=== PATIENT | female | born 1985 | race American Indian/Alaskan Native ===

== ENCOUNTER 2017-10-13 11:04 | Emergency (ER) | payer BC, OTHER ==
[2017-10-13] MEDS ORDERED: DUONEB *Not for PRN Use IH ONE ×2 (11:18→11:19)
[2017-10-13] MEDS ORDERED: XOPENEX IH ONE (11:36)
--- NOTE | 2017-10-13 11:40 | Emergency Department Report ---
ED Asthma HPI - General Chief Complaint: Adult Asthma Stated Complaint: MEGHAN/ASTHMA Time Seen by Provider: 10/13/17 11:24 Source: patient Mode of arrival: Ambulatory Limitations: No Limitations - History of Present Illness Initial Comments: Patient is a 32 years old female with history of asthma, presented to the ER with 3 weeks history of cough, shortness of breath and wheezing. Patient stated her symptoms better and for the last 2 days to get worse again. Productive cough with greenish sputum. Patient denied any fever, nausea or vomiting. No chest pain. Patient is a status post 1 month ago. MD Complaint: "asthma attack", shortness of breath, wheezing -: days(s), week(s) Asthma History: childhood onset Severity: moderate Context: recent URI Associated Symptoms: productive cough Treatments Prior to Arrival: inhaled bronchodilator, inhaled steroid - Related Data Current Asthma Therapy: inhaled bronchodilator, inhaled steroid Previous Rx's Medication Instructions Recorded Last Taken Type HYDROcodone/APAP 5-325 [[place] 1 each PO Q6HR PRN #12 tablet 12/26/15 Unknown Rx 5/325] Cyclobenzaprine [Flexeril] 10 mg PO TID PRN #15 tablet 06/16/16 Unknown Rx Ibuprofen [Motrin] 800 mg PO Q8HR PRN #15 tablet 06/16/16 Unknown Rx Allergies Allergy/AdvReac Type Severity Reaction Status Date / Time No Known Allergies Allergy Verified 12/26/15 00:24 ED Review of Systems ROS: Stated complaint: MEGHAN/ASTHMA Other details as noted in HPI Comment: All other systems reviewed and negative Respiratory: cough, shortness of breath, SOB with exertion, SOB at rest, wheezing Cardiovascular: denies: chest pain, palpitations Gastrointestinal: denies: abdominal pain, nausea, vomiting, diarrhea, hematochezia Neurological: denies: headache, weakness, numbness ED Past Medical Hx - Past Medical History Previous Medical History?: Yes Hx Asthma: Yes Additional medical history: Chronic TMJ - Surgical History Past Surgical History?: Yes Additional Surgical History: Left TMJ surgery - Social History Smoking Status: Current Every Day Smoker Substance Use Type: None - Medications Home Medications: Home Medications Medication Instructions Recorded Confirmed Last Taken Type HYDROcodone/APAP 5-325 [[place] 1 each PO Q6HR PRN #12 tablet 12/26/15 Unknown Rx 5/325] Cyclobenzaprine [Flexeril] 10 mg PO TID PRN #15 tablet 06/16/16 Unknown Rx Ibuprofen [Motrin] 800 mg PO Q8HR PRN #15 tablet 06/16/16 Unknown Rx ED Physical Exam - General Limitations: No Limitations General appearance: alert, in distress (moderate respiratory distress) - Head Head exam: Present: atraumatic, normocephalic, normal inspection - Eye Eye exam: Present: normal appearance, PERRL - ENT ENT exam: Present: normal exam, normal orophraynx, mucous membranes moist - Neck Neck exam: Present: normal inspection, full ROM. Absent: tenderness, meningismus - Respiratory Respiratory exam: Present: respiratory distress, wheezes, rhonchi, decreased breath sounds, prolonged expiratory. Absent: rales, stridor, chest wall tenderness, accessory muscle use - Cardiovascular Cardiovascular Exam: Present: regular rate, normal rhythm, normal heart sounds - GI/Abdominal GI/Abdominal exam: Present: soft, normal bowel sounds. Absent: distended, tenderness, guarding, rebound, rigid, organomegaly, mass, bruit, pulsatile mass , hernia - Extremities Exam Extremities exam: Present: normal inspection, full ROM, normal capillary refill. Absent: tenderness, pedal edema, joint swelling, calf tenderness - Back Exam Back exam: Present: normal inspection, full ROM. Absent: CVA tenderness (R), CVA tenderness (L) - Neurological Exam Neurological exam: Present: alert, oriented X3, CN II-XII intact, normal gait, reflexes normal. Absent: abnormal gait, motor sensory deficit - Skin Skin exam: Present: warm, intact, normal color ED Course Vital Signs 10/13/17 10/13/17 10/13/17 11:10 11:18 11:20 Temperature 98.7 F Pulse Rate 95 H Pulse Rate [ 83 Posterior Bilateral Throughout] Respiratory 16 Rate Respiratory 22 Rate [Posterior Bilateral Throughout] Blood Pressure 159/102 O2 Sat by Pulse 95 96 Oximetry 10/13/17 10/13/17 10/13/17 11:28 11:30 12:00 Temperature Pulse Rate 91 H Pulse Rate [ Posterior Bilateral Throughout] Respiratory 11 L 13 Rate Respiratory Rate [Posterior Bilateral Throughout] Blood Pressure 141/89 127/56 O2 Sat by Pulse 98 100 100 Oximetry 10/13/17 10/13/17 10/13/17 12:02 12:03 12:30 Temperature Pulse Rate Pulse Rate [ 85 79 Posterior Bilateral Throughout] Respiratory Rate Respiratory 22 22 Rate [Posterior Bilateral Throughout] Blood Pressure 141/89 O2 Sat by Pulse 83 L Oximetry 10/13/17 12:43 Temperature Pulse Rate Pulse Rate [ 103 H Posterior Bilateral Throughout] Respiratory Rate Respiratory 20 Rate [Posterior Bilateral Throughout] Blood Pressure O2 Sat by Pulse Oximetry - Reevaluation(s) Reevaluation #1: 10/13/17 13:07 Patient stated that she is feeling better but she still tight. I order 1 g of magnesium sulfate. ED Medical Decision Making - Lab Data Result diagrams: 10/13/17 11:45 10/13/17 11:45 Critical care attestation.: If time is entered above; I have spent that time in minutes in the direct care of this critically ill patient, excluding procedure time. ED Disposition Clinical Impression: Asthma exacerbation attacks Disposition: DC-01 TO HOME OR SELFCARE Is pt being admited?: No Condition: Stable Instructions: Asthma (ED) Referrals: PRIMARY CARE, [Primary Care Provider] - 3-5 Days
[2017-10-13] MEDS ORDERED: ZOFRAN IV ONE (11:46)
[2017-10-13] MEDS ORDERED: MORPHINE IV ONE (11:46)
[2017-10-13] MEDS ORDERED: MORPHINE ONE (11:47)
[2017-10-13] MEDS ORDERED: ZOFRAN ONE (11:47)
[2017-10-13 12:02] LABS: Basophils % (Auto) 0.6 % (0.0-1.8); Eosinophils # (Auto) 0.9 K/mm3 (0.0-0.4); Eosinophils % (Auto) 11.6 % (0.0-4.3); Hematocrit 37.3 % (30.3-42.9); Hemoglobin 12.1 gm/dl (10.1-14.3); Lymphocytes # (Auto) 3.2 K/mm3 (1.2-5.4); Lymphocytes % (Auto) 39.4 % (13.4-35.0); Mean Corpuscular HGB Conc 33 % (30-34); Mean Corpuscular Hemoglobin 30 pg (28-32); Mean Corpuscular Volume 93 fl (79-97); Monocytes # (Auto) 0.4 K/mm3 (0.0-0.8); Monocytes % (Auto) 5.4 % (0.0-7.3); Platelet Count 380 K/mm3 (140-440); Red Blood Count 4.02 M/mm3 (3.65-5.03); Red Cell Distribution Width 15.4 % (13.2-15.2)
--- NOTE | 2017-10-13 12:13 | XRay Report ---
AP CHEST: HISTORY: Short of breath, cough AP view of the chest demonstrates a normal mediastinal and cardiac contour with clear lungs and normal bony and soft tissue structures. IMPRESSION: Unremarkable AP chest.
[2017-10-13 12:21] LABS: Alanine Aminotransferase 22 units/L (7-56); Albumin 4.4 g/dL (3.9-5); BUN/Creatinine Ratio 14; Blood Urea Nitrogen 10 mg/dL (7-17); Calcium 9.6 mg/dL (8.4-10.2); Hemolysis Index 14
[2017-10-13] MEDS ORDERED: MAGNESIUM SULFATE IV ONE (13:05)
[2017-10-13] MEDS ORDERED: TORADOL IV ONE (13:52)
[2017-10-13] MEDS ORDERED: MAGNESIUM SULFATE 1 GM in NACL 0.9% 50 ML IV ONE (14:30)
[2017-10-13 15:28] VITALS: BP 143/96
== END 2017-10-13 15:28 | disposition home or self-care (01) ==
LOC: ED 11:04
DX: J45.901 Unspecified asthma with (acute) exacerbation (principal); F17.200 Nicotine dependence, unspecified, uncomplicated
CPT/HCPCS: 36415; 71045; 80053; 83880; 85025; 94640; 96365; 96375; 99284; J1885; J2270; J2405; J2930; J3475

== ENCOUNTER 2018-02-08 22:02 | Emergency (ER) | payer OTHER ==
[2018-02-08 22:08] VITALS: BP 154/97
[2018-02-08] MEDS ORDERED: DECADRON ONE (22:14)
[2018-02-08] MEDS ORDERED: DUONEB *Not for PRN Use IH ONE ×2 (22:15→22:16)
[2018-02-08] MEDS ORDERED: DECADRON IM ONE (22:16)
--- NOTE | 2018-02-08 22:19 | Emergency Department Report ---
ED Asthma HPI - General Chief Complaint: Adult Asthma Stated Complaint: ASTHMA Time Seen by Provider: 02/08/18 22:15 Source: patient Mode of arrival: Ambulatory Limitations: No Limitations - History of Present Illness Initial Comments: 33-year-old known asthmatic comes in reporting that she's been having a shortness of breathing and asthma symptoms for the last 4 days. Patient reports that she's been using her inhaler but not able to control her asthma. Patient denies any fever or chills or nausea no vomiting. She does complain of pleuritic chest pain with taking deep breaths. She also reports that she has thick yellowish mucus when she coughs. -: days(s) (4) Severity: moderate Context: none known Associated Symptoms: productive cough. denies: fever Treatments Prior to Arrival: inhaled bronchodilator - Related Data Current Asthma Therapy: inhaled bronchodilator Previous Rx's Medication Instructions Recorded Last Taken Type ALBUTEROL NEB's [Proventil 0.083% 2.5 mg IH TID PRN #30 nebu 10/13/17 Unknown Rx NEBS] ALBUTEROL Inhaler [ProAir HFA 2 puff IH QID PRN #1 inhalation 02/09/18 Unknown Rx Inhaler] Fluticasone/Salmeterol [Advair 1 each IH BID #1 blst.w.dev 02/09/18 Unknown Rx 100-50 Diskus] Prednisone [predniSONE 10 mg 10 mg PO .TAPER #1 tab.ds.pk 02/09/18 Unknown Rx (6-Day Pack, 21 Tabs)] Allergies Allergy/AdvReac Type Severity Reaction Status Date / Time No Known Allergies Allergy Verified 12/26/15 00:24 ED Review of Systems ROS: Stated complaint: ASTHMA Other details as noted in HPI Constitutional: denies: chills, fever Eyes: denies: eye pain, eye discharge, vision change ENT: denies: ear pain, throat pain Respiratory: cough, shortness of breath, wheezing Cardiovascular: chest pain, dyspnea on exertion Endocrine: no symptoms reported Gastrointestinal: denies: abdominal pain, nausea, diarrhea Genitourinary: denies: urgency, dysuria, discharge Musculoskeletal: denies: back pain, joint swelling, arthralgia Skin: denies: rash, lesions Neurological: denies: headache, weakness, paresthesias Psychiatric: denies: anxiety, depression Hematological/Lymphatic: denies: easy bleeding, easy bruising ED Past Medical Hx - Past Medical History Hx Asthma: Yes Additional medical history: Chronic TMJ - Surgical History Additional Surgical History: Left TMJ surgery - Social History Smoking Status: Former Smoker Substance Use Type: Alcohol - Medications Home Medications: Home Medications Medication Instructions Recorded Confirmed Last Taken Type ALBUTEROL NEB's [Proventil 0.083% 2.5 mg IH TID PRN #30 nebu 10/13/17 Unknown Rx NEBS] ALBUTEROL Inhaler [ProAir HFA 2 puff IH QID PRN #1 inhalation 02/09/18 Unknown Rx Inhaler] Fluticasone/Salmeterol [Advair 1 each IH BID #1 blst.w.dev 02/09/18 Unknown Rx 100-50 Diskus] Prednisone [predniSONE 10 mg 10 mg PO .TAPER #1 tab.ds.pk 02/09/18 Unknown Rx (6-Day Pack, 21 Tabs)] ED Physical Exam - General Limitations: No Limitations General appearance: alert, in no apparent distress - Head Head exam: Present: atraumatic, normocephalic - Eye Eye exam: Present: PERRL, EOMI - ENT ENT exam: Present: mucous membranes moist - Neck Neck exam: Present: full ROM. Absent: lymphadenopathy - Respiratory Respiratory exam: Present: wheezes, rhonchi, chest wall tenderness - Cardiovascular Cardiovascular Exam: Present: regular rate, normal rhythm. Absent: systolic murmur, diastolic murmur, rubs, gallop - GI/Abdominal GI/Abdominal exam: Present: soft, normal bowel sounds - Extremities Exam Extremities exam: Present: normal inspection - Back Exam Back exam: Present: normal inspection - Neurological Exam Neurological exam: Present: alert, oriented X3 - Psychiatric Psychiatric exam: Present: normal affect, normal mood - Skin Skin exam: Present: warm, dry, intact, normal color. Absent: rash ED Course Vital Signs 02/08/18 22:04 Temperature 98.7 F Pulse Rate 93 H Respiratory 22 Rate Blood Pressure 154/97 O2 Sat by Pulse 95 Oximetry - Reevaluation(s) Reevaluation #1: 02/08/18 23:50 Patient has had 1 treatment of DuoNeb. Patient is still very rhonchus and wheezing still reports pain with deep breath Reevaluation #2: 02/09/18 00:59 Patient reports that she feels a little bit better since haven't the second dose of the bronchodilator. Patient is requesting a refill on her Advair which is 100/50. ED Medical Decision Making - Radiology Data Radiology results: report reviewed, image reviewed FINAL REPORT PROCEDURE: Chest. TECHNIQUE: PA and lateral views. HISTORY: asthma attack with shortness of breathing. Pain COMPARISON: No prior studies are available for comparison. FINDINGS: The heart and mediastinum appear normal. The lungs are clear and well expanded. There are no pleural effusions. The soft tissues and regional skeleton are unremarkable. IMPRESSION: Normal study. Transcribed By: [facility] Dictated By: PA CHAUDHARY MD Electronically Authenticated By: PA CHAUDHARY MD Signed Date/Time: 02/08/182309 DD/ 09 TD/TT: 02/08/182309 - Medical Decision Making Patient has been evaluated by this provider fast track. Chest x-ray ordered DuoNeb in dexamethasone 8 mg IM ordered We'll reevaluate patient when she is completed her nebulizer treatment and and this had her steroids a chest x-ray. Discussed the patient and her chest x-ray was within normal limits. D-dimer is normal Breathing has improved since having the second round of a bronchodilator and steriod. Discussed the patient will discharge her home on steroid taper bronchodilator and Advair 100/50. Patient verbalizes understanding Critical care attestation.: If time is entered above; I have spent that time in minutes in the direct care of this critically ill patient, excluding procedure time. ED Disposition Clinical Impression: Asthma exacerbation attacks Qualifiers: Asthma severity: unspecified severity Asthma persistence: unspecified Qualified Code(s): J45.901 - Unspecified asthma with (acute) exacerbation Disposition: DC-01 TO HOME OR SELFCARE Is pt being admited?: No Does the pt Need Aspirin: No Condition: Stable Additional Instructions: Please use asthma medication as prescribed. If symptoms persist or gets worse please follow up with her primary care provider or the emergency room. Prescriptions: ALBUTEROL Inhaler [ProAir HFA Inhaler] 2 puff IH QID PRN #1 inhalation PRN Reason: Shortness Of Breath Fluticasone/Salmeterol [Advair 100-50 Diskus] 1 each IH BID #1 blst.w.dev Prednisone [predniSONE 10 mg (6-Day Pack, 21 Tabs)] 10 mg PO .TAPER #1 tab.ds.pk Forms: Work/School Release Form(ED)
--- NOTE | 2018-02-08 23:15 | XRay Report ---
FINAL REPORT PROCEDURE: Chest. TECHNIQUE: PA and lateral views. HISTORY: asthma attack with shortness of breathing. Pain COMPARISON: No prior studies are available for comparison. FINDINGS: The heart and mediastinum appear normal. The lungs are clear and well expanded. There are no pleural effusions. The soft tissues and regional skeleton are unremarkable. IMPRESSION: Normal study.
[2018-02-08] MEDS ORDERED: XOPENEX IH ONE (23:49)
[2018-02-09 00:19] LABS: Basophils % (Auto) 0.4 % (0.0-1.8); Eosinophils # (Auto) 0.7 K/mm3 (0.0-0.4); Eosinophils % (Auto) 6.1 % (0.0-4.3); Hematocrit 38.8 % (30.3-42.9); Hemoglobin 13.3 gm/dl (10.1-14.3); Lymphocytes # (Auto) 2.2 K/mm3 (1.2-5.4); Lymphocytes % (Auto) 20.3 % (13.4-35.0); Mean Corpuscular HGB Conc 34 % (30-34); Mean Corpuscular Hemoglobin 32 pg (28-32); Mean Corpuscular Volume 95 fl (79-97); Monocytes # (Auto) 0.3 K/mm3 (0.0-0.8); Monocytes % (Auto) 2.8 % (0.0-7.3); Platelet Count 371 K/mm3 (140-440); Red Cell Distribution Width 13.8 % (13.2-15.2)
[2018-02-09 00:33] LABS: BUN/Creatinine Ratio 20; Blood Urea Nitrogen 12 mg/dL (7-17); Calcium 9.1 mg/dL (8.4-10.2); Hemolysis Index 10
== END 2018-02-09 01:05 | disposition home or self-care (01) ==
LOC: ED 22:02
DX: J45.901 Unspecified asthma with (acute) exacerbation (principal); Z87.891 Personal history of nicotine dependence
CPT/HCPCS: 36415; 71046; 80048; 85025; 85379; 96372; 99284; J1100

== ENCOUNTER 2018-03-04 23:22 | Emergency (ER) | payer OTHER ==
[~2018-03-04 23:22] MED LIST: DUONEB *Not for PRN Use IH ONE; PROVENTIL IH ONE
[2018-03-04] MEDS ORDERED: DUONEB *Not for PRN Use IH ONE (23:24)
[2018-03-04] MEDS ORDERED: PROVENTIL IH ONE (23:24)
[2018-03-04 23:38] VITALS: BP 116/77
[2018-03-05] MEDS ORDERED: DELTASONE PO ONE (00:05)
[2018-03-05] MEDS ORDERED: DELTASONE ONE (00:18)
[2018-03-05] MEDS ORDERED: PROVENTIL IH ONE ×3 (01:19→04:00)
[2018-03-05] MEDS ORDERED: BENADRYL ONE (03:51)
[2018-03-05] MEDS ORDERED: TORADOL ONE (03:51)
[2018-03-05] MEDS ORDERED: REGLAN ONE (03:51)
[2018-03-05] MEDS ORDERED: TORADOL IV ONE (03:52)
[2018-03-05] MEDS ORDERED: REGLAN IV ONE (03:52)
[2018-03-05] MEDS ORDERED: BENADRYL IV ONE (03:52)
--- NOTE | 2018-03-05 04:17 | Emergency Department Report ---
ED Asthma HPI - General Chief Complaint: Adult Asthma Stated Complaint: SOB Time Seen by Provider: 03/05/18 04:12 Source: patient Mode of arrival: Ambulatory Limitations: No Limitations - History of Present Illness Initial Comments: 33-year-old female comes in complaining of shortness of breath reporting it's my asthma, whenever my sinuses drain I start coughing and a traditional asthma. Patient reports that she can't get her inhalants for Friday and that's why she's come in. Patient denies any fever or chills no nausea no vomiting chest wheezing and shortness of breath. Patient currently has no known drug allergies patient reports that she takes Advair and Combivent which she reports works the best. She has been using the nebulizer treatments but feels they are not adequate. Patient also complains of a headache that has just started while in fast track. She reports that the headache is bilateral temples achy and sharp. -: days(s) (2) Context: recent URI, ran out of meds Associated Symptoms: productive cough - Related Data Current Asthma Therapy: inhaled bronchodilator, inhaled steroid Previous Rx's Medication Instructions Recorded Last Taken Type ALBUTEROL Inhaler [ProAir HFA 2 puff IH QID PRN #1 inhalation 02/09/18 Unknown Rx Inhaler] Fluticasone/Salmeterol [Advair 1 each IH BID #1 blst.w.dev 02/09/18 Unknown Rx 100-50 Diskus] ALBUTEROL NEB's [Proventil 0.083% 2.5 mg IH TID PRN #30 nebu 03/05/18 Unknown Rx NEBS] Ipratropium/Albuter (Nf) 2 puff IH QID #1 inha 03/05/18 Unknown Rx [Combivent (Nf)] Prednisone [predniSONE 10 mg 10 mg PO .TAPER #1 tab.ds.pk 03/05/18 Unknown Rx (6-Day Pack, 21 Tabs)] Allergies Allergy/AdvReac Type Severity Reaction Status Date / Time No Known Allergies Allergy Verified 12/26/15 00:24 ED Review of Systems ROS: Stated complaint: SOB Other details as noted in HPI ENT: other (postnasal drip) Respiratory: cough, shortness of breath, wheezing Cardiovascular: denies: chest pain Endocrine: no symptoms reported Gastrointestinal: denies: abdominal pain, nausea, diarrhea ED Past Medical Hx - Past Medical History Previous Medical History?: Yes Hx Asthma: Yes Additional medical history: Chronic TMJ - Surgical History Past Surgical History?: Yes Additional Surgical History: Left TMJ surgery - Social History Smoking Status: Former Smoker Substance Use Type: Alcohol - Medications Home Medications: Home Medications Medication Instructions Recorded Confirmed Last Taken Type ALBUTEROL Inhaler [ProAir HFA 2 puff IH QID PRN #1 inhalation 02/09/18 Unknown Rx Inhaler] Fluticasone/Salmeterol [Advair 1 each IH BID #1 blst.w.dev 02/09/18 Unknown Rx 100-50 Diskus] ALBUTEROL NEB's [Proventil 0.083% 2.5 mg IH TID PRN #30 nebu 03/05/18 Unknown Rx NEBS] Ipratropium/Albuter (Nf) 2 puff IH QID #1 inha 03/05/18 Unknown Rx [Combivent (Nf)] Prednisone [predniSONE 10 mg 10 mg PO .TAPER #1 tab.ds.pk 03/05/18 Unknown Rx (6-Day Pack, 21 Tabs)] ED Physical Exam - General Limitations: No Limitations General appearance: alert, in no apparent distress - Head Head exam: Present: atraumatic, normocephalic - ENT ENT exam: Present: mucous membranes moist - Neck Neck exam: Present: normal inspection - Respiratory Respiratory exam: Present: wheezes, prolonged expiratory - Cardiovascular Cardiovascular Exam: Present: regular rate, normal rhythm. Absent: systolic murmur, diastolic murmur, rubs, gallop - GI/Abdominal GI/Abdominal exam: Present: soft, normal bowel sounds ED Course Vital Signs 03/04/18 23:30 Temperature 98.1 F Pulse Rate 84 Respiratory 22 Rate Blood Pressure 116/77 O2 Sat by Pulse 97 Oximetry ED Medical Decision Making - Medical Decision Making Patient has been evaluated by this provider in fast track. Patient has been given duo nebs 2 and albuterol nebs 2 as well as IV Toradol and Reglan and Benadryl for headache. Patient reports that that has helped tremendously. Discussed the patient to increase her fluid intake use her inhalers as prescribed and follow up with her primary care provider if symptoms persist or gets worse. Critical care attestation.: If time is entered above; I have spent that time in minutes in the direct care of this critically ill patient, excluding procedure time. ED Disposition Clinical Impression: Asthma attack Qualifiers: Asthma severity: unspecified severity Asthma persistence: unspecified Qualified Code(s): J45.901 - Unspecified asthma with (acute) exacerbation Migraine Qualifiers: Migraine type: unspecified Status migrainosus presence: without status migrainosus Intractability: intractable Qualified Code(s): G43.919 - Migraine, unspecified, intractable, without status migrainosus Disposition: TO HOME OR SELFCARE Is pt being admited?: No Does the pt Need Aspirin: No Condition: Stable Instructions: Migraine Headache (ED) Additional Instructions: Please use inhalers as prescribed. Please follow up with her primary care provider if symptoms persist or gets worse. Prescriptions: ALBUTEROL NEB's [Proventil 0.083% NEBS] 2.5 mg IH TID PRN #30 nebu PRN Reason: Wheezing Ipratropium/Albuter (Nf) [Combivent (Nf)] 2 puff IH QID #1 inha Prednisone [predniSONE 10 mg (6-Day Pack, 21 Tabs)] 10 mg PO .TAPER #1 tab.ds.pk Referrals: PRIMARY CARE, [Primary Care Provider] - 3-5 Days Forms: Work/School Release Form(ED)
== END 2018-03-05 04:43 | disposition home or self-care (01) ==
LOC: ED 23:22
DX: J45.901 Unspecified asthma with (acute) exacerbation (principal); G43.919 Migraine, unspecified, intractable, without status migrainosus; Z87.891 Personal history of nicotine dependence
CPT/HCPCS: 93005; 93010; 94640; 96374; 96375; 99283; J1200; J1885; J2765; J7512

== ENCOUNTER 2018-04-09 15:30 | Inpatient (IN) | payer OTHER ==
[2018-04-09] MEDS ORDERED: DUONEB *Not for PRN Use IH ONE ×3 (15:47→19:41)
[2018-04-09 15:57] LABS: Basophils # (Auto) 0.1 K/mm3 (0.0-0.1); Basophils % (Auto) 0.7 % (0.0-1.8); Eosinophils % (Auto) 7.5 % (0.0-4.3); Hematocrit 38.1 % (30.3-42.9); Hemoglobin 13.4 gm/dl (10.1-14.3); Lymphocytes % (Auto) 22.4 % (13.4-35.0); Mean Corpuscular HGB Conc 35 % (30-34); Mean Corpuscular Hemoglobin 34 pg (28-32); Mean Corpuscular Volume 97 fl (79-97); Monocytes # (Auto) 0.8 K/mm3 (0.0-0.8); Monocytes % (Auto) 5.7 % (0.0-7.3); Platelet Count 366 K/mm3 (140-440); Red Blood Count 3.93 M/mm3 (3.65-5.03); Red Cell Distribution Width 13.4 % (13.2-15.2)
[2018-04-09 16:43] LABS: BUN/Creatinine Ratio 20; Blood Urea Nitrogen 14 mg/dL (7-17); Calcium 9.3 mg/dL (8.4-10.2); Hemolysis Index 9
--- NOTE | 2018-04-09 19:02 | XRay Report ---
FINAL REPORT EXAM: XR CHEST ROUTINE 2V HISTORY: Shortness of breath TECHNIQUE: PA and lateral views of the chest PRIORS: CXR 02/08/2018 FINDINGS: Lines, tubes, and devices: N/A Lungs and pleura: Trachea is normal in position. Lungs are clear of infiltrate, pleural effusion, vascular congestion, or pneumothorax. No change. Cardiomediastinal silhouette: Cardiac and mediastinal silhouettes are unremarkable. Other: Bony structures are intact. IMPRESSION: No acute cardiopulmonary process seen. No change.
--- NOTE | 2018-04-09 19:17 | Emergency Department Report ---
ED Shortness of Breath HPI - General Chief Complaint: Dyspnea/Respdistress Stated Complaint: CHEST PAIN/ASTHMA Time Seen by Provider: 04/09/18 19:17 Source: patient Mode of arrival: Ambulatory Limitations: No Limitations - History of Present Illness MD Complaint: shortness of breath, cough, "asthma attack" -: Sudden Severity: severe Pain Scale: 8 Consistency: constant Improves With: oxygen, bronchodilators Worsens With: nothing Known History Of: asthma Associated Symptoms: cough Treatments Prior to Arrival: oxygen, bronchodilator - Related Data Home Oxygen Therapy: No Previous Rx's Medication Instructions Recorded Last Taken Type ALBUTEROL Inhaler [ProAir HFA 2 puff IH QID PRN #1 inhalation 02/09/18 Unknown Rx Inhaler] Fluticasone/Salmeterol [Advair 1 each IH BID #1 blst.w.dev 02/09/18 Unknown Rx 100-50 Diskus] ALBUTEROL NEB's [Proventil 0.083% 2.5 mg IH TID PRN #30 nebu 03/05/18 Unknown Rx NEBS] Ipratropium/Albuter (Nf) 2 puff IH QID #1 inha 03/05/18 Unknown Rx [Combivent (Nf)] Prednisone [predniSONE 10 mg 10 mg PO .TAPER #1 tab.ds.pk 03/05/18 Unknown Rx (6-Day Pack, 21 Tabs)] Allergies Allergy/AdvReac Type Severity Reaction Status Date / Time No Known Allergies Allergy Verified 12/26/15 00:24 ED Review of Systems ROS: Stated complaint: CHEST PAIN/ASTHMA Other details as noted in HPI Comment: All other systems reviewed and negative Constitutional: denies: chills, fever Eyes: denies: eye pain, eye discharge ENT: denies: ear pain Respiratory: cough, shortness of breath, SOB at rest Cardiovascular: dyspnea on exertion. denies: chest pain, palpitations Endocrine: no symptoms reported Gastrointestinal: denies: abdominal pain, nausea, vomiting, diarrhea Genitourinary: denies: urgency, dysuria, frequency Musculoskeletal: denies: back pain, joint swelling Skin: denies: rash, lesions Neurological: denies: headache, weakness, numbness Psychiatric: anxiety. denies: depression Hematological/Lymphatic: denies: easy bleeding, easy bruising ED Past Medical Hx - Past Medical History Previous Medical History?: Yes Hx Asthma: Yes Additional medical history: Chronic TMJ, pneumonia - Surgical History Past Surgical History?: Yes Additional Surgical History: Left TMJ surgery - Social History Smoking Status: Former Smoker Substance Use Type: None - Medications Home Medications: Home Medications Medication Instructions Recorded Confirmed Last Taken Type ALBUTEROL Inhaler [ProAir HFA 2 puff IH QID PRN #1 inhalation 02/09/18 Unknown Rx Inhaler] Fluticasone/Salmeterol [Advair 1 each IH BID #1 blst.w.dev 02/09/18 Unknown Rx 100-50 Diskus] ALBUTEROL NEB's [Proventil 0.083% 2.5 mg IH TID PRN #30 nebu 03/05/18 Unknown Rx NEBS] Ipratropium/Albuter (Nf) 2 puff IH QID #1 inha 03/05/18 Unknown Rx [Combivent (Nf)] Prednisone [predniSONE 10 mg 10 mg PO .TAPER #1 tab.ds.pk 03/05/18 Unknown Rx (6-Day Pack, 21 Tabs)] ED Physical Exam - General Limitations: No Limitations General appearance: alert, in no apparent distress - Head Head exam: Present: atraumatic, normocephalic, normal inspection - Eye Eye exam: Present: normal appearance, PERRL, EOMI Pupils: Present: normal accommodation - ENT ENT exam: Present: normal exam, normal orophraynx, mucous membranes moist - Neck Neck exam: Present: normal inspection, full ROM. Absent: tenderness - Respiratory Respiratory exam: Present: respiratory distress, wheezes, rales, rhonchi - Cardiovascular Cardiovascular Exam: Present: normal rhythm, tachycardia, normal heart sounds - GI/Abdominal GI/Abdominal exam: Present: soft, normal bowel sounds. Absent: distended, tenderness, guarding, rebound, rigid - Extremities Exam Extremities exam: Present: normal inspection, full ROM, normal capillary refill. Absent: tenderness - Back Exam Back exam: Present: normal inspection, full ROM. Absent: tenderness, CVA tenderness (R), CVA tenderness (L) - Neurological Exam Neurological exam: Present: alert, oriented X3, CN II-XII intact - Psychiatric Psychiatric exam: Present: normal affect, normal mood, anxious - Skin Skin exam: Present: warm, dry, intact, normal color. Absent: rash ED Course Vital Signs 04/09/18 04/09/18 04/09/18 15:39 15:56 15:58 Temperature 98.0 F Pulse Rate 97 H Pulse Rate [ Anterior Bilateral Throughout] Pulse Rate [ 94 H Bilateral] Respiratory 28 H Rate Respiratory Rate [Anterior Bilateral Throughout] Respiratory 16 Rate [Bilateral ] Blood Pressure 129/85 Blood Pressure [Right] O2 Sat by Pulse 95 95 Oximetry 04/09/18 04/09/18 04/09/18 16:13 16:48 18:09 Temperature Pulse Rate 119 H Pulse Rate [ Anterior Bilateral Throughout] Pulse Rate [ 96 H Bilateral] Respiratory 28 H Rate Respiratory Rate [Anterior Bilateral Throughout] Respiratory 16 Rate [Bilateral ] Blood Pressure Blood Pressure [Right] O2 Sat by Pulse 95 97 Oximetry 04/09/18 04/09/18 04/09/18 18:15 18:30 18:45 Temperature Pulse Rate Pulse Rate [ Anterior Bilateral Throughout] Pulse Rate [ Bilateral] Respiratory Rate Respiratory Rate [Anterior Bilateral Throughout] Respiratory Rate [Bilateral ] Blood Pressure 132/86 137/90 137/90 Blood Pressure [Right] O2 Sat by Pulse 95 97 98 Oximetry 04/09/18 04/09/18 04/09/18 19:00 19:11 19:15 Temperature Pulse Rate Pulse Rate [ Anterior Bilateral Throughout] Pulse Rate [ Bilateral] Respiratory Rate Respiratory Rate [Anterior Bilateral Throughout] Respiratory Rate [Bilateral ] Blood Pressure 129/85 129/85 Blood Pressure [Right] O2 Sat by Pulse 91 98 100 Oximetry 04/09/18 04/09/18 04/09/18 19:31 19:45 20:00 Temperature Pulse Rate Pulse Rate [ Anterior Bilateral Throughout] Pulse Rate [ Bilateral] Respiratory Rate Respiratory Rate [Anterior Bilateral Throughout] Respiratory Rate [Bilateral ] Blood Pressure 144/80 144/80 152/90 Blood Pressure [Right] O2 Sat by Pulse 100 100 95 Oximetry 04/09/18 04/09/18 04/09/18 20:15 20:31 20:45 Temperature Pulse Rate Pulse Rate [ Anterior Bilateral Throughout] Pulse Rate [ Bilateral] Respiratory Rate Respiratory Rate [Anterior Bilateral Throughout] Respiratory Rate [Bilateral ] Blood Pressure 152/90 144/80 144/80 Blood Pressure [Right] O2 Sat by Pulse 96 95 96 Oximetry 04/09/18 04/09/18 04/09/18 21:01 21:15 21:30 Temperature Pulse Rate Pulse Rate [ Anterior Bilateral Throughout] Pulse Rate [ 107 H Bilateral] Respiratory Rate Respiratory Rate [Anterior Bilateral Throughout] Respiratory 20 Rate [Bilateral ] Blood Pressure 133/97 133/97 Blood Pressure [Right] O2 Sat by Pulse 96 97 Oximetry 04/09/18 04/09/18 04/09/18 21:31 21:40 21:45 Temperature Pulse Rate Pulse Rate [ Anterior Bilateral Throughout] Pulse Rate [ 111 H Bilateral] Respiratory Rate Respiratory Rate [Anterior Bilateral Throughout] Respiratory 22 Rate [Bilateral ] Blood Pressure 92/72 92/72 Blood Pressure [Right] O2 Sat by Pulse 99 98 Oximetry 04/09/18 04/09/18 04/09/18 22:00 22:15 22:17 Temperature Pulse Rate Pulse Rate [ Anterior Bilateral Throughout] Pulse Rate [ Bilateral] Respiratory Rate Respiratory Rate [Anterior Bilateral Throughout] Respiratory Rate [Bilateral ] Blood Pressure 136/99 136/99 136/99 Blood Pressure [Right] O2 Sat by Pulse 99 100 98 Oximetry 04/10/18 04/10/18 04/10/18 00:00 00:16 00:30 Temperature Pulse Rate Pulse Rate [ Anterior Bilateral Throughout] Pulse Rate [ Bilateral] Respiratory Rate Respiratory Rate [Anterior Bilateral Throughout] Respiratory Rate [Bilateral ] Blood Pressure 136/99 136/99 125/77 Blood Pressure [Right] O2 Sat by Pulse 98 98 98 Oximetry 04/10/18 04/10/18 04/10/18 00:58 01:00 01:16 Temperature Pulse Rate Pulse Rate [ Anterior Bilateral Throughout] Pulse Rate [ Bilateral] Respiratory Rate Respiratory Rate [Anterior Bilateral Throughout] Respiratory Rate [Bilateral ] Blood Pressure 125/77 125/87 125/87 Blood Pressure [Right] O2 Sat by Pulse 94 98 96 Oximetry 04/10/18 04/10/18 04/10/18 01:19 01:30 01:46 Temperature Pulse Rate Pulse Rate [ Anterior Bilateral Throughout] Pulse Rate [ 105 H Bilateral] Respiratory Rate Respiratory Rate [Anterior Bilateral Throughout] Respiratory 18 Rate [Bilateral ] Blood Pressure 135/79 135/79 Blood Pressure [Right] O2 Sat by Pulse 99 99 Oximetry 04/10/18 04/10/18 04/10/18 02:00 02:16 02:30 Temperature Pulse Rate Pulse Rate [ Anterior Bilateral Throughout] Pulse Rate [ Bilateral] Respiratory Rate Respiratory Rate [Anterior Bilateral Throughout] Respiratory Rate [Bilateral ] Blood Pressure 132/71 132/71 139/69 Blood Pressure [Right] O2 Sat by Pulse 100 96 93 Oximetry 04/10/18 04/10/18 04/10/18 02:46 03:00 03:16 Temperature Pulse Rate Pulse Rate [ Anterior Bilateral Throughout] Pulse Rate [ Bilateral] Respiratory Rate Respiratory Rate [Anterior Bilateral Throughout] Respiratory Rate [Bilateral ] Blood Pressure 139/69 139/69 137/72 Blood Pressure [Right] O2 Sat by Pulse 97 95 96 Oximetry 04/10/18 04/10/18 04/10/18 03:30 04:30 04:41 Temperature 97.8 F Pulse Rate 111 H Pulse Rate [ Anterior Bilateral Throughout] Pulse Rate [ Bilateral] Respiratory 24 24 Rate Respiratory Rate [Anterior Bilateral Throughout] Respiratory Rate [Bilateral ] Blood Pressure 131/75 120/71 Blood Pressure 120/71 [Right] O2 Sat by Pulse 95 93 Oximetry 04/10/18 04/10/18 04/10/18 04:42 05:05 05:15 Temperature Pulse Rate Pulse Rate [ 120 H Anterior Bilateral Throughout] Pulse Rate [ 118 H Bilateral] Respiratory 24 Rate Respiratory 20 Rate [Anterior Bilateral Throughout] Respiratory 24 Rate [Bilateral ] Blood Pressure Blood Pressure [Right] O2 Sat by Pulse 94 Oximetry - Reevaluation(s) Reevaluation #1: 04/10/18 01:07 Patient ambulated in the ED I was severely short of breath. She says she does not feel like she can go home and she would like to stay in the hospital to get better. She was working very hard to breathe after ambulating in the ED. I consulted the hospitalist textile conservator Dr Galdamez. He will admit patient to the hospital for further evaluation and management. 04/10/18 22:36 ED Medical Decision Making - Lab Data Result diagrams: 04/09/18 15:47 04/09/18 15:47 - Radiology Data Radiology results: report reviewed, image reviewed - Medical Decision Making Acute asthma exacerbation. Bronchitis. Critical care attestation.: If time is entered above; I have spent that time in minutes in the direct care of this critically ill patient, excluding procedure time. ED Disposition Clinical Impression: Bronchitis Asthma exacerbation Qualifiers: Asthma severity: severe Asthma persistence: unspecified Qualified Code(s): J45.901 - Unspecified asthma with (acute) exacerbation Disposition: 09 OP ADMIT IP TO THIS HOSP Is pt being admited?: Yes Does the pt Need Aspirin: No Condition: Stable Time of Disposition: 01:07
[2018-04-09] MEDS ORDERED: LEVAQUIN 750MG/150ML 750 MG/150 ML BAG IV ONE (19:40)
[2018-04-09] MEDS ORDERED: SOLU-Medrol IV ONE (19:40)
[2018-04-09] MEDS ORDERED: TESSALON PERLES PO ONE (20:54)
[2018-04-10] MEDS ORDERED: PROVENTIL IH ONE (00:32)
[2018-04-10] MEDS ORDERED: ATROVENT IH ONE (00:32)
[2018-04-10] MEDS ORDERED: TYLENOL PO PRN (02:08)
[2018-04-10] MEDS ORDERED: ZOFRAN IV PRN (02:09)
[2018-04-10] MEDS ORDERED: NON-FORMULARY (Prednisone [Prednisone 10 Mg (6-Day Pack, 21 Tabs)] 10 MG) PO SCH (02:45)
[2018-04-10] MEDS: SOLU-Medrol IV SCH ×3 (03:40→21:58)
--- NOTE | 2018-04-10 03:40 | History and Physical Report ---
CHIEF COMPLAINT: Shortness of breath. HISTORY OF PRESENT ILLNESS: The patient is a 33-year-old female with known history of asthma, presenting with shortness of breath and wheezing. There is also a history of associated pleuritic chest pain. There is no history of fever. No history of chills, but there is also history of cough. There is no history of nausea or vomiting. The patient presented to the Emergency Room where she received breathing treatment in addition to steroid treatment, but continued to have difficulty in breathing with wheezing and unable to ambulate without getting short of breath and the patient was presented for admission. PAST MEDICAL HISTORY: Pertinent for asthma, pneumonia and temporomandibular joint disease. PAST SURGICAL HISTORY: Pertinent for left temporomandibular joint surgery. FAMILY HISTORY: Noncontributory. SOCIAL HISTORY: The patient is a former smoker, but does not smoke currently. The patient does not drink alcohol and does not use illicit drugs. MEDICATIONS: The patient is on ProAir 2 puffs inhalation q.i.d., Advair Diskus 100/50 one puff by inhalation twice daily. Also, the patient is on albuterol nebulizer 3 times daily 2.5 mg by inhalation as needed for shortness of breath and on prednisone Dosepak for 21 tablets. The patient is also on ipratropium/albuterol metered dose inhaler 2 puffs q.i.d. ALLERGIES: There are no known drug allergies. REVIEW OF SYSTEMS: CONSTITUTIONAL: There is no fever, no chills, no diaphoresis. HEENT: There is no headache or sore throat. CARDIOVASCULAR: There is pleuritic chest pain with no orthopnea. RESPIRATORY: Shortness of breath is present. Cough present. GASTROINTESTINAL: There is no nausea, no vomiting, no abdominal pain, diarrhea or constipation. NEUROLOGICAL: There is no numbness, no dizziness, no altered mental status. MUSCULOSKELETAL: There is no joint pain or swelling. DERMATOLOGICAL: There is no skin rash or itching. GENITOURINARY: There is no dysuria, hematuria or flank pain. Rest of the system review is normal. PHYSICAL EXAMINATION: GENERAL: At the time of exam, the patient was found to be alert, oriented x 3 and in mild to moderate distress due to shortness of breath. VITAL SIGNS: At the initial time of presentation shows temperature of 98 degrees Fahrenheit, pulse of 97, respirations 28, blood pressure 129/85, O2 sat of 95% on oxygen. HEENT: Shows pupils to be equal, round, reactive to light and accommodating. Extraocular muscles are intact. NECK: Supple with no JVD or carotid bruit. CARDIOVASCULAR SYSTEM: Show first and second heart sounds with no gallops or murmur. RESPIRATORY: Reduced air entry to both lungs with bilateral crackles and expiratory wheezing. GASTROINTESTINAL SYSTEM: Show abdomen to be full, soft, nontender with no organomegaly or rigidity. NEUROLOGIC: No focal deficit. MUSCULOSKELETAL: Show no joint swelling or tenderness. DERMATOLOGICAL SYSTEM: Show no skin rash. GENITOURINARY: Showing no costovertebral angle tenderness. PERTINENT LABORATORY DATA AND IMAGING STUDIES: The patient had chest x-ray done that shows no acute cardiopulmonary lesion. The patient's CBC shows elevated white count of 13,300 with normal hemoglobin, normal hematocrit with CBC differential showing elevated eosinophil count of 7.5% and elevated segmented neutrophils. The patient's ABG showed normal pH, normal pCO2 with low pO2 of 77 and O2 sat of 96% on room air. The patient's chemistry was unremarkable. DIAGNOSES: 1. Asthma exacerbation. 2. Hypoxia. PLAN: 1. The patient will be admitted to medical floor. 2. The patient will be on oxygen by nasal cannula at 2 liter per minute. 3. The patient will be on albuterol nebulizer 2.5 mg every 4 hours. 4. The patient will be on IV Solu-Medrol 60 mg every 6 hours. 5. The patient will be on IV Levaquin 750 mg daily. 6. The patient will be on Tylenol 650 mg by mouth every 4 hours for fever, headache and IV Zofran 4 mg every 8 hours for nausea and vomiting. 7. The patient will be on Robitussin 200 mg by mouth every 4 hours as needed for cough. 8. The patient's diet will be regular diet. JOB# [id number] OCN/NTS
[2018-04-10] MEDS: PROVENTIL IH SCH ×3 (05:02→12:05)
[2018-04-10] MEDS: LEVAQUIN 750MG/150ML 750 MG/150 ML BAG IV SCH (13:02)
[2018-04-10] MEDS: HEPARIN SUB-Q SCH ×2 (13:02→21:59)
[2018-04-10] MEDS ORDERED: MOTRIN PO PRN (13:33)
[2018-04-10] MEDS: DUONEB *Not for PRN Use IH SCH ×2 (15:40→20:56)
[2018-04-10] MEDS ORDERED: ULTRAM PO ONE (21:45)
--- NOTE | 2018-04-10 21:58 | Event Note ---
Date: 04/10/18 Patient was admitted this morning with worsening shortness of breath, acute exacerbation of bronchial asthma, on nebulizers, IV steroids, supportive care Patient seen and examined, medical records reviewed, agree with the current management Possible discharge in 1-2 days if stable
[2018-04-11] MEDS ORDERED: RESTORIL PO ONE (01:15)
[2018-04-11] MEDS: ROBITUSSIN PO PRN ×5 (01:24→23:28)
[2018-04-11] MEDS: DUONEB *Not for PRN Use IH SCH ×5 (02:00→20:16)
[2018-04-11] MEDS: SOLU-Medrol IV SCH ×3 (06:42→21:21)
[2018-04-11 06:55] LABS: Hemoglobin 12.5 gm/dl (10.1-14.3); Mean Corpuscular HGB Conc 33 % (30-34); Mean Corpuscular Hemoglobin 32 pg (28-32); Mean Corpuscular Volume 98 fl (79-97); Platelet Count 380 K/mm3 (140-440); Red Blood Count 3.87 M/mm3 (3.65-5.03); Red Cell Distribution Width 13.5 % (13.2-15.2)
[2018-04-11] MEDS: PROVENTIL IH PRN (07:00)
[2018-04-11 07:12] LABS: BUN/Creatinine Ratio 21; Blood Urea Nitrogen 17 mg/dL (7-17); Calcium 9.9 mg/dL (8.4-10.2); Hemolysis Index 15
[2018-04-11] MEDS: HEPARIN SUB-Q SCH ×2 (09:58→21:22)
[2018-04-11] MEDS: LEVAQUIN 750MG/150ML 750 MG/150 ML BAG IV SCH (09:58)
[2018-04-11 10:11] LABS: Band Neutrophils # (Manual) 0.3 K/mm3; Basophils % (Manual) 0 % (0.0-1.8); Eosinophils % (Manual) 0 % (0.0-4.3); Total Cells Counted 100
[2018-04-11 10:50] LABS: Platelet Estimate Consistent w Auto; RBC Morphology Normal
--- NOTE | 2018-04-11 11:19 | Progress Note ---
Assessment and Plan Acute asthma exacerbation Acute hypoxic respiratory failure, due to asthma exacerbation SIRS likely due to acute asthma exacerbation Leukocytosis, likely due to SIRS and steroids Obesity, likely due to excess calorie DVT prophylaxis - Will provide scheduled nebulizer breathing treatment and as needed - Place on empiric steroid and antibiotic - chest x-ray was unremarkable - Provide supplemental oxygen to keep oxygen saturation above 92% - Consider to consult pulmonary if no improvement in next 24 hours - We'll place on sliding scale of insulin as patient will be on empiric steroid - We will resume home medications, monitor BP - Provide DVT prophylaxis with Lovenox. - Dietary recommendation and counseling Brief History: 32-year-old female with no history of asthma presented with shortness of breath and wheezing Radiological data: Chest x-ray: No acute infiltrates Hospitalist Physical exam: GENERAL: well-developed and obese AAF lying on bed appeared to be in no discomfort. HEENT: Normocephalic. Atraumatic. No conjunctival congestion or icterus. Patient has moist mucous membranes. NECK: Supple. Trachea midline. CHEST/LUNGS:b/l wheezes auscultated bilaterally, breathing nonlabored. No crackles or rhonchi. HEART/CARDIOVASCULAR: Regular in rate and rhythm. S1 and S2 positive. ABDOMEN: Abdomen is soft, nontender. Patient has normal bowel sounds. SKIN: There is no rash. Warm and dry. NEURO: No focal motor deficit. Follows command. MUSCULOSKELETAL: No joint effusion or tenderness. EXTRIMITY: No edema, no cyanosis or clubbing. PSYCH: Cooperative. Subjective Date of service: 04/11/18 Interval history: Patient seen and examined. Medical records and medication list reviewed. No acute event overnight noted by the RN. Patient denies any chest pain but has difficulty breathing with exertion. Patient is tolerating diet. Discussed plan of care at bedside with patient. Objective - Constitutional Vitals: Vital Signs - 12hr 04/11/18 04/11/18 04/11/18 02:04 02:28 05:43 Temperature 98.5 F Pulse Rate 84 Pulse Rate [ 96 H 98 H Posterior Bilateral Throughout] Respiratory 18 Rate Respiratory 22 18 Rate [Posterior Bilateral Throughout] Blood Pressure 98/56 O2 Sat by Pulse 91 Oximetry 04/11/18 04/11/18 04/11/18 07:01 10:39 10:55 Temperature Pulse Rate Pulse Rate [ 102 H 104 H Posterior Bilateral Throughout] Respiratory Rate Respiratory 18 22 Rate [Posterior Bilateral Throughout] Blood Pressure O2 Sat by Pulse 97 Oximetry - Labs CBC & Chem 7: 04/11/18 06:18 18 06:18 Labs: Abnormal lab results 04/11/18 04/11/18 Range/Units 06:18 06:18 WBC 26.5 H (4.5-11.0) K/mm3 MCV 98 H (79-97) fl Seg Neuts % (Manual) 85.0 H (40.0-70.0) % Lymphocytes % (Manual) 6.0 L (13.4-35.0) % Monocytes % (Manual) 8.0 H (0.0-7.3) % Seg Neutrophils # Man 22.5 H (1.8-7.7) K/mm3 Monocytes # (Manual) 2.1 H (0.0-0.8) K/mm3 Carbon Dioxide 21 L (22-30) mmol/L Glucose 146 H (65-100) mg/dL
[2018-04-11] MEDS: ULTRAM PO PRN ×2 (12:57→21:21)
[2018-04-12] MEDS: PROVENTIL IH PRN (00:30)
[2018-04-12] MEDS: SOLU-Medrol IV SCH ×2 (06:23→13:52)
[2018-04-12] MEDS: ULTRAM PO PRN (06:24)
[2018-04-12] MEDS: ROBITUSSIN PO PRN ×2 (06:24→13:52)
[2018-04-12] MEDS: DUONEB *Not for PRN Use IH SCH ×3 (08:24→15:33)
[2018-04-12] MEDS: HEPARIN SUB-Q SCH (09:51)
[2018-04-12] MEDS: LEVAQUIN 750MG/150ML 750 MG/150 ML BAG IV SCH (09:51)
[2018-04-12 12:42] VITALS: BP 87/50
[2018-04-12 13:16] LABS: Hematocrit 41.3 % (30.3-42.9); Hemoglobin 13.3 gm/dl (10.1-14.3); Mean Corpuscular HGB Conc 32 % (30-34); Mean Corpuscular Hemoglobin 32 pg (28-32); Mean Corpuscular Volume 99 fl (79-97); Platelet Count 394 K/mm3 (140-440); Red Blood Count 4.18 M/mm3 (3.65-5.03); Red Cell Distribution Width 13.7 % (13.2-15.2)
--- NOTE | 2018-04-12 15:30 | Discharge Summary ---
Providers - Providers Date of Admission: 04/10/18 02:50 Date of discharge: 04/12/18 Attending physician: NINA JAIN Primary care physician: MEDIA PRODUCTION MANAGER Hospitalization Condition: Stable Hospital course: Discharge diagnosis: Acute asthma exacerbation Acute hypoxic respiratory failure, due to asthma exacerbation SIRS likely due to acute asthma exacerbation Leukocytosis, likely due to SIRS and steroids Obesity, likely due to excess calorie DVT prophylaxis - Will provide scheduled nebulizer breathing treatment and as needed - Place on empiric steroid and antibiotic - chest x-ray was unremarkable - Provide supplemental oxygen to keep oxygen saturation above 92% - Consider to consult pulmonary if no improvement in next 24 hours - We'll place on sliding scale of insulin as patient will be on empiric steroid - We will resume home medications, monitor BP - Provide DVT prophylaxis with Lovenox. - Dietary recommendation and counseling Brief History: 32-year-old female with no history of asthma presented with shortness of breath and wheezing Radiological data: Chest x-ray: No acute infiltrates Hospitalist Physical exam: GENERAL: well-developed and obese AAF lying on bed appeared to be in no discomfort. HEENT: Normocephalic. Atraumatic. No conjunctival congestion or icterus. Patient has moist mucous membranes. NECK: Supple. Trachea midline. CHEST/LUNGS:b/l wheezes auscultated bilaterally, breathing nonlabored. No crackles or rhonchi. HEART/CARDIOVASCULAR: Regular in rate and rhythm. S1 and S2 positive. ABDOMEN: Abdomen is soft, nontender. Patient has normal bowel sounds. SKIN: There is no rash. Warm and dry. NEURO: No focal motor deficit. Follows command. MUSCULOSKELETAL: No joint effusion or tenderness. EXTRIMITY: No edema, no cyanosis or clubbing. PSYCH: Cooperative. 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 Follow up with: PRIMARY CARE, [Primary Care Provider] - 3-5 Days Prescriptions: ALBUTEROL Inhaler [ProAir HFA Inhaler] 2 puff IH QID PRN #1 inhalation PRN Reason: Shortness Of Breath predniSONE [Deltasone] 50 mg PO QDAY #5 tab
== END 2018-04-12 16:30 | disposition home or self-care (01) | DRG 189 ==
LOC: ED 15:30 → 3A 04-10 02:50
PROVIDERS: ADMIT Internal Medicine; ATTEND Internal Medicine
PROC: 4A033R1 Measurement of Arterial Saturation, Peripheral, Percutaneous Approach (ICD-10-PCS; principal; 2018-04-09)
DX: J96.01 Acute respiratory failure with hypoxia (principal); J45.901 Unspecified asthma with (acute) exacerbation; Z87.891 Personal history of nicotine dependence; R65.10 Systemic inflammatory response syndrome (SIRS) of non-infectious origin without acute organ dysfunction; Z68.36 Body mass index [BMI] 36.0-36.9, adult; Z71.3 Dietary counseling and surveillance; E66.09 Other obesity due to excess calories
CPT/HCPCS: 36415; 71046; 80048; 82803; 85007; 85025; 85027; 87040; 93005; 93010; 94640; 94760; 99406; J1644; J1956; J2930

== ENCOUNTER 2018-09-26 17:10 | Emergency (ER) | payer OTHER ==
[2018-09-26] MEDS ORDERED: DELTASONE PO ONE (18:01)
[2018-09-26] MEDS ORDERED: TORADOL IM ONE (18:01)
[2018-09-26] MEDS ORDERED: TESSALON PERLES PO ONE (18:01)
[2018-09-26] MEDS ORDERED: PROVENTIL IH ONE (18:02)
[2018-09-26] MEDS ORDERED: PEPCID PO ONE (18:02)
[2018-09-26] MEDS ORDERED: ATROVENT IH ONE (18:02)
[2018-09-26] MEDS ORDERED: ZITHROMAX PO ONE (18:03)
--- NOTE | 2018-09-26 18:47 | Emergency Department Report ---
Addendum entered and electronically signed by YI ROSSI PA 10/24/18 06:54: signed Original Note: <SHABNAM DONALDSON - Last Filed: 09/26/18 18:42> - General Chief Complaint: Upper Respiratory Infection Stated Complaint: ASTHMA/EAR INFECTION Time Seen by Provider: 09/26/18 17:34 Source: patient Mode of arrival: Ambulatory Limitations: No Limitations - History of Present Illness Initial Comments: 33-year-old female with a past medical history of asthma without previous intubations presents to the hospital complaining of cough and cold symptoms with wheezing 2 days. Home nebulized treatments are not helping with symptoms. She pays of a cough that is productive but unable to cough up sputum. She complains of chest soreness and bilateral ear pressure rated 8/10 in intensity. Positive nasal congestion noted. Patient denies fever. - Related Data Previous Rx's Medication Instructions Recorded Last Taken Type Fluticasone/Salmeterol [Advair 1 each IH BID #1 blst.w.dev 02/09/18 04/08/18 10:00 Rx 100-50 Diskus] predniSONE [Deltasone] 50 mg PO QDAY #5 tab 04/12/18 Unknown Rx ALBUTEROL Inhaler (OR & NICU) 2 puff IH Q4HR PRN #1 inhalation 09/26/18 Unknown Rx [ProAir HFA Inhaler] ALBUTEROL NEB's [Proventil 0.083% 2.5 mg IH TID PRN #30 nebu 09/26/18 Unknown Rx NEBS] Azithromycin [Zithromax TAB] 250 mg PO QDAY #4 tablet 09/26/18 Unknown Rx Benzonatate [Tessalon Perles] 100 mg PO Q8HR PRN #20 capsule 09/26/18 Unknown Rx Guaifenesin/Pseudoephedrne HCl 1 tab PO BID PRN #20 tab 09/26/18 Unknown Rx [Mucinex D ER 1,200-120 mg Tab] predniSONE [Deltasone] 40 mg PO QDAY 5 Days 09/26/18 Unknown Rx Allergies Allergy/AdvReac Type Severity Reaction Status Date / Time No Known Allergies Allergy Verified 09/26/18 17:17 ED Review of Systems Comment: All other systems reviewed and negative ED Past Medical Hx - Past Medical History Hx Asthma: Yes Additional medical history: Chronic TMJ - Surgical History Additional Surgical History: Left TMJ surgery - Social History Smoking Status: Never Smoker Substance Use Type: None - Medications Home Medications: Home Medications Medication Instructions Recorded Confirmed Last Taken Type Fluticasone/Salmeterol [Advair 1 each IH BID #1 blst.w.dev 02/09/18 04/11/18 04/08/18 10:00 Rx 100-50 Diskus] predniSONE [Deltasone] 50 mg PO QDAY #5 tab 04/12/18 Unknown Rx ALBUTEROL Inhaler (OR & NICU) 2 puff IH Q4HR PRN #1 inhalation 09/26/18 Unknown Rx [ProAir HFA Inhaler] ALBUTEROL NEB's [Proventil 0.083% 2.5 mg IH TID PRN #30 nebu 09/26/18 Unknown Rx NEBS] Azithromycin [Zithromax TAB] 250 mg PO QDAY #4 tablet 09/26/18 Unknown Rx Benzonatate [Tessalon Perles] 100 mg PO Q8HR PRN #20 capsule 09/26/18 Unknown Rx Guaifenesin/Pseudoephedrne HCl 1 tab PO BID PRN #20 tab 09/26/18 Unknown Rx [Mucinex D ER 1,200-120 mg Tab] predniSONE [Deltasone] 40 mg PO QDAY 5 Days 09/26/18 Unknown Rx ED Physical Exam - General Limitations: No Limitations - Other Other exam information: General: No limitations, patient is alert in no acute distress Head exam: Atraumatic, normocephalic Eyes exam: Normal appearance ENT: Moist mucous membrane, normal oropharynx, good light reflex bilateral TMs without erythema. Positive nasal congestion Neck exam: Normal inspection, full range of motion, no meningismus nontender Respiratory exam: Frequent cough, bilateral expiratory wheezing without tachypnea or accessory muscle use Cardiovascular: Normal rate and rhythm Abdomen: Soft, nondistended, and nontender, with normal bowel sounds, no rebound, or guarding Extremity: Full range of motion normal inspection no deformity, no calf tenderness or edema Back: Normal Inspection, full range of motion, no tenderness Neurologic: Alert, oriented x3, cranial nerves intact, no motor or sensory deficit Psychiatric: normal affect, normal mood Skin: Warm, dry, intact ED Medical Decision Making - Medical Decision Making In the ED patient treated with prednisone, nebulize treatment, Toradol, Pepcid, and Tessalon Perles X-ray and reassessment planning at disposition. [facility] Yi davis. Patient prepped for discharge for bronchitis/atypical pneumonia diagnosis - Differential Diagnosis bronchitis, pneumonia, otitis, sinusitis Critical Care Time: No ED Disposition Clinical Impression: URI with cough and congestion Acute bronchitis Qualifiers: Bronchitis organism: unspecified organism Qualified Code(s): J20.9 - Acute bronchitis, unspecified Disposition: TO HOME OR SELFCARE Is pt being admited?: No Does the pt Need Aspirin: No Condition: Stable Instructions: Acute Bronchitis (ED) Additional Instructions: Take the medication as prescribed. Follow up with your doctor or the doctor/clinic provided. Return if symptoms worsen as indicated by your discharge instructions Prescriptions: ALBUTEROL Inhaler (OR & NICU) [ProAir HFA Inhaler] 2 puff IH Q4HR PRN #1 inhalation PRN Reason: Shortness Of Breath ALBUTEROL NEB's [Proventil 0.083% NEBS] 2.5 mg IH TID PRN #30 nebu PRN Reason: Wheezing Azithromycin [Zithromax TAB] 250 mg PO QDAY #4 tablet Benzonatate [Tessalon Perles] 100 mg PO Q8HR PRN #20 capsule PRN Reason: Cough Guaifenesin/Pseudoephedrne HCl [Mucinex D ER 1,200-120 mg Tab] 1 tab PO BID PRN #20 tab PRN Reason: Congestion predniSONE [Deltasone] 40 mg PO QDAY 5 Days Referrals: [facility] [Provider Group] - 3-5 Days RADHA GERONIMO MD [Primary Care Provider] - 3-5 Days Forms: Work/School Release Form(ED) Time of Disposition: 18:50 <YI ROSSI - Last Filed: 09/26/18 20:13> ED Review of Systems ROS: Stated complaint: ASTHMA/EAR INFECTION Other details as noted in HPI ED Course Vital Signs 09/26/18 09/26/18 09/26/18 17:17 18:15 18:42 Temperature 98.7 F Pulse Rate 82 Pulse Rate [ 60 62 Posterior Bilateral Throughout] Respiratory 18 Rate Respiratory 18 18 Rate [Posterior Bilateral Throughout] Blood Pressure 128/80 O2 Sat by Pulse 97 Oximetry ED Medical Decision Making - Radiology Data Radiology results: report reviewed X-ray chest 2 views dictated by radiologist and report reviewed by myself. Please see details below Findings [facility] [address] [place] [address] XRay Report Signed Patient: HUONG KRAFT MR#: [id number] : 1985 Acct:[id number] Age/Sex: 33 / F ADM Date: 09/26/18 Loc: ED Attending Dr: Ordering Physician: SHABNAM DONALDSON MD Date of Service: 09/26/18 Procedure(s): XR chest routine 2V Accession Number(s): [id number] cc: SHABNAM DONALDSON MD Fluoro Time In Minutes: FINAL REPORT EXAM: XR CHEST ROUTINE 2V HISTORY: wheeze, cough COMPARISON: March 2018. FINDINGS:: Frontal and lateral views of the chest obtained. Cardiac silhouette is within normal limits. No focal consolidation or effusion. No pneumothorax. Visualized bony thorax is grossly intact. IMPRESSION:: No acute findings. Transcribed By: LMA Dictated By: STEVE POEPLES MD Electronically Authenticated By: STEVE PEOPLES MD Signed Date/Time: 09/26/182002 DD/ 01 TD/TT: 09/26/182001 - Medical Decision Making Patient x-ray 2 views chest dictated by radiologist report reviewed by myself and no acute findings noted. Patient lungs are clear present. She says she is feeling much better after prednisone, nebulizer treatment, Toradol, Pepcid and Tessalon Perles. Discharge home in stable condition with prescription for albuterol nebs, albuterol inhaler, prednisone, Mucinex the ER, Tessalon Perle and Z-Davey. I discussed the page Saldivar diagnosis, treatment plan and need to follow-up with her primary care physician in 2-3 days and she agreed. Vital signs are stable she is afebrile. Discharged from ED Critical care attestation.: If time is entered above; I have spent that time in minutes in the direct care of this critically ill patient, excluding procedure time.
--- NOTE | 2018-09-26 20:03 | XRay Report ---
FINAL REPORT EXAM: XR CHEST ROUTINE 2V HISTORY: wheeze, cough COMPARISON: March 2018. FINDINGS:: Frontal and lateral views of the chest obtained. Cardiac silhouette is within normal limi ts. No focal consolidation or effusion. No pneumothorax. Visualized bony thorax is grossly intact. IMPRESSION:: No acute findings.
[2018-09-27 14:25] VITALS: BP 138/76
== END 2018-09-26 20:27 | disposition home or self-care (01) ==
LOC: ED 17:10
DX: J06.9 Acute upper respiratory infection, unspecified (principal); J20.9 Acute bronchitis, unspecified; J45.909 Unspecified asthma, uncomplicated
CPT/HCPCS: 71046; 94640; 96372; 99283; J1885; J7512

== ENCOUNTER 2019-03-12 19:09 | Emergency (ER) | payer SELFPAY ==
[2019-03-12 20:16] LABS: Basophils # (Auto) 0.2 K/mm3 (0.0-0.1); Basophils % (Auto) 1.2 % (0.0-1.8); Eosinophils # (Auto) 0.9 K/mm3 (0.0-0.4); Eosinophils % (Auto) 7.4 % (0.0-4.3); Hematocrit 40.4 % (30.3-42.9); Hemoglobin 13.6 gm/dl (10.1-14.3); Lymphocytes # (Auto) 3.3 K/mm3 (1.2-5.4); Mean Corpuscular HGB Conc 34 % (30-34); Mean Corpuscular Volume 99 fl (79-97); Monocytes # (Auto) 0.6 K/mm3 (0.0-0.8); Monocytes % (Auto) 5.1 % (0.0-7.3); Platelet Count 402 K/mm3 (140-440); Red Blood Count 4.07 M/mm3 (3.65-5.03)
[2019-03-12 20:28] LABS: BUN/Creatinine Ratio 9; Blood Urea Nitrogen 8 mg/dL (7-17); Calcium 9.6 mg/dL (8.4-10.2); Hemolysis Index 11
[2019-03-12] MEDS ORDERED: ATROVENT IH ONE (20:37)
[2019-03-12] MEDS: PROVENTIL IH ONE ×2 (20:55→22:43)
[2019-03-12] MEDS ORDERED: PROVENTIL IH ONE (22:39)
[2019-03-12] MEDS ORDERED: DELTASONE PO STA (23:01)
[2019-03-12] MEDS ORDERED: BENADRYL PO STA (23:01)
[2019-03-12] MEDS ORDERED: TYLENOL/CODEINE PO STA (23:03)
--- NOTE | 2019-03-12 23:06 | Emergency Department Report ---
ED Asthma HPI - General Chief Complaint: Adult Asthma Stated Complaint: MEGHAN/ASTHMA Time Seen by Provider: 03/12/19 22:58 Source: patient Mode of arrival: Ambulatory Limitations: No Limitations - History of Present Illness MD Complaint: "asthma attack", shortness of breath, wheezing -: Gradual Severity: mild Context: recent URI Associated Symptoms: productive cough Treatments Prior to Arrival: inhaled bronchodilator - Related Data Previous Rx's Medication Instructions Recorded Last Taken Type Fluticasone/Salmeterol [Advair 1 each IH BID #1 blst.w.dev 02/09/18 04/08/18 10:00 Rx 100-50 Diskus] predniSONE [Deltasone] 50 mg PO QDAY #5 tab 04/12/18 Unknown Rx ALBUTEROL Inhaler (OR & NICU) 2 puff IH Q4HR PRN #1 inhalation 09/26/18 Unknown Rx [ProAir HFA Inhaler] ALBUTEROL NEB's [Proventil 0.083% 2.5 mg IH TID PRN #30 nebu 09/26/18 Unknown Rx NEBS] Azithromycin [Zithromax TAB] 250 mg PO QDAY #4 tablet 09/26/18 Unknown Rx Benzonatate [Tessalon Perles] 100 mg PO Q8HR PRN #20 capsule 09/26/18 Unknown Rx Guaifenesin/Pseudoephedrne HCl 1 tab PO BID PRN #20 tab 09/26/18 Unknown Rx [Mucinex D ER 1,200-120 mg Tab] predniSONE [Deltasone] 40 mg PO QDAY 5 Days 09/26/18 Unknown Rx ALBUTEROL Inhaler (OR & NICU) 2 puff IH QID PRN #1 inhalation 03/12/19 Unknown Rx [ProAir HFA Inhaler] Azithromycin [Zithromax] 500 mg PO QDAY #5 tablet 03/12/19 Unknown Rx Montelukast [Singulair] 10 mg PO QPM #14 tablet 03/12/19 Unknown Rx guaiFENesin/CODEINE [Robitussin AC] 5 ml PO Q6H PRN #120 ml 03/12/19 Unknown Rx predniSONE [Deltasone] 50 mg PO QDAY #5 tab 03/12/19 Unknown Rx Allergies Allergy/AdvReac Type Severity Reaction Status Date / Time No Known Allergies Allergy Verified 09/26/18 17:17 ED Review of Systems ROS: Stated complaint: MEGHAN/ASTHMA Other details as noted in HPI Comment: All other systems reviewed and negative ED Past Medical Hx - Past Medical History Hx Asthma: Yes Additional medical history: Chronic TMJ, pneumonia - Surgical History Past Surgical History?: Yes Additional Surgical History: Left TMJ surgery - Social History Smoking Status: Former Smoker Substance Use Type: None - Medications Home Medications: Home Medications Medication Instructions Recorded Confirmed Last Taken Type Fluticasone/Salmeterol [Advair 1 each IH BID #1 blst.w.dev 02/09/18 04/11/18 04/08/18 10:00 Rx 100-50 Diskus] predniSONE [Deltasone] 50 mg PO QDAY #5 tab 04/12/18 Unknown Rx ALBUTEROL Inhaler (OR & NICU) 2 puff IH Q4HR PRN #1 inhalation 09/26/18 Unknown Rx [ProAir HFA Inhaler] ALBUTEROL NEB's [Proventil 0.083% 2.5 mg IH TID PRN #30 nebu 09/26/18 Unknown Rx NEBS] Azithromycin [Zithromax TAB] 250 mg PO QDAY #4 tablet 09/26/18 Unknown Rx Benzonatate [Tessalon Perles] 100 mg PO Q8HR PRN #20 capsule 09/26/18 Unknown Rx Guaifenesin/Pseudoephedrne HCl 1 tab PO BID PRN #20 tab 09/26/18 Unknown Rx [Mucinex D ER 1,200-120 mg Tab] predniSONE [Deltasone] 40 mg PO QDAY 5 Days 09/26/18 Unknown Rx ALBUTEROL Inhaler (OR & NICU) 2 puff IH QID PRN #1 inhalation 03/12/19 Unknown Rx [ProAir HFA Inhaler] Azithromycin [Zithromax] 500 mg PO QDAY #5 tablet 03/12/19 Unknown Rx Montelukast [Singulair] 10 mg PO QPM #14 tablet 03/12/19 Unknown Rx guaiFENesin/CODEINE [Robitussin AC] 5 ml PO Q6H PRN #120 ml 03/12/19 Unknown Rx predniSONE [Deltasone] 50 mg PO QDAY #5 tab 03/12/19 Unknown Rx ED Physical Exam - General Limitations: No Limitations General appearance: alert, in distress (mild) - Head Head exam: Present: atraumatic, normocephalic - Eye Eye exam: Present: normal appearance, PERRL, EOMI - ENT ENT exam: Present: mucous membranes moist - Neck Neck exam: Present: normal inspection, full ROM - Respiratory Respiratory exam: Present: normal lung sounds bilaterally, wheezes, rhonchi. Absent: respiratory distress - Cardiovascular Cardiovascular Exam: Present: regular rate, normal rhythm. Absent: systolic murmur, diastolic murmur, rubs, gallop - GI/Abdominal GI/Abdominal exam: Present: soft, normal bowel sounds - Extremities Exam Extremities exam: Present: normal inspection - Back Exam Back exam: Present: normal inspection - Neurological Exam Neurological exam: Present: alert, oriented X3 - Psychiatric Psychiatric exam: Present: normal affect, normal mood - Skin Skin exam: Present: warm, dry, intact, normal color. Absent: rash ED Course Vital Signs 03/12/19 03/12/19 03/12/19 19:23 20:57 22:43 Temperature 98.9 F Pulse Rate 100 H Pulse Rate [ 94 H 88 Anterior] Respiratory 16 Rate Respiratory 18 18 Rate [Anterior] Blood Pressure 134/87 Blood Pressure [Left] O2 Sat by Pulse 95 Oximetry 03/13/19 00:56 Temperature Pulse Rate 90 Pulse Rate [ Anterior] Respiratory 18 Rate Respiratory Rate [Anterior] Blood Pressure Blood Pressure 123/74 [Left] O2 Sat by Pulse 95 Oximetry ED Medical Decision Making - Lab Data Result diagrams: 03/12/19 19:42 03/12/19 19:42 - Radiology Data Radiology results: report reviewed (no infiltrate or effusion noted) - Medical Decision Making 35-year-old [place] female asthma exacerbation responding well to treatment provided emergency department.. She chest x-ray is consistent with a reactive airway disease to the therapy, speaking in full sentences and significant production and wheezing. Good airway movement. She can ambulate without dyspnea. No fever or sputum production. Advised to follow with primary care provider for reevaluation of her asthma and likely adjustment in her current asthma therapy department. I did not find an infectious processes or any triggers on this visit, but advised her to be in a good idea to keep a diary of preceding factors which lead to her asthma exacerbations. Also advised the importance of peak flow meters. Critical care attestation.: If time is entered above; I have spent that time in minutes in the direct care of this critically ill patient, excluding procedure time. ED Disposition Clinical Impression: Asthma exacerbation, Bronchitis, Cough Disposition: DC-01 TO HOME OR SELFCARE Is pt being admited?: No Does the pt Need Aspirin: No Condition: Stable Instructions: Chronic Bronchitis (ED) Prescriptions: predniSONE [Deltasone] 50 mg PO QDAY #5 tab ALBUTEROL Inhaler (OR & NICU) [ProAir HFA Inhaler] 2 puff IH QID PRN #1 inhalation PRN Reason: Shortness Of Breath guaiFENesin/CODEINE [Robitussin AC] 5 ml PO Q6H PRN #120 ml PRN Reason: Cough Montelukast [Singulair] 10 mg PO QPM #14 tablet Azithromycin [Zithromax] 500 mg PO QDAY #5 tablet Referrals: ELIAS SERRANO MD [Primary Care Provider] - 3-5 Days
--- NOTE | 2019-03-12 23:36 | XRay Report ---
CHEST 2 VIEWS INDICATION / CLINICAL INFORMATION: Wheezing and shortness of breath. History of breathing treatments monthly for one year. COMPARISON: None available. FINDINGS: SUPPORT DEVICES: None. HEART / MEDIASTINUM: No significant abnormality. LUNGS / PLEURA: There is bilateral central bronchiectasis/bronchial thickening. The lungs are clear. No significant pleural effusion or pneumothorax. ADDITIONAL FINDINGS: No significant additional findings. IMPRESSION: 1. No acute findings. 2. Probable reactive airway disease. Signer Name: Skip Arroyo MD Signed: 03/12/2019 11:32 PM Workstation Name: [id number]
[2019-03-13 00:57] VITALS: BP 123/74
== END 2019-03-13 00:57 | disposition home or self-care (01) ==
LOC: ED 19:09
DX: J45.901 Unspecified asthma with (acute) exacerbation (principal); Z87.891 Personal history of nicotine dependence; Z98.890 Other specified postprocedural states; Z79.899 Other long term (current) drug therapy
CPT/HCPCS: 36415; 71046; 80048; 85025; 94640; 94644; 99284; J7512

== ENCOUNTER 2019-03-27 18:23 | Emergency (ER) | payer SELFPAY ==
--- NOTE | 2019-03-27 18:32 | Event Note ---
ED Screening Note Date of service: 03/27/19 Time: 18:31 ED Screening Note: This is a 34 y.o. F. that presents to the ER with productive cough, chest tightness, and wheezing since yesterday. Patient recently treated for reactive airway disease 2 weeks ago with antibiotics and steroids. She admits to using her child inhaler. This initial assessment/diagnostic orders/clinical plan/treatment(s) is/are subject to change based on patients health status, clinical progression and re-assessment by fellow clinical providers in the ED. Further treatment and workup at subsequent clinical providers discretion. Patient/guardian urged not to elope from the ED as their condition may be serious if not clinically assessed and managed. Initial orders include: CXR
[2019-03-27] MEDS ORDERED: DECADRON IV ONE (19:36)
[2019-03-27] MEDS ORDERED: PROVENTIL IH ONE (19:36)
[2019-03-27] MEDS ORDERED: ATROVENT IH ONE (19:36)
--- NOTE | 2019-03-27 20:00 | Emergency Department Report ---
ED Asthma HPI - General Chief Complaint: Adult Asthma Stated Complaint: ASTHMA Time Seen by Provider: 03/27/19 18:30 Source: patient Mode of arrival: Ambulatory Limitations: No Limitations - History of Present Illness Initial Comments: Patient is a 34-year-old female presents to the emergency room with complaints of an asthma exacerbation that began yesterday. 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 States she has been using her albuterol inhaler and albuterol nebulizer treatments. Patient states she ran out of her dulera yesterday. She denies ever having to be intubated. She states she was last admitted for her asthma 2 months ago. Has associated dry cough, rhinorrhea, postnasal drip. Denies any productive cough, fever, sick contacts. - Related Data Previous Rx's Medication Instructions Recorded Last Taken Type Fluticasone/Salmeterol [Advair 1 each IH BID #1 blst.w.dev 02/09/18 04/08/18 10:00 Rx 100-50 Diskus] predniSONE [Deltasone] 50 mg PO QDAY #5 tab 04/12/18 Unknown Rx Azithromycin [Zithromax TAB] 250 mg PO QDAY #4 tablet 09/26/18 Unknown Rx Benzonatate [Tessalon Perles] 100 mg PO Q8HR PRN #20 capsule 09/26/18 Unknown Rx Guaifenesin/Pseudoephedrne HCl 1 tab PO BID PRN #20 tab 09/26/18 Unknown Rx [Mucinex D ER 1,200-120 mg Tab] ALBUTEROL Inhaler (OR & NICU) 2 puff IH QID PRN #1 inhalation 03/12/19 Unknown Rx [ProAir HFA Inhaler] Azithromycin [Zithromax] 500 mg PO QDAY #5 tablet 03/12/19 Unknown Rx Montelukast [Singulair] 10 mg PO QPM #14 tablet 03/12/19 Unknown Rx guaiFENesin/CODEINE [Robitussin AC] 5 ml PO Q6H PRN #120 ml 03/12/19 Unknown Rx predniSONE [Deltasone] 50 mg PO QDAY #5 tab 03/12/19 Unknown Rx ALBUTEROL Inhaler (OR & NICU) 2 puff IH Q4HR PRN #1 inhalation 03/27/19 Unknown Rx [ProAir HFA Inhaler] ALBUTEROL NEB's [Proventil 0.083% 2.5 mg IH TID PRN #1 box 03/27/19 Unknown Rx NEBS] predniSONE [Deltasone] 40 mg PO QDAY 7 Days #14 tablet 03/27/19 Unknown Rx Allergies Allergy/AdvReac Type Severity Reaction Status Date / Time No Known Allergies Allergy Verified 09/26/18 17:17 ED Review of Systems ROS: Stated complaint: ASTHMA Other details as noted in HPI Comment: All other systems reviewed and negative ED Past Medical Hx - Past Medical History Previous Medical History?: Yes Hx Asthma: Yes Additional medical history: Chronic TMJ, pneumonia - Surgical History Past Surgical History?: Yes Additional Surgical History: Left TMJ surgery - Social History Smoking Status: Former Smoker Substance Use Type: Prescribed - Medications Home Medications: Home Medications Medication Instructions Recorded Confirmed Last Taken Type Fluticasone/Salmeterol [Advair 1 each IH BID #1 blst.w.dev 02/09/18 04/11/18 04/08/18 10:00 Rx 100-50 Diskus] predniSONE [Deltasone] 50 mg PO QDAY #5 tab 04/12/18 Unknown Rx Azithromycin [Zithromax TAB] 250 mg PO QDAY #4 tablet 09/26/18 Unknown Rx Benzonatate [Tessalon Perles] 100 mg PO Q8HR PRN #20 capsule 09/26/18 Unknown Rx Guaifenesin/Pseudoephedrne HCl 1 tab PO BID PRN #20 tab 09/26/18 Unknown Rx [Mucinex D ER 1,200-120 mg Tab] ALBUTEROL Inhaler (OR & NICU) 2 puff IH QID PRN #1 inhalation 03/12/19 Unknown Rx [ProAir HFA Inhaler] Azithromycin [Zithromax] 500 mg PO QDAY #5 tablet 03/12/19 Unknown Rx Montelukast [Singulair] 10 mg PO QPM #14 tablet 03/12/19 Unknown Rx guaiFENesin/CODEINE [Robitussin AC] 5 ml PO Q6H PRN #120 ml 03/12/19 Unknown Rx predniSONE [Deltasone] 50 mg PO QDAY #5 tab 03/12/19 Unknown Rx ALBUTEROL Inhaler (OR & NICU) 2 puff IH Q4HR PRN #1 inhalation 03/27/19 Unknown Rx [ProAir HFA Inhaler] ALBUTEROL NEB's [Proventil 0.083% 2.5 mg IH TID PRN #1 box 03/27/19 Unknown Rx NEBS] predniSONE [Deltasone] 40 mg PO QDAY 7 Days #14 tablet 03/27/19 Unknown Rx ED Physical Exam - General Limitations: No Limitations General appearance: alert, in no apparent distress - Head Head exam: Present: atraumatic, normocephalic - Eye Eye exam: Present: normal appearance - ENT ENT exam: Present: normal orophraynx, mucous membranes moist, other (pale boggy turbinates) - Respiratory Respiratory exam: Present: respiratory distress (mild), wheezes (diffuse wheezing throughout), prolonged expiratory. Absent: rales, rhonchi, stridor, chest wall tenderness, accessory muscle use, decreased breath sounds - Cardiovascular Cardiovascular Exam: Present: regular rate, normal rhythm, normal heart sounds. Absent: systolic murmur, diastolic murmur, rubs, gallop - Neurological Exam Neurological exam: Present: alert, oriented X3 - Psychiatric Psychiatric exam: Present: normal affect, normal mood - Skin Skin exam: Present: warm, dry, intact ED Course Vital Signs 03/27/19 03/27/19 03/27/19 18:25 19:21 19:52 Temperature 98.8 F Pulse Rate Pulse Rate [ 78 88 Anterior] Respiratory 22 Rate Respiratory 18 18 Rate [Anterior] Blood Pressure 107/86 Blood Pressure [Right] O2 Sat by Pulse 95 Oximetry 03/27/19 03/27/19 03/27/19 21:20 21:41 23:03 Temperature 98.4 F Pulse Rate 98 H Pulse Rate [ 88 92 H Anterior] Respiratory 18 Rate Respiratory 19 19 Rate [Anterior] Blood Pressure Blood Pressure 127/71 [Right] O2 Sat by Pulse 98 Oximetry - Reevaluation(s) Reevaluation #1: 03/27/19 9:15 PM continued wheezing on exam will order xopenex and magnesium Reevaluation #2: 03/27/19 22:41 pt wheezing has significantly improved and she feels much better ED Medical Decision Making - Lab Data Vital Signs 03/27/19 03/27/19 03/27/19 18:25 19:21 19:52 Temperature 98.8 F Pulse Rate Pulse Rate [ 78 88 Anterior] Respiratory 22 Rate Respiratory 18 18 Rate [Anterior] Blood Pressure 107/86 Blood Pressure [Right] O2 Sat by Pulse 95 Oximetry 03/27/19 03/27/19 03/27/19 21:20 21:41 23:03 Temperature 98.4 F Pulse Rate 98 H Pulse Rate [ 88 92 H Anterior] Respiratory 18 Rate Respiratory 19 19 Rate [Anterior] Blood Pressure Blood Pressure 127/71 [Right] O2 Sat by Pulse 98 Oximetry - Medical Decision Making Patient is a 34-year-old female presents to the emergency room with complaints of an asthma exacerbation that began yesterday. 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 States she has been using her albuterol inhaler and albuterol nebulizer treatments. Patient states she ran out of her dulera yesterday. She denies ever having to be intubated. She states she was last admitted for her asthma 2 months ago. Has associated dry cough, rhinorrhea, postnasal drip. Denies any productive cough, fever, sick contacts. on exam: pt with diffuse wheezing, prolonged expiratory, and mild respiratory distress. pt given albuterol/atrovent and dexamethasone, continued wheezing. pt given xopenex and magnesium and wheezing improved. pt states that she has a refill of her dulera. states that she needs a refill of her neb tx and inhaler. pt also placed on steroids for 1 week. advised pt to please use medication as prescribed. Follow up with a primary care doctor in the next 2-3 days. Avoid asthma triggers. return to the emergency room for any new or worsening symptoms. Critical care attestation.: If time is entered above; I have spent that time in minutes in the direct care of this critically ill patient, excluding procedure time. ED Disposition Clinical Impression: Asthma exacerbation Qualifiers: Asthma severity: unspecified severity Asthma persistence: unspecified Qualified Code(s): J45.901 - Unspecified asthma with (acute) exacerbation Disposition: - TO HOME OR SELFCARE Is pt being admited?: No Does the pt Need Aspirin: No Condition: Stable Instructions: Asthma (ED) Additional Instructions: Please use medication as prescribed. Follow up with a primary care doctor in the next 2-3 days. Avoid asthma triggers. return to the emergency room for any new or worsening symptoms. Prescriptions: predniSONE [Deltasone] 40 mg PO QDAY 7 Days #14 tablet ALBUTEROL Inhaler (OR & NICU) [ProAir HFA Inhaler] 2 puff IH Q4HR PRN #1 inhalation PRN Reason: Shortness Of Breath ALBUTEROL NEB's [Proventil 0.083% NEBS] 2.5 mg IH TID PRN #1 box PRN Reason: Wheezing Referrals: ELIAS SERRANO MD [Primary Care Provider] - 2-3 Days Time of Disposition: 22:42 Print Language: SLOVENIAN
[2019-03-27] MEDS ORDERED: MAGNESIUM SULFATE 1 GM in NACL 0.9% 50 ML IV ONE (21:14)
[2019-03-27] MEDS ORDERED: XOPENEX IH ONE (21:14)
[2019-03-27] MEDS ORDERED: MAGNESIUM SULFATE 2GM/50ML 2 GM/50 ML BAG IV ONE (21:48)
[2019-03-27 23:05] VITALS: BP 127/71
== END 2019-03-27 23:03 | disposition home or self-care (01) ==
LOC: ED 18:23
DX: J45.901 Unspecified asthma with (acute) exacerbation (principal); J18.9 Pneumonia, unspecified organism; Z98.890 Other specified postprocedural states; Z87.891 Personal history of nicotine dependence; Z79.899 Other long term (current) drug therapy
CPT/HCPCS: 94644; 96365; 96375; 99283; J1100; J3475

== ENCOUNTER 2019-05-10 18:10 | Emergency (ER) | payer SELFPAY ==
[2019-05-10] MEDS ORDERED: NACL 0.9% 1000 ML 1,000 ML IV ONE (18:17)
[2019-05-10] MEDS ORDERED: SOLU-Medrol IV ONE (18:17)
[2019-05-10] MEDS ORDERED: DUONEB *Not for PRN Use IH ONE ×2 (18:17→18:21)
[2019-05-10] MEDS ORDERED: NACL 0.9% 1000 ML 1,000 ML ONE (18:21)
[2019-05-10] MEDS ORDERED: SOLU-Medrol ONE (18:21)
[2019-05-10] MEDS ORDERED: LEVAQUIN PO ONE (18:40)
[2019-05-10 18:53] LABS: Basophils # (Auto) 0.2 K/mm3 (0.0-0.1); Basophils % (Auto) 1.9 % (0.0-1.8); Eosinophils # (Auto) 0.7 K/mm3 (0.0-0.4); Eosinophils % (Auto) 7.2 % (0.0-4.3); Hematocrit 40.3 % (30.3-42.9); Hemoglobin 13.5 gm/dl (10.1-14.3); Lymphocytes % (Auto) 41.5 % (13.4-35.0); Mean Corpuscular HGB Conc 34 % (30-34); Mean Corpuscular Volume 98 fl (79-97); Monocytes # (Auto) 0.7 K/mm3 (0.0-0.8); Monocytes % (Auto) 7.2 % (0.0-7.3); Platelet Count 421 K/mm3 (140-440); Red Blood Count 4.14 M/mm3 (3.65-5.03); Red Cell Distribution Width 13.6 % (13.2-15.2)
--- NOTE | 2019-05-10 19:06 | Emergency Department Report ---
ED Asthma HPI - General Chief Complaint: Adult Asthma Stated Complaint: ASTHMA ATTACK Time Seen by Provider: 05/10/19 18:31 Source: patient Mode of arrival: Ambulatory Limitations: No Limitations - History of Present Illness Initial Comments: Ms. Padilla is a very pleasant 34-year-old female with history of asthma diagnosed 2 years ago. She is followed by simulation specialist Dr. Villanueva at [facility]. She also has a history of tobacco abuse. She developed wheezing shortness of breath while walking to the grocery store today. She came immediately to the emergency department. No history of intubations. She does have several hospitalizations and ED visits for asthma. Last hospitalized one month ago at [facility]. Hx of TMJ syndrome s/p surgery. MD Complaint: "asthma attack", shortness of breath, wheezing -: Sudden, This afternoon Asthma History: adult onset, history of frequent attac, history of prior ED visit, followed by specialist Severity: moderate Context: none known Associated Symptoms: dry cough - Related Data Previous Rx's Medication Instructions Recorded Last Taken Type Fluticasone/Salmeterol [Advair 1 each IH BID #1 blst.w.dev 02/09/18 04/08/18 10:00 Rx 100-50 Diskus] predniSONE [Deltasone] 50 mg PO QDAY #5 tab 04/12/18 Unknown Rx Azithromycin [Zithromax TAB] 250 mg PO QDAY #4 tablet 09/26/18 Unknown Rx Benzonatate [Tessalon Perles] 100 mg PO Q8HR PRN #20 capsule 09/26/18 Unknown Rx Guaifenesin/Pseudoephedrne HCl 1 tab PO BID PRN #20 tab 09/26/18 Unknown Rx [Mucinex D ER 1,200-120 mg Tab] ALBUTEROL Inhaler (OR & NICU) 2 puff IH QID PRN #1 inhalation 03/12/19 Unknown Rx [ProAir HFA Inhaler] Azithromycin [Zithromax] 500 mg PO QDAY #5 tablet 03/12/19 Unknown Rx Montelukast [Singulair] 10 mg PO QPM #14 tablet 03/12/19 Unknown Rx guaiFENesin/CODEINE [Robitussin AC] 5 ml PO Q6H PRN #120 ml 03/12/19 Unknown Rx predniSONE [Deltasone] 50 mg PO QDAY #5 tab 03/12/19 Unknown Rx ALBUTEROL Inhaler (OR & NICU) 2 puff IH Q4HR PRN #1 inhalation 03/27/19 Unknown Rx [ProAir HFA Inhaler] ALBUTEROL NEB's [Proventil 0.083% 2.5 mg IH TID PRN #1 box 03/27/19 Unknown Rx NEBS] predniSONE [Deltasone] 40 mg PO QDAY 7 Days #14 tablet 03/27/19 Unknown Rx Prednisone [predniSONE 10 mg 10 mg PO .TAPER #1 tab.ds.pk 05/10/19 Unknown Rx (6-Day Pack, 21 Tabs)] levoFLOXacin [Levaquin TAB] 500 mg PO QDAY 7 Days #7 tablet 05/10/19 Unknown Rx Allergies Allergy/AdvReac Type Severity Reaction Status Date / Time No Known Allergies Allergy Verified 09/26/18 17:17 ED Review of Systems ROS: Stated complaint: ASTHMA ATTACK Other details as noted in HPI Comment: All other systems reviewed and negative Constitutional: denies: fever, malaise Respiratory: cough, shortness of breath, wheezing Cardiovascular: denies: chest pain Gastrointestinal: denies: abdominal pain, nausea, vomiting ED Past Medical Hx - Past Medical History Previous Medical History?: Yes Hx Asthma: Yes Additional medical history: Chronic TMJ, pneumonia - Surgical History Past Surgical History?: Yes Additional Surgical History: Left TMJ surgery - Social History Smoking Status: Former Smoker Substance Use Type: Prescribed - Medications Home Medications: Home Medications Medication Instructions Recorded Confirmed Last Taken Type Fluticasone/Salmeterol [Advair 1 each IH BID #1 blst.w.dev 02/09/18 04/11/18 10:00 Rx 100-50 Diskus] predniSONE [Deltasone] 50 mg PO QDAY #5 tab 04/12/18 Unknown Rx Azithromycin [Zithromax TAB] 250 mg PO QDAY #4 tablet 09/26/18 Unknown Rx Benzonatate [Tessalon Perles] 100 mg PO Q8HR PRN #20 capsule 09/26/18 Unknown Rx Guaifenesin/Pseudoephedrne HCl 1 tab PO BID PRN #20 tab 09/26/18 Unknown Rx [Mucinex D ER 1,200-120 mg Tab] ALBUTEROL Inhaler (OR & NICU) 2 puff IH QID PRN #1 inhalation 03/12/19 Unknown Rx [ProAir HFA Inhaler] Azithromycin [Zithromax] 500 mg PO QDAY #5 tablet 03/12/19 Unknown Rx Montelukast [Singulair] 10 mg PO QPM #14 tablet 03/12/19 Unknown Rx guaiFENesin/CODEINE [Robitussin AC] 5 ml PO Q6H PRN #120 ml 03/12/19 Unknown Rx predniSONE [Deltasone] 50 mg PO QDAY #5 tab 03/12/19 Unknown Rx ALBUTEROL Inhaler (OR & NICU) 2 puff IH Q4HR PRN #1 inhalation 03/27/19 Unknown Rx [ProAir HFA Inhaler] ALBUTEROL NEB's [Proventil 0.083% 2.5 mg IH TID PRN #1 box 03/27/19 Unknown Rx NEBS] predniSONE [Deltasone] 40 mg PO QDAY 7 Days #14 tablet 03/27/19 Unknown Rx Prednisone [predniSONE 10 mg 10 mg PO .TAPER #1 tab.ds.pk 05/10/19 Unknown Rx (6-Day Pack, 21 Tabs)] levoFLOXacin [Levaquin TAB] 500 mg PO QDAY 7 Days #7 tablet 05/10/19 Unknown Rx ED Physical Exam - General Limitations: No Limitations General appearance: alert, in no apparent distress, other (speaking full word sentences mild work of breathing appears calm and comfortable) - Head Head exam: Present: atraumatic, normocephalic - Eye Eye exam: Present: normal appearance - ENT ENT exam: Present: mucous membranes moist - Neck Neck exam: Present: normal inspection, full ROM - Respiratory Respiratory exam: Present: wheezes, prolonged expiratory. Absent: rales, rhonchi, accessory muscle use - Cardiovascular Cardiovascular Exam: Present: regular rate, normal rhythm, normal heart sounds. Absent: systolic murmur, diastolic murmur, rubs, gallop - GI/Abdominal GI/Abdominal exam: Present: soft, normal bowel sounds. Absent: distended, tenderness - Extremities Exam Extremities exam: Present: normal inspection - Back Exam Back exam: Present: normal inspection - Neurological Exam Neurological exam: Present: alert, oriented X3 - Psychiatric Psychiatric exam: Present: normal affect, normal mood - Skin Skin exam: Present: warm, dry, intact, normal color. Absent: rash ED Course Vital Signs 05/10/19 05/10/19 18:17 19:57 Pulse Rate [ 95 H Throughout] Respiratory 23 Rate Respiratory 20 Rate [ Throughout] - Reevaluation(s) Reevaluation #1: 05/10/19 19:46 Ms. Padilla feels better after initial treatment. She requests another nebulizer treatment. On exam, improved air movement with expiratory wheezes no ronchi no stridor ED Medical Decision Making - Lab Data Result diagrams: 05/10/19 Unknown 05/10/19 Unknown - Radiology Data Radiology results: report reviewed CXR: NAP according to radiology report - Medical Decision Making Mrs. Padilla presents with acute asthma exacerbation. Improved with nebs, abx and steroids. She is ambulatory without difficulty Improved air movement on auscultation prior to discharge. Strongly encouraged f/u with her personal simulation specialist Dr. Villanueva Critical care attestation.: If time is entered above; I have spent that time in minutes in the direct care of this critically ill patient, excluding procedure time. ED Disposition Clinical Impression: Acute asthma exacerbation Disposition: DC-01 TO HOME OR SELFCARE Is pt being admited?: No Does the pt Need Aspirin: No Condition: Stable Instructions: Asthma (ED), How to Stop Smoking (ED) Additional Instructions: Please contact your personal simulation specialist Dr. Villanueva this week. Prescriptions: levoFLOXacin [Levaquin TAB] 500 mg PO QDAY 7 Days #7 tablet Prednisone [predniSONE 10 mg (6-Day Pack, 21 Tabs)] 10 mg PO .TAPER #1 tab.ds.pk Forms: Work/School Release Form(ED)
--- NOTE | 2019-05-10 19:15 | XRay Report ---
CHEST 2 VIEWS INDICATION: Asthma. COMPARISON: 03/12/2019. FINDINGS: Support devices: None. Heart: Within normal limits. Lungs/Pleura: No acute air space or interstitial disease. No significant pleural effusion. IMPRESSION: No acute findings. Signer Name: Michele Cassidy MD Signed: 05/10/2019 7:11 PM Workstation Name: [id number]
[2019-05-10 19:20] LABS: Alanine Aminotransferase 21 units/L (7-56); Albumin 4.4 g/dL (3.9-5); BUN/Creatinine Ratio 14; Blood Urea Nitrogen 10 mg/dL (7-17); Calcium 9.4 mg/dL (8.4-10.2); Hemolysis Index 11
[2019-05-10] MEDS ORDERED: ATROVENT IH ONE (19:45)
[2019-05-10] MEDS ORDERED: PROVENTIL IH ONE (19:45)
[2019-05-11 00:52] VITALS: BP 119/71
== END 2019-05-10 23:15 | disposition home or self-care (01) ==
LOC: ED 18:10
DX: J45.901 Unspecified asthma with (acute) exacerbation (principal); M26.69 Other specified disorders of temporomandibular joint; J18.9 Pneumonia, unspecified organism; Z87.891 Personal history of nicotine dependence; Z79.899 Other long term (current) drug therapy
CPT/HCPCS: 36415; 71046; 80053; 85025; 94640; 96374; 99284; J2930; J7030; 94644

== ENCOUNTER 2019-05-24 13:45 | Emergency (ER) | payer SELFPAY ==
[2019-05-24] MEDS ORDERED: IPRATROPIUM/ALBUTEROL SULFATE 3 ML AMPUL.NEB IH ONE ×2 (15:15→15:18)
[2019-05-24] MEDS ORDERED: ALBUTEROL 2.5 MG/3 ML NEBU IH ONE (15:32)
[2019-05-24] MEDS ORDERED: MAGNESIUM SULFATE 2 GM/50 ML BAG IV ONE (15:33)
[2019-05-24] MEDS ORDERED: SODIUM CHLORIDE 0.9% 1000 ML 1,000 ML IV ONE (15:33)
[2019-05-24] MEDS ORDERED: IPRATROPIUM 0.02% NEBU 2.5 ML IH ONE (15:33)
[2019-05-24] MEDS ORDERED: methylPREDNISolone Sod Succinate 125 MG/2 ML INJ IV ONE (15:33)
[2019-05-24 15:58] LABS: Basophils # (Auto) 0.2 K/mm3 (0.0-0.1); Basophils % (Auto) 1.4 % (0.0-1.8); Eosinophils % (Auto) 7.3 % (0.0-4.3); Hematocrit 42.6 % (30.3-42.9); Hemoglobin 13.9 gm/dl (10.1-14.3); Lymphocytes # (Auto) 3.6 K/mm3 (1.2-5.4); Lymphocytes % (Auto) 26.2 % (13.4-35.0); Mean Corpuscular HGB Conc 33 % (30-34); Mean Corpuscular Volume 98 fl (79-97); Monocytes # (Auto) 0.9 K/mm3 (0.0-0.8); Monocytes % (Auto) 6.3 % (0.0-7.3); Platelet Count 362 K/mm3 (140-440); Red Blood Count 4.34 M/mm3 (3.65-5.03); Red Cell Distribution Width 13.5 % (13.2-15.2)
[2019-05-24 16:23] LABS: BUN/Creatinine Ratio 13; Blood Urea Nitrogen 9 mg/dL (7-17); Calcium 9.5 mg/dL (8.4-10.2); Hemolysis Index 9
[2019-05-24] MEDS ORDERED: guaiFENesin/CODEINE 100-10MG ORAL LIQD 5 ML PO ONE (16:48)
[2019-05-24] MEDS ORDERED: IBUPROFEN 800 MG TAB PO ONE (16:48)
--- NOTE | 2019-05-24 16:53 | Emergency Department Report ---
<FLAKO CONNER - Last Filed: 05/24/19 16:49> ED General Adult HPI - General Chief complaint: Adult Asthma Stated complaint: CHEST TIGHT/ASTHMA ATTACK Time Seen by Provider: 05/24/19 14:49 Source: patient Mode of arrival: Ambulatory Limitations: No Limitations - History of Present Illness Initial comments: The patient presents to the emergency department with a chief complaint of an asthma attack. Patient states her last couple days she is dispensed difficulty breathing and is consistent with her prior exacerbations of asthma. Patient states she's had no relief to home with Mucinex, albuterol nebulizer treatments, and Mucinex. She states that she has had a slight amount of coughing that has resulted in her having chest pain with cough only. She denies fever at home. -: Gradual Severity scale (0 -10): 2 Quality: aching Consistency: intermittent Improves with: rest Worsens with: other (coughing) Associated Symptoms: denies other symptoms Treatments Prior to Arrival: none - Related Data Previous Rx's Medication Instructions Recorded Last Taken Type Fluticasone/Salmeterol [Advair 1 each IH BID #1 blst.w.dev 02/09/18 04/08/18 10:00 Rx 100-50 Diskus] predniSONE [Deltasone] 50 mg PO QDAY #5 tab 04/12/18 Unknown Rx Azithromycin [Zithromax TAB] 250 mg PO QDAY #4 tablet 09/26/18 Unknown Rx Benzonatate [Tessalon Perles] 100 mg PO Q8HR PRN #20 capsule 09/26/18 Unknown Rx Guaifenesin/Pseudoephedrne HCl 1 tab PO BID PRN #20 tab 09/26/18 Unknown Rx [Mucinex D ER 1,200-120 mg Tab] ALBUTEROL Inhaler (OR & NICU) 2 puff IH QID PRN #1 inhalation 03/12/19 Unknown Rx [ProAir HFA Inhaler] Azithromycin [Zithromax] 500 mg PO QDAY #5 tablet 03/12/19 Unknown Rx Montelukast [Singulair] 10 mg PO QPM #14 tablet 03/12/19 Unknown Rx guaiFENesin/CODEINE [Robitussin AC] 5 ml PO Q6H PRN #120 ml 03/12/19 Unknown Rx predniSONE [Deltasone] 50 mg PO QDAY #5 tab 03/12/19 Unknown Rx ALBUTEROL Inhaler (OR & NICU) 2 puff IH Q4HR PRN #1 inhalation 03/27/19 Unknown Rx [ProAir HFA Inhaler] ALBUTEROL NEB's [Proventil 0.083% 2.5 mg IH TID PRN #1 box 03/27/19 Unknown Rx NEBS] predniSONE [Deltasone] 40 mg PO QDAY 7 Days #14 tablet 03/27/19 Unknown Rx Prednisone [predniSONE 10 mg 10 mg PO .TAPER #1 tab.ds.pk 05/10/19 Unknown Rx (6-Day Pack, 21 Tabs)] levoFLOXacin [Levaquin TAB] 500 mg PO QDAY 7 Days #7 tablet 05/10/19 Unknown Rx ALBUTEROL Inhaler (OR & NICU) 2 puff IH Q4HR PRN #1 inhalation 05/24/19 Unknown Rx [ProAir HFA Inhaler] Albuterol Sulfate [Albuterol 0.63% 0.63 mg IH Q4HR PRN #30 ml 05/24/19 Unknown Rx NEBS] Azithromycin [Zithromax Z-ZECHARIAH] 250 mg PO DAILY #6 tablet 05/24/19 Unknown Rx Cetirizine HCl [Zyrtec 10mg tab] 10 mg PO DAILY #30 tablet 05/24/19 Unknown Rx Codeine Phosphate/Guaifenesin 180 ml PO Q12HR PRN #180 liquid 05/24/19 Unknown Rx [Guaifenesin-Codeine Syrup] Ibuprofen [Motrin] 800 mg PO Q8HR PRN #30 tablet 05/24/19 Unknown Rx predniSONE [Deltasone] 20 mg PO DAILY #15 tablet 05/24/19 Unknown Rx Allergies Allergy/AdvReac Type Severity Reaction Status Date / Time No Known Allergies Allergy Verified 09/26/18 17:17 ED Review of Systems Comment: All other systems reviewed and negative Constitutional: denies: chills, fever Eyes: denies: eye pain, eye discharge, vision change ENT: denies: ear pain, throat pain Respiratory: shortness of breath, wheezing. denies: cough Cardiovascular: denies: chest pain, palpitations Endocrine: no symptoms reported Gastrointestinal: denies: abdominal pain, nausea, diarrhea Genitourinary: denies: urgency, dysuria, discharge Musculoskeletal: denies: back pain, joint swelling, arthralgia Skin: denies: rash, lesions Neurological: denies: headache, weakness, paresthesias Psychiatric: denies: anxiety, depression Hematological/Lymphatic: denies: easy bleeding, easy bruising ED Past Medical Hx - Past Medical History Previous Medical History?: Yes Hx Asthma: Yes Additional medical history: Chronic TMJ, pneumonia - Surgical History Past Surgical History?: Yes Additional Surgical History: Left TMJ surgery - Social History Smoking Status: Never Smoker Substance Use Type: None - Medications Home Medications: Home Medications Medication Instructions Recorded Confirmed Last Taken Type Fluticasone/Salmeterol [Advair 1 each IH BID #1 blst.w.dev 02/09/18 04/11/18 04/08/18 10:00 Rx 100-50 Diskus] predniSONE [Deltasone] 50 mg PO QDAY #5 tab 04/12/18 Unknown Rx Azithromycin [Zithromax TAB] 250 mg PO QDAY #4 tablet 09/26/18 Unknown Rx Benzonatate [Tessalon Perles] 100 mg PO Q8HR PRN #20 capsule 09/26/18 Unknown Rx Guaifenesin/Pseudoephedrne HCl 1 tab PO BID PRN #20 tab 09/26/18 Unknown Rx [Mucinex D ER 1,200-120 mg Tab] ALBUTEROL Inhaler (OR & NICU) 2 puff IH QID PRN #1 inhalation 03/12/19 Unknown Rx [ProAir HFA Inhaler] Azithromycin [Zithromax] 500 mg PO QDAY #5 tablet 03/12/19 Unknown Rx Montelukast [Singulair] 10 mg PO QPM #14 tablet 03/12/19 Unknown Rx guaiFENesin/CODEINE [Robitussin AC] 5 ml PO Q6H PRN #120 ml 03/12/19 Unknown Rx predniSONE [Deltasone] 50 mg PO QDAY #5 tab 03/12/19 Unknown Rx ALBUTEROL Inhaler (OR & NICU) 2 puff IH Q4HR PRN #1 inhalation 03/27/19 Unknown Rx [ProAir HFA Inhaler] ALBUTEROL NEB's [Proventil 0.083% 2.5 mg IH TID PRN #1 box 03/27/19 Unknown Rx NEBS] predniSONE [Deltasone] 40 mg PO QDAY 7 Days #14 tablet 03/27/19 Unknown Rx Prednisone [predniSONE 10 mg 10 mg PO .TAPER #1 tab.ds.pk 05/10/19 Unknown Rx (6-Day Pack, 21 Tabs)] levoFLOXacin [Levaquin TAB] 500 mg PO QDAY 7 Days #7 tablet 05/10/19 Unknown Rx ALBUTEROL Inhaler (OR & NICU) 2 puff IH Q4HR PRN #1 inhalation 05/24/19 Unknown Rx [ProAir HFA Inhaler] Albuterol Sulfate [Albuterol 0.63% 0.63 mg IH Q4HR PRN #30 ml 05/24/19 Unknown Rx NEBS] Azithromycin [Zithromax Z-ZECHARIAH] 250 mg PO DAILY #6 tablet 05/24/19 Unknown Rx Cetirizine HCl [Zyrtec 10mg tab] 10 mg PO DAILY #30 tablet 05/24/19 Unknown Rx Codeine Phosphate/Guaifenesin 180 ml PO Q12HR PRN #180 liquid 05/24/19 Unknown Rx [Guaifenesin-Codeine Syrup] Ibuprofen [Motrin] 800 mg PO Q8HR PRN #30 tablet 05/24/19 Unknown Rx predniSONE [Deltasone] 20 mg PO DAILY #15 tablet 05/24/19 Unknown Rx ED Physical Exam - General Limitations: No Limitations General appearance: alert, in no apparent distress - Head Head exam: Present: atraumatic, normocephalic - Eye Eye exam: Present: normal appearance, PERRL, EOMI - ENT ENT exam: Present: mucous membranes moist - Neck Neck exam: Present: normal inspection - Respiratory Respiratory exam: Present: wheezes. Absent: respiratory distress, rales - Cardiovascular Cardiovascular Exam: Present: normal rhythm, tachycardia. Absent: systolic murmur, diastolic murmur, rubs, gallop - GI/Abdominal GI/Abdominal exam: Present: soft, normal bowel sounds. Absent: distended, tenderness - Extremities Exam Extremities exam: Present: normal inspection - Back Exam Back exam: Present: normal inspection - Neurological Exam Neurological exam: Present: alert, oriented X3, CN II-XII intact. Absent: motor sensory deficit - Psychiatric Psychiatric exam: Present: normal affect, normal mood - Skin Skin exam: Present: warm, dry, intact, normal color. Absent: rash ED Medical Decision Making - Lab Data Result diagrams: 05/24/19 15:45 05/24/19 15:45 Lab Results 05/24/19 05/24/19 Range/Units 15:45 15:45 WBC 13.8 H (4.5-11.0) K/mm3 RBC 4.34 (3.65-5.03) M/mm3 Hgb 13.9 (10.1-14.3) gm/dl Hct 42.6 (30.3-42.9) % MCV 98 H (79-97) fl MCH 32 (28-32) pg MCHC 33 (30-34) % RDW 13.5 (13.2-15.2) % Plt Count 362 (140-440) K/mm3 Lymph % (Auto) 26.2 (13.4-35.0) % Geary % (Auto) 6.3 (0.0-7.3) % Eos % (Auto) 7.3 H (0.0-4.3) % Baso % (Auto) 1.4 (0.0-1.8) % Lymph # 3.6 (1.2-5.4) K/mm3 Geary # 0.9 H (0.0-0.8) K/mm3 Eos # 1.0 H (0.0-0.4) K/mm3 Baso # 0.2 H (0.0-0.1) K/mm3 Seg Neutrophils % 58.8 (40.0-70.0) % Seg Neutrophils # 8.1 H (1.8-7.7) K/mm3 Sodium 141 (137-145) mmol/L Potassium 3.9 (3.6-5.0) mmol/L Chloride 100.5 (98-107) mmol/L Carbon Dioxide 26 (22-30) mmol/L Anion Gap 18 mmol/L BUN 9 (7-17) mg/dL Creatinine 0.7 (0.7-1.2) mg/dL Estimated GFR > 60 ml/min BUN/Creatinine Ratio 13 % Glucose 109 H (65-100) mg/dL Calcium 9.5 (8.4-10.2) mg/dL - Radiology Data White count likely secondary to increased albuterol use at home and acute stress reaction Patient received 2 DuoNeb treatments followed by hour-long breathing treatment with albuterol and Atrovent History see IV Solu-Medrol and IV magnesium Patient will be reevaluated after her hour-long breathing treatment for discharge Critical Care Time: Yes Critical care time in (mins) excluding proc time.: 45 ED Disposition Clinical Impression: Asthma exacerbation Disposition: DC-01 TO HOME OR SELFCARE Is pt being admited?: No Does the pt Need Aspirin: No Condition: Stable Instructions: Asthma (ED) Additional Instructions: return if worse Prescriptions: Albuterol Sulfate [Albuterol 0.63% NEBS] 0.63 mg IH Q4HR PRN #30 ml PRN Reason: Wheezing predniSONE [Deltasone] 20 mg PO DAILY #15 tablet Codeine Phosphate/Guaifenesin [Guaifenesin-Codeine Syrup] 180 ml PO Q12HR PRN #180 liquid PRN Reason: pain Ibuprofen [Motrin] 800 mg PO Q8HR PRN #30 tablet PRN Reason: Pain ALBUTEROL Inhaler (OR & NICU) [ProAir HFA Inhaler] 2 puff IH Q4HR PRN #1 inhalation PRN Reason: Shortness Of Breath Azithromycin [Zithromax Z-ZECHARIAH] 250 mg PO DAILY #6 tablet Cetirizine HCl [Zyrtec 10mg tab] 10 mg PO DAILY #30 tablet Referrals: PRIMARY CARE,MD [Primary Care Provider] - 3-5 Days [facility] [Provider Group] - 3-5 Days [facility] [Provider Group] - 3-5 Days Forms: Work/School Release Form(ED) Time of Disposition: 16:51 <SAI SOLORIO - Last Filed: 05/24/19 18:11> ED Review of Systems ROS: Stated complaint: CHEST TIGHT/ASTHMA ATTACK Other details as noted in HPI ED Course Vital Signs 05/24/19 05/24/19 05/24/19 13:54 16:00 17:00 Temperature 98.4 F Pulse Rate 105 H Pulse Rate [ 94 H 128 H Posterior Bilateral Throughout] Respiratory 18 Rate Respiratory 22 22 Rate [Posterior Bilateral Throughout] Blood Pressure 142/80 O2 Sat by Pulse 95 Oximetry ED Medical Decision Making - Lab Data Result diagrams: 05/24/19 15:45 05/24/19 15:45 - Medical Decision Making 34-year-old female presents with asthma exacerbation ED course: Patient received a breathing treatment, prednisone, in the ED. Patient had no respiratory distress in the ED. Post treatment evaluation: Mild wheezing heard, no use of accessory muscles, I discussed with the patient to follow up with her primary care physician. I discussed with the patient will be going home on with albuterol inhaler as well as nebulizer Vital signs are normalized, she reports feeling much better upon reevaluation I discussed with the patient is symptoms worsen to return to ED immediately. Critical care attestation.: If time is entered above; I have spent that time in minutes in the direct care of this critically ill patient, excluding procedure time. ED Disposition Is pt being admited?: No Does the pt Need Aspirin: No Time of Disposition: 18:03
[2019-05-24 18:23] VITALS: BP 140/80
== END 2019-05-24 18:22 | disposition home or self-care (01) ==
LOC: ED 13:45
DX: J45.901 Unspecified asthma with (acute) exacerbation (principal); Z79.899 Other long term (current) drug therapy; Z98.890 Other specified postprocedural states
CPT/HCPCS: 36415; 80048; 85025; 94644; 96365; 96375; 99284; J2930; J3475; J7030

== ENCOUNTER 2019-06-26 16:15 | Emergency (ER) | payer SELFPAY ==
[2019-06-26] MEDS ORDERED: predniSONE 20 MG TAB PO ONE (16:22)
[2019-06-26] MEDS ORDERED: IPRATROPIUM/ALBUTEROL SULFATE 3 ML AMPUL.NEB IH ONE (16:22)
--- NOTE | 2019-06-26 16:24 | Event Note ---
ED Screening Note Date of service: 06/26/19 Time: 16:21 ED Screening Note: This is a 34 y.o. F. that presents to the ER with wheezing and cough for 1 days. Using inhaler and neb treatment w/o relief. Patient states she started out with URI 2-3 days. This initial assessment/diagnostic orders/clinical plan/treatment(s) is/are subject to change based on patients health status, clinical progression and re- assessment by fellow clinical providers in the ED. Further treatment and workup at subsequent clinical providers discretion. Patient/guardian urged not to elope from the ED as their condition may be serious if not clinically assessed and managed. Initial orders include: CXR Duoneb Prednisone
[2019-06-26] MEDS ORDERED: MAGNESIUM SULFATE 2 GM/50 ML BAG IV ONE ×2 (16:51→16:52)
[2019-06-26] MEDS ORDERED: dexAMETHasone 20 MG/5 ML VIAL IV ONE (16:51)
[2019-06-26] MEDS ORDERED: dexAMETHasone 20 MG/5 ML VIAL ONE (16:52)
--- NOTE | 2019-06-26 16:58 | Emergency Department Report ---
ED Shortness of Breath HPI - General Chief Complaint: Dyspnea/Respdistress Stated Complaint: ASTHMA Time Seen by Provider: 06/26/19 16:20 Source: patient Mode of arrival: Ambulatory Limitations: No Limitations - History of Present Illness Initial Comments: 34-year-old -Maced[place] female presents to the emergency room complaining of difficulty breathing. Patient states that she has been using her nebulizer treatment without much resolution of her symptoms. Patient does admit to having URI symptoms a week ago. Patient denies any fevers chills nausea no vomiting. Patient denies being intubated but has had admissions to the hospital for asthma. MD Complaint: shortness of breath Onset/Timin -: days(s) Pain Scale: 0 Consistency: constant Improves With: nothing Worsens With: coughing Known History Of: asthma Context: recent URI Associated Symptoms: denies other symptoms Treatments Prior to Arrival: bronchodilator - Related Data Home Oxygen Therapy: No Previous Rx's Medication Instructions Recorded Last Taken Type Fluticasone/Salmeterol [Advair 1 each IH BID #1 blst.w.dev 02/09/18 04/08/18 10:00 Rx 100-50 Diskus] predniSONE [Deltasone] 50 mg PO QDAY #5 tab 04/12/18 Unknown Rx Azithromycin [Zithromax TAB] 250 mg PO QDAY #4 tablet 09/26/18 Unknown Rx Benzonatate [Tessalon Perles] 100 mg PO Q8HR PRN #20 capsule 09/26/18 Unknown Rx Guaifenesin/Pseudoephedrne HCl 1 tab PO BID PRN #20 tab 09/26/18 Unknown Rx [Mucinex D ER 1,200-120 mg Tab] ALBUTEROL Inhaler (OR & NICU) 2 puff IH QID PRN #1 inhalation 03/12/19 Unknown Rx [ProAir HFA Inhaler] Azithromycin [Zithromax] 500 mg PO QDAY #5 tablet 03/12/19 Unknown Rx Montelukast [Singulair] 10 mg PO QPM #14 tablet 03/12/19 Unknown Rx guaiFENesin/CODEINE [Robitussin AC] 5 ml PO Q6H PRN #120 ml 03/12/19 Unknown Rx predniSONE [Deltasone] 50 mg PO QDAY #5 tab 03/12/19 Unknown Rx ALBUTEROL Inhaler (OR & NICU) 2 puff IH Q4HR PRN #1 inhalation 03/27/19 Unknown Rx [ProAir HFA Inhaler] predniSONE [Deltasone] 40 mg PO QDAY 7 Days #14 tablet 03/27/19 Unknown Rx Prednisone [predniSONE 10 mg 10 mg PO .TAPER #1 tab.ds.pk 05/10/19 Unknown Rx (6-Day Pack, 21 Tabs)] levoFLOXacin [Levaquin TAB] 500 mg PO QDAY 7 Days #7 tablet 05/10/19 Unknown Rx ALBUTEROL Inhaler (OR & NICU) 2 puff IH Q4HR PRN #1 inhalation 05/24/19 Unknown Rx [ProAir HFA Inhaler] Albuterol Sulfate [Albuterol 0.63% 0.63 mg IH Q4HR PRN #30 ml 05/24/19 Unknown Rx NEBS] Azithromycin [Zithromax Z-ZECHARIAH] 250 mg PO DAILY #6 tablet 05/24/19 Unknown Rx Cetirizine HCl [Zyrtec 10mg tab] 10 mg PO DAILY #30 tablet 05/24/19 Unknown Rx Codeine Phosphate/Guaifenesin 180 ml PO Q12HR PRN #180 liquid 05/24/19 Unknown Rx [Guaifenesin-Codeine Syrup] Ibuprofen [Motrin] 800 mg PO Q8HR PRN #30 tablet 05/24/19 Unknown Rx predniSONE [Deltasone] 20 mg PO DAILY #15 tablet 05/24/19 Unknown Rx ALBUTEROL NEB's [Proventil 0.083% 2.5 mg IH TID PRN #1 box 06/26/19 Unknown Rx NEBS] predniSONE [Deltasone] 20 mg PO QDAY 5 Days #5 tab 06/26/19 Unknown Rx Allergies Allergy/AdvReac Type Severity Reaction Status Date / Time No Known Allergies Allergy Verified 09/26/18 17:17 ED Review of Systems ROS: Stated complaint: ASTHMA Other details as noted in HPI Comment: All other systems reviewed and negative ED Past Medical Hx - Past Medical History Hx Asthma: Yes Additional medical history: Chronic TMJ, pneumonia - Surgical History Past Surgical History?: Yes Additional Surgical History: Left TMJ surgery - Social History Smoking Status: Never Smoker Substance Use Type: None - Medications Home Medications: Home Medications Medication Instructions Recorded Confirmed Last Taken Type Fluticasone/Salmeterol [Advair 1 each IH BID #1 blst.w.dev 02/09/18 04/11/18 04/08/18 10:00 Rx 100-50 Diskus] predniSONE [Deltasone] 50 mg PO QDAY #5 tab 04/12/18 Unknown Rx Azithromycin [Zithromax TAB] 250 mg PO QDAY #4 tablet 09/26/18 Unknown Rx Benzonatate [Tessalon Perles] 100 mg PO Q8HR PRN #20 capsule 09/26/18 Unknown Rx Guaifenesin/Pseudoephedrne HCl 1 tab PO BID PRN #20 tab 09/26/18 Unknown Rx [Mucinex D ER 1,200-120 mg Tab] ALBUTEROL Inhaler (OR & NICU) 2 puff IH QID PRN #1 inhalation 03/12/19 Unknown Rx [ProAir HFA Inhaler] Azithromycin [Zithromax] 500 mg PO QDAY #5 tablet 03/12/19 Unknown Rx Montelukast [Singulair] 10 mg PO QPM #14 tablet 03/12/19 Unknown Rx guaiFENesin/CODEINE [Robitussin AC] 5 ml PO Q6H PRN #120 ml 03/12/19 Unknown Rx predniSONE [Deltasone] 50 mg PO QDAY #5 tab 03/12/19 Unknown Rx ALBUTEROL Inhaler (OR & NICU) 2 puff IH Q4HR PRN #1 inhalation 03/27/19 Unknown Rx [ProAir HFA Inhaler] predniSONE [Deltasone] 40 mg PO QDAY 7 Days #14 tablet 03/27/19 Unknown Rx Prednisone [predniSONE 10 mg 10 mg PO .TAPER #1 tab.ds.pk 05/10/19 Unknown Rx (6-Day Pack, 21 Tabs)] levoFLOXacin [Levaquin TAB] 500 mg PO QDAY 7 Days #7 tablet 05/10/19 Unknown Rx ALBUTEROL Inhaler (OR & NICU) 2 puff IH Q4HR PRN #1 inhalation 05/24/19 Unknown Rx [ProAir HFA Inhaler] Albuterol Sulfate [Albuterol 0.63% 0.63 mg IH Q4HR PRN #30 ml 05/24/19 Unknown Rx NEBS] Azithromycin [Zithromax Z-ZECHARIAH] 250 mg PO DAILY #6 tablet 05/24/19 Unknown Rx Cetirizine HCl [Zyrtec 10mg tab] 10 mg PO DAILY #30 tablet 05/24/19 Unknown Rx Codeine Phosphate/Guaifenesin 180 ml PO Q12HR PRN #180 liquid 05/24/19 Unknown Rx [Guaifenesin-Codeine Syrup] Ibuprofen [Motrin] 800 mg PO Q8HR PRN #30 tablet 05/24/19 Unknown Rx predniSONE [Deltasone] 20 mg PO DAILY #15 tablet 05/24/19 Unknown Rx ALBUTEROL NEB's [Proventil 0.083% 2.5 mg IH TID PRN #1 box 06/26/19 Unknown Rx NEBS] predniSONE [Deltasone] 20 mg PO QDAY 5 Days #5 tab 06/26/19 Unknown Rx ED Physical Exam - General Limitations: No Limitations General appearance: alert, in no apparent distress - Head Head exam: Present: atraumatic, normocephalic - Eye Eye exam: Present: normal appearance - ENT ENT exam: Present: mucous membranes moist - Respiratory Respiratory exam: Present: respiratory distress, accessory muscle use - Cardiovascular Cardiovascular Exam: Present: tachycardia - Extremities Exam Extremities exam: Present: normal inspection - Back Exam Back exam: Present: normal inspection - Neurological Exam Neurological exam: Present: alert, oriented X3, normal gait - Psychiatric Psychiatric exam: Present: normal affect, normal mood - Skin Skin exam: Present: warm, dry, intact, normal color. Absent: rash ED Course Vital Signs 06/26/19 06/26/19 06/26/19 16:17 16:20 16:46 Temperature 98.8 F Pulse Rate 102 H Respiratory 16 22 Rate Blood Pressure 131/87 O2 Sat by Pulse 96 100 96 Oximetry 06/26/19 06/26/19 17:00 17:15 Temperature Pulse Rate Respiratory Rate Blood Pressure 125/71 O2 Sat by Pulse 98 92 Oximetry ED Medical Decision Making - Radiology Data Radiology results: report reviewed Patient: HUONG KRAFT MR#: [id number] : 1985 Acct:[id number] Age/Sex: 34 / F ADM Date: 06/26/19 Loc: ED Attending Dr: Ordering Physician: JERRY GUZMAN Date of Service: 06/26/19 Procedure(s): XR chest routine 2V Accession Number(s): [id number] cc: ALEXANDRA WALLSJERRY POSADA Fluoro Time In Minutes: CHEST 2 VIEWS, 06/26/2019 4:41 PM INDICATION: Chest pain. Shortness of breath. Cough COMPARISON: Chest radiograph, 05/10/2019 FINDINGS: Support devices: None Heart: Heart size and pulmonary vascularity remain within normal limits. Lungs/pleura: The lungs are clear of focal airspace disease or significant pleural effusion. Additional findings: None IMPRESSION: 1. No evidence of acute cardiopulmonary process. Signer Name: Dora Rose MD Signed: 06/26/2019 4:59 PM Workstation Name: [id number] Transcribed By: EB Dictated By: Dora Rose MD Electronically Authenticated By: Dora Rose MD Signed Date/Time: 06/26/191658 DD/ 55 TD/TT: - Medical Decision Making 34-year-old -[place]aced[place] female presents to the emergency room complaining of difficulty breathing. Patient states that she has been using her nebulizer treatment without much resolution of her symptoms. Patient does admit to having URI symptoms a week ago. Patient denies any fevers chills nausea no vomiting. Patient denies being intubated but has had admissions to the hospital for asthma. Patient has been ordered 2 mg of IV, dexamethasone 10 mg IV, DuoNeb 3 inhalation. Chest x-ray is been ordered - Differential Diagnosis asthma, PE,CHF Critical care attestation.: If time is entered above; I have spent that time in minutes in the direct care of this critically ill patient, excluding procedure time. ED Disposition Clinical Impression: Asthma exacerbation Disposition: DC-01 TO HOME OR SELFCARE Is pt being admited?: No Does the pt Need Aspirin: No Condition: Stable Instructions: Asthma (ED) Prescriptions: predniSONE [Deltasone] 20 mg PO QDAY 5 Days #5 tab ALBUTEROL NEB's [Proventil 0.083% NEBS] 2.5 mg IH TID PRN #1 box PRN Reason: Wheezing Forms: Work/School Release Form(ED)
--- NOTE | 2019-06-26 17:04 | XRay Report ---
CHEST 2 VIEWS, 06/26/2019 4:41 PM INDICATION: Chest pain. Shortness of breath. Cough COMPARISON: Chest radiograph, 05/10/2019 FINDINGS: Support devices: None Heart: Heart size and pulmonary vascularity remain within normal limits. Lungs/pleura: The lungs are clear of focal airspace disease or significant pleural effusion. Additional findings: None IMPRESSION: 1. No evidence of acute cardiopulmonary process. Signer Name: Dora Rose MD Signed: 06/26/2019 4:59 PM Workstation Name: [id number]
[2019-06-26 17:23] VITALS: BP 125/71
== END 2019-06-26 20:36 | disposition home or self-care (01) ==
LOC: ED 16:15
DX: J45.901 Unspecified asthma with (acute) exacerbation (principal); Z98.890 Other specified postprocedural states; Z79.899 Other long term (current) drug therapy
CPT/HCPCS: 71046; J1100; J3475; 94640; 96365; 96375

== ENCOUNTER 2019-07-18 16:50 | Emergency (ER) | payer SELFPAY ==
[2019-07-18 17:18] VITALS: BP 135/89
[2019-07-18] MEDS ORDERED: ALBUTEROL 2.5 MG/3 ML NEBU IH ONE (17:21)
[2019-07-18] MEDS ORDERED: IPRATROPIUM 0.02% NEBU 2.5 ML IH ONE (17:21)
[2019-07-18] MEDS ORDERED: methylPREDNISolone Sod Succinate 125 MG/2 ML INJ IV ONE (17:21)
--- NOTE | 2019-07-18 17:21 | Event Note ---
ED Screening Note ED Screening Note: pt presents for asthma exacerbation states she used 4 breathing treatments at home +dry cough, +wheezing no fever This initial assessment/diagnostic orders/clinical plan/treatment(s) is/are subject to change based on patients health status, clinical progression and re- assessment by fellow clinical providers in the ED. Further treatment and workup at subsequent clinical providers discretion. Patient/guardian urged not to elope from the ED as their condition may be serious if not clinically assessed and managed. Initial orders include: neb tx, steroids
[2019-07-18] MEDS ORDERED: KETOROLAC 30 MG/1 ML INJ IM ONE (17:55)
[2019-07-18] MEDS ORDERED: SODIUM CHLORIDE 0.9% 1000 ML 1,000 ML IV ONE (17:55)
[2019-07-18] MEDS ORDERED: MAGNESIUM SULFATE 2 GM/50 ML BAG IV ONE (17:55)
[2019-07-18] MEDS ORDERED: dexAMETHasone 20 MG/5 ML VIAL IV ONE (17:55)
--- NOTE | 2019-07-18 18:21 | Emergency Department Report ---
ED Asthma HPI - General Chief Complaint: Adult Asthma Stated Complaint: ASTHMA/TMJ Time Seen by Provider: 07/18/19 17:19 Source: patient, family Mode of arrival: Ambulatory Limitations: No Limitations - History of Present Illness Initial Comments: 34-year-old -[place] female with a past medical history of asthma comes in with her brought onset of shortness of breath and wheezing. Patient also complains of TMJ pain on the left side of her jaw. Patient reports that she is given herself 4 albuterol treatments without much help. Patient denies any fever or chills no nausea no vomiting no chest pain. MD Complaint: "asthma attack" -: This afternoon Severity: moderate Context: none known Associated Symptoms: dry cough Treatments Prior to Arrival: inhaled bronchodilator - Related Data Previous Rx's Medication Instructions Recorded Last Taken Type Fluticasone/Salmeterol [Advair 1 each IH BID #1 blst.w.dev 02/09/18 04/08/18 10:00 Rx 100-50 Diskus] predniSONE [Deltasone] 50 mg PO QDAY #5 tab 04/12/18 Unknown Rx Azithromycin [Zithromax TAB] 250 mg PO QDAY #4 tablet 09/26/18 Unknown Rx Benzonatate [Tessalon Perles] 100 mg PO Q8HR PRN #20 capsule 09/26/18 Unknown Rx Guaifenesin/Pseudoephedrne HCl 1 tab PO BID PRN #20 tab 09/26/18 Unknown Rx [Mucinex D ER 1,200-120 mg Tab] ALBUTEROL Inhaler (OR & NICU) 2 puff IH QID PRN #1 inhalation 03/12/19 Unknown Rx [ProAir HFA Inhaler] Azithromycin [Zithromax] 500 mg PO QDAY #5 tablet 03/12/19 Unknown Rx Montelukast [Singulair] 10 mg PO QPM #14 tablet 03/12/19 Unknown Rx guaiFENesin/CODEINE [Robitussin AC] 5 ml PO Q6H PRN #120 ml 03/12/19 Unknown Rx predniSONE [Deltasone] 50 mg PO QDAY #5 tab 03/12/19 Unknown Rx ALBUTEROL Inhaler (OR & NICU) 2 puff IH Q4HR PRN #1 inhalation 03/27/19 Unknown Rx [ProAir HFA Inhaler] predniSONE [Deltasone] 40 mg PO QDAY 7 Days #14 tablet 03/27/19 Unknown Rx Prednisone [predniSONE 10 mg 10 mg PO .TAPER #1 tab.ds.pk 05/10/19 Unknown Rx (6-Day Pack, 21 Tabs)] levoFLOXacin [Levaquin TAB] 500 mg PO QDAY 7 Days #7 tablet 05/10/19 Unknown Rx ALBUTEROL Inhaler (OR & NICU) 2 puff IH Q4HR PRN #1 inhalation 05/24/19 Unknown Rx [ProAir HFA Inhaler] Albuterol Sulfate [Albuterol 0.63% 0.63 mg IH Q4HR PRN #30 ml 05/24/19 Unknown Rx NEBS] Azithromycin [Zithromax Z-ZECHARIAH] 250 mg PO DAILY #6 tablet 05/24/19 Unknown Rx Cetirizine HCl [Zyrtec 10mg tab] 10 mg PO DAILY #30 tablet 05/24/19 Unknown Rx Codeine Phosphate/Guaifenesin 180 ml PO Q12HR PRN #180 liquid 05/24/19 Unknown Rx [Guaifenesin-Codeine Syrup] Ibuprofen [Motrin] 800 mg PO Q8HR PRN #30 tablet 05/24/19 Unknown Rx predniSONE [Deltasone] 20 mg PO DAILY #15 tablet 05/24/19 Unknown Rx ALBUTEROL NEB's [Proventil 0.083% 2.5 mg IH TID PRN #1 box 06/26/19 Unknown Rx NEBS] predniSONE [Deltasone] 20 mg PO QDAY 5 Days #5 tab 06/26/19 Unknown Rx ALBUTEROL Inhaler (OR & NICU) 2 puff IH QID PRN #8.5 gram 07/18/19 Unknown Rx [ProAir HFA Inhaler] Naproxen 500 mg PO BID PRN #20 tablet 07/18/19 Unknown Rx Prednisone [predniSONE 10 mg 10 mg PO .TAPER #1 tab.ds.pk 07/18/19 Unknown Rx (6-Day Pack, 21 Tabs)] methOCARBAMOL [Robaxin TAB] 500 mg PO BID PRN #20 tablet 07/18/19 Unknown Rx Allergies Allergy/AdvReac Type Severity Reaction Status Date / Time No Known Allergies Allergy Verified 09/26/18 17:17 ED Review of Systems ROS: Stated complaint: ASTHMA/TMJ Other details as noted in HPI Comment: All other systems reviewed and negative ED Past Medical Hx - Past Medical History Previous Medical History?: Yes Hx Asthma: Yes Additional medical history: Chronic TMJ, pneumonia - Surgical History Past Surgical History?: Yes Additional Surgical History: Left TMJ surgery - Social History Smoking Status: Former Smoker Substance Use Type: Prescribed - Medications Home Medications: Home Medications Medication Instructions Recorded Confirmed Last Taken Type Fluticasone/Salmeterol [Advair 1 each IH BID #1 blst.w.dev 02/09/18 04/11/18 04/08/18 10:00 Rx 100-50 Diskus] predniSONE [Deltasone] 50 mg PO QDAY #5 tab 04/12/18 Unknown Rx Azithromycin [Zithromax TAB] 250 mg PO QDAY #4 tablet 09/26/18 Unknown Rx Benzonatate [Tessalon Perles] 100 mg PO Q8HR PRN #20 capsule 09/26/18 Unknown Rx Guaifenesin/Pseudoephedrne HCl 1 tab PO BID PRN #20 tab 09/26/18 Unknown Rx [Mucinex D ER 1,200-120 mg Tab] ALBUTEROL Inhaler (OR & NICU) 2 puff IH QID PRN #1 inhalation 03/12/19 Unknown Rx [ProAir HFA Inhaler] Azithromycin [Zithromax] 500 mg PO QDAY #5 tablet 03/12/19 Unknown Rx Montelukast [Singulair] 10 mg PO QPM #14 tablet 03/12/19 Unknown Rx guaiFENesin/CODEINE [Robitussin AC] 5 ml PO Q6H PRN #120 ml 03/12/19 Unknown Rx predniSONE [Deltasone] 50 mg PO QDAY #5 tab 03/12/19 Unknown Rx ALBUTEROL Inhaler (OR & NICU) 2 puff IH Q4HR PRN #1 inhalation 03/27/19 Unknown Rx [ProAir HFA Inhaler] predniSONE [Deltasone] 40 mg PO QDAY 7 Days #14 tablet 03/27/19 Unknown Rx Prednisone [predniSONE 10 mg 10 mg PO .TAPER #1 tab.ds.pk 05/10/19 Unknown Rx (6-Day Pack, 21 Tabs)] levoFLOXacin [Levaquin TAB] 500 mg PO QDAY 7 Days #7 tablet 05/10/19 Unknown Rx ALBUTEROL Inhaler (OR & NICU) 2 puff IH Q4HR PRN #1 inhalation 05/24/19 Unknown Rx [ProAir HFA Inhaler] Albuterol Sulfate [Albuterol 0.63% 0.63 mg IH Q4HR PRN #30 ml 05/24/19 Unknown Rx NEBS] Azithromycin [Zithromax Z-ZECHARIAH] 250 mg PO DAILY #6 tablet 05/24/19 Unknown Rx Cetirizine HCl [Zyrtec 10mg tab] 10 mg PO DAILY #30 tablet 05/24/19 Unknown Rx Codeine Phosphate/Guaifenesin 180 ml PO Q12HR PRN #180 liquid 05/24/19 Unknown Rx [Guaifenesin-Codeine Syrup] Ibuprofen [Motrin] 800 mg PO Q8HR PRN #30 tablet 05/24/19 Unknown Rx predniSONE [Deltasone] 20 mg PO DAILY #15 tablet 05/24/19 Unknown Rx ALBUTEROL NEB's [Proventil 0.083% 2.5 mg IH TID PRN #1 box 06/26/19 Unknown Rx NEBS] predniSONE [Deltasone] 20 mg PO QDAY 5 Days #5 tab 06/26/19 Unknown Rx ALBUTEROL Inhaler (OR & NICU) 2 puff IH QID PRN #8.5 gram 07/18/19 Unknown Rx [ProAir HFA Inhaler] Naproxen 500 mg PO BID PRN #20 tablet 07/18/19 Unknown Rx Prednisone [predniSONE 10 mg 10 mg PO .TAPER #1 tab.ds.pk 07/18/19 Unknown Rx (6-Day Pack, 21 Tabs)] methOCARBAMOL [Robaxin TAB] 500 mg PO BID PRN #20 tablet 07/18/19 Unknown Rx ED Physical Exam - General Limitations: No Limitations General appearance: alert, in no apparent distress - Head Head exam: Present: atraumatic, normocephalic - Eye Eye exam: Present: normal appearance - ENT ENT exam: Present: mucous membranes moist, other (tenderness to the left TMJ joint) - Neck Neck exam: Present: normal inspection, full ROM. Absent: lymphadenopathy - Respiratory Respiratory exam: Present: rhonchi - Cardiovascular Cardiovascular Exam: Present: tachycardia - GI/Abdominal GI/Abdominal exam: Present: soft, normal bowel sounds - Neurological Exam Neurological exam: Present: alert, oriented X3, normal gait - Psychiatric Psychiatric exam: Present: normal affect, normal mood - Skin Skin exam: Present: warm, dry, intact, normal color. Absent: rash ED Course Vital Signs 07/18/19 17:15 Temperature 98.6 F Pulse Rate 113 H Respiratory 22 Rate Blood Pressure 135/89 O2 Sat by Pulse 97 Oximetry ED Medical Decision Making - Medical Decision Making 34-year-old -[place] female with a past medical history of asthma comes in with her brought onset of shortness of breath and wheezing. Patient also complains of TMJ pain on the left side of her jaw. Patient reports that she is given herself 4 albuterol treatments without much help. Patient denies any fever or chills no nausea no vomiting no chest pain. Treatment: The, dexamethasone C 10 mg, Toradol 15 mg IV, magnesium 2 g IV, normal saline 1 L IV. Respiratory therapist called and evaluated. Critical care attestation.: If time is entered above; I have spent that time in minutes in the direct care of this critically ill patient, excluding procedure time. ED Disposition Clinical Impression: Asthma exacerbation, Temporomandibular joint pain Disposition: DC- TO HOME OR SELFCARE Is pt being admited?: No Does the pt Need Aspirin: No Condition: Stable Prescriptions: Naproxen 500 mg PO BID PRN #20 tablet PRN Reason: Pain , Severe (7-10) Prednisone [predniSONE 10 mg (6-Day Pack, 21 Tabs)] 10 mg PO .TAPER #1 tab.ds.pk ALBUTEROL Inhaler (OR & NICU) [ProAir HFA Inhaler] 2 puff IH QID PRN #8.5 gram PRN Reason: Shortness Of Breath methOCARBAMOL [Robaxin TAB] 500 mg PO BID PRN #20 tablet PRN Reason: Pain , Severe (7-10) Referrals: PRIMARY CAREMD [Primary Care Provider] - 3-5 Days MARIA ANTONIA MANJARREZ MD [Referring] - 3-5 Days Forms: Work/School Release Form(ED)
[2019-07-18] MEDS ORDERED: oxyCODONE /ACETAMINOPHEN 5-325MG TAB PO PRN (19:19)
== END 2019-07-18 20:23 | disposition home or self-care (01) ==
LOC: ED 16:50
DX: J45.901 Unspecified asthma with (acute) exacerbation (principal); M26.622 Arthralgia of left temporomandibular joint; J18.9 Pneumonia, unspecified organism; Z98.890 Other specified postprocedural states; Z87.891 Personal history of nicotine dependence; Z79.899 Other long term (current) drug therapy
CPT/HCPCS: 94640; 96365; 96372; 96375; 99283; J1100; J1885; J3475; J7030; J2930

== ENCOUNTER 2019-08-10 10:47 | Emergency (ER) | payer SELFPAY ==
[2019-08-10] MEDS ORDERED: ALBUTEROL 2.5 MG/3 ML NEBU IH ONE ×2 (11:15→11:40)
[2019-08-10] MEDS ORDERED: predniSONE 20 MG TAB PO ONE (11:40)
[2019-08-10] MEDS ORDERED: IPRATROPIUM 0.02% NEBU 2.5 ML IH ONE (11:40)
--- NOTE | 2019-08-10 11:47 | Emergency Department Report ---
HPI - General Chief Complaint: Dyspnea/Respdistress Time Seen by Provider: 08/10/19 11:40 - HPI HPI: Room 34 The patient is a 34-year-old female presenting with chief complaint of shortness of breath and dental pain. Patient states this morning she began coughing developed shortness of breath consistent with her asthma. Patient states she was wheezing so she took nebulizers at home 4 but it did not help. Patient came to the ED for further evaluation. The patient states she also developed dental pain 3 days ago after biting into a knot. Patient complains of "excruciating" pain to the right lower tooth Location: [See above] Duration: [See above] Quality: [See above] Severity: [See above] Timing: [See above] Context: [See above] Modifying factors: [See above] Associated signs and symptoms: [see above] ED Past Medical Hx - Past Medical History Previous Medical History?: Yes Hx Asthma: Yes Additional medical history: Chronic TMJ, pneumonia - Surgical History Past Surgical History?: Yes Additional Surgical History: Left TMJ surgery - Family History Family history: no significant - Social History Smoking Status: Former Smoker (enzymes 3 weeks) Substance Use Type: None (denies illicit drug use) - Medications Home Medications: Home Medications Medication Instructions Recorded Confirmed Last Taken Type Fluticasone/Salmeterol [Advair 1 each IH BID #1 blst.w.dev 02/09/18 04/11/18 04/08/18 10:00 Rx 100-50 Diskus] predniSONE [Deltasone] 50 mg PO QDAY #5 tab 04/12/18 Unknown Rx Azithromycin [Zithromax TAB] 250 mg PO QDAY #4 tablet 09/26/18 Unknown Rx Benzonatate [Tessalon Perles] 100 mg PO Q8HR PRN #20 capsule 09/26/18 Unknown Rx Guaifenesin/Pseudoephedrne HCl 1 tab PO BID PRN #20 tab 09/26/18 Unknown Rx [Mucinex D ER 1,200-120 mg Tab] ALBUTEROL Inhaler (OR & NICU) 2 puff IH QID PRN #1 inhalation 03/12/19 Unknown Rx [ProAir HFA Inhaler] Azithromycin [Zithromax] 500 mg PO QDAY #5 tablet 03/12/19 Unknown Rx Montelukast [Singulair] 10 mg PO QPM #14 tablet 03/12/19 Unknown Rx guaiFENesin/CODEINE [Robitussin AC] 5 ml PO Q6H PRN #120 ml 03/12/19 Unknown Rx predniSONE [Deltasone] 50 mg PO QDAY #5 tab 03/12/19 Unknown Rx ALBUTEROL Inhaler (OR & NICU) 2 puff IH Q4HR PRN #1 inhalation 03/27/19 Unknown Rx [ProAir HFA Inhaler] predniSONE [Deltasone] 40 mg PO QDAY 7 Days #14 tablet 03/27/19 Unknown Rx Prednisone [predniSONE 10 mg 10 mg PO .TAPER #1 tab.ds.pk 05/10/19 Unknown Rx (6-Day Pack, 21 Tabs)] levoFLOXacin [Levaquin TAB] 500 mg PO QDAY 7 Days #7 tablet 05/10/19 Unknown Rx ALBUTEROL Inhaler (OR & NICU) 2 puff IH Q4HR PRN #1 inhalation 05/24/19 Unknown Rx [ProAir HFA Inhaler] Albuterol Sulfate [Albuterol 0.63% 0.63 mg IH Q4HR PRN #30 ml 05/24/19 Unknown Rx NEBS] Azithromycin [Zithromax Z-ZECHARIAH] 250 mg PO DAILY #6 tablet 05/24/19 Unknown Rx Cetirizine HCl [Zyrtec 10mg tab] 10 mg PO DAILY #30 tablet 05/24/19 Unknown Rx Codeine Phosphate/Guaifenesin 180 ml PO Q12HR PRN #180 liquid 05/24/19 Unknown Rx [Guaifenesin-Codeine Syrup] Ibuprofen [Motrin] 800 mg PO Q8HR PRN #30 tablet 05/24/19 Unknown Rx predniSONE [Deltasone] 20 mg PO DAILY #15 tablet 05/24/19 Unknown Rx ALBUTEROL NEB's [Proventil 0.083% 2.5 mg IH TID PRN #1 box 06/26/19 Unknown Rx NEBS] predniSONE [Deltasone] 20 mg PO QDAY 5 Days #5 tab 06/26/19 Unknown Rx ALBUTEROL Inhaler (OR & NICU) 2 puff IH QID PRN #8.5 gram 07/18/19 Unknown Rx [ProAir HFA Inhaler] Naproxen 500 mg PO BID PRN #20 tablet 07/18/19 Unknown Rx Prednisone [predniSONE 10 mg 10 mg PO .TAPER #1 tab.ds.pk 07/18/19 Unknown Rx (6-Day Pack, 21 Tabs)] methOCARBAMOL [Robaxin TAB] 500 mg PO BID PRN #20 tablet 07/18/19 Unknown Rx ALBUTEROL Inhaler (OR & NICU) 2 puff IH QID PRN #8.5 gram 08/10/19 Unknown Rx [ProAir HFA Inhaler] Albuterol Sulfate [Albuterol 0.63% 0.63 mg IH TID PRN #90 ml 08/10/19 Unknown Rx NEBS] HYDROcodone/APAP 5-325 [[place] 1 - 2 each PO Q6HR PRN #14 tablet 08/10/19 Unknown Rx 5/325] Ibuprofen [Motrin 800 MG tab] 800 mg PO Q8HR PRN #20 tablet 08/10/19 Unknown Rx Prednisone [predniSONE 10 mg 10 mg PO .TAPER #1 tab.ds.pk 08/10/19 Unknown Rx (6-Day Pack, 21 Tabs)] ED Review of Systems ROS: Stated complaint: ASTHMA Other details as noted in HPI Constitutional: no symptoms reported Eyes: denies: eye pain ENT: dental pain Respiratory: cough, shortness of breath, wheezing Physical Exam - Physical Exam Vital Signs: Vital Signs 08/10/19 08/10/19 10:57 11:16 Temperature 98.7 F Pulse Rate 104 H Pulse Rate [ 85 Bilateral] Respiratory 22 Rate Respiratory 18 Rate [Bilateral ] Blood Pressure 149/92 O2 Sat by Pulse 95 Oximetry Physical Exam: GENERAL: The patient is well-developed well-nourished female sitting in chair not appearing to be in acute distress. [] HEENT: Normocephalic. Atraumatic. Extraocular motions are intact. Dental fracture, all present at the base of tooth (#30?) Is no gingival erythema or edema appreciated NECK: Supple. Trachea midline CHEST/LUNGS: Diffuse wheezing HEART/CARDIOVASCULAR: Regular. There is no tachycardia. There is no gallop rub or murmur. ABDOMEN: Abdomen is soft, nontender. Patient has normal bowel sounds. There is no abdominal distention. SKIN: There is no rash. There is no edema. There is no diaphoresis. NEURO: The patient is awake, alert, and oriented. The patient is cooperative. The patient has normal speech MUSCULOSKELETAL: There is no evidence of acute injury. ED Course Vital Signs 08/10/19 08/10/19 10:57 11:16 Temperature 98.7 F Pulse Rate 104 H Pulse Rate [ 85 Bilateral] Respiratory 22 Rate Respiratory 18 Rate [Bilateral ] Blood Pressure 149/92 O2 Sat by Pulse 95 Oximetry - Reevaluation(s) Reevaluation #1: 08/10/19 13:31 Patient improved ED Medical Decision Making - Differential Diagnosis acute asthma exacerbation, dental pain Critical care attestation.: If time is entered above; I have spent that time in minutes in the direct care of this critically ill patient, excluding procedure time. ED Disposition Clinical Impression: Asthma exacerbation, Broken tooth Disposition: DC- TO HOME OR SELFCARE Is pt being admited?: No Does the pt Need Aspirin: No Condition: Stable Instructions: Asthma (ED) Additional Instructions: Return to the emergency department should you develop worsening symptoms, inability to tolerate food or liquids, high fever or any other concerns Prescriptions: Albuterol Sulfate [Albuterol 0.63% NEBS] 0.63 mg IH TID PRN #90 ml PRN Reason: Wheezing Ibuprofen [Motrin 800 MG tab] 800 mg PO Q8HR PRN #20 tablet PRN Reason: Pain, Moderate (4-6) HYDROcodone/APAP 5-325 [[place] 5/325] 1 - 2 each PO Q6HR PRN #14 tablet PRN Reason: Pain Prednisone [predniSONE 10 mg (6-Day Pack, 21 Tabs)] 10 mg PO .TAPER #1 tab.ds.pk ALBUTEROL Inhaler (OR & NICU) [ProAir HFA Inhaler] 2 puff IH QID PRN #8.5 gram PRN Reason: Shortness Of Breath Referrals: PRIMARY CARE, [Primary Care Provider] - 3-5 Days [facility] [Outside] - 3-5 Days Time of Disposition: 13:34
[2019-08-10] MEDS ORDERED: IBUPROFEN 800 MG TAB PO ONE (13:31)
[2019-08-10 14:19] VITALS: BP 130/82
== END 2019-08-10 14:20 | disposition home or self-care (01) ==
LOC: ED 10:47
DX: S02.5XXA Fracture of tooth (traumatic), initial encounter for closed fracture (principal); X58.XXXA Exposure to other specified factors, initial encounter; Z87.891 Personal history of nicotine dependence; J45.21 Mild intermittent asthma with (acute) exacerbation; Z79.899 Other long term (current) drug therapy; Y93.9 Activity, unspecified; Y92.89 Other specified places as the place of occurrence of the external cause; Y99.8 Other external cause status
CPT/HCPCS: 94640; 99283; J7512; 94644

== ENCOUNTER 2019-08-24 23:10 | Emergency (ER) | payer SELFPAY ==
[2019-08-24] MEDS ORDERED: IPRATROPIUM/ALBUTEROL SULFATE 3 ML AMPUL.NEB IH ONE ×2 (23:38→23:56)
[2019-08-24 23:56] VITALS: BP 138/75
--- NOTE | 2019-08-25 00:37 | XRay Report ---
. CHEST PA AND LATERAL VIEWS INDICATION: cough and wheezing. COMPARISON: 06/26/2019. FINDINGS: Support devices: None Heart: Normal and unchanged Lungs/Pleura: No acute pulmonary or pleural findings. IMPRESSION: 1. No acute disease and no interval change. Signer Name: Jorge Nation MD Signed: 08/25/2019 12:33 AM Workstation Name: [email or web address]
[2019-08-25] MEDS ORDERED: IPRATROPIUM/ALBUTEROL SULFATE 3 ML AMPUL.NEB IH ONE (01:13)
[2019-08-25] MEDS ORDERED: dexAMETHasone 20 MG/5 ML VIAL ONE (02:37)
[2019-08-25] MEDS ORDERED: dexAMETHasone 20 MG/5 ML VIAL IV ONE (03:30)
[2019-08-25] MEDS ORDERED: ALBUTEROL 2.5 MG/3 ML NEBU IH ONE (05:28)
[2019-08-25] MEDS ORDERED: diphenhydrAMINE 50 MG/ML VIAL IV STA (05:28)
--- NOTE | 2019-08-25 05:50 | Emergency Department Report ---
ED Asthma HPI - General Chief Complaint: Adult Asthma Stated Complaint: ASTHMA Time Seen by Provider: 08/25/19 05:28 Source: patient Mode of arrival: Ambulatory Limitations: No Limitations - History of Present Illness MD Complaint: shortness of breath, wheezing -: Gradual Asthma History: childhood onset Severity: mild, moderate Context: none known, recent URI, ran out of meds, medication non-compliance Associated Symptoms: dry cough - Related Data Current Asthma Therapy: inhaled bronchodilator, inhaled steroid Previous Rx's Medication Instructions Recorded Last Taken Type Fluticasone/Salmeterol [Advair 1 each IH BID #1 blst.w.dev 02/09/18 04/08/18 10:00 Rx 100-50 Diskus] predniSONE [Deltasone] 50 mg PO QDAY #5 tab 04/12/18 Unknown Rx Azithromycin [Zithromax TAB] 250 mg PO QDAY #4 tablet 09/26/18 Unknown Rx Benzonatate [Tessalon Perles] 100 mg PO Q8HR PRN #20 capsule 09/26/18 Unknown Rx Guaifenesin/Pseudoephedrne HCl 1 tab PO BID PRN #20 tab 09/26/18 Unknown Rx [Mucinex D ER 1,200-120 mg Tab] ALBUTEROL Inhaler (OR & NICU) 2 puff IH QID PRN #1 inhalation 03/12/19 Unknown Rx [ProAir HFA Inhaler] Azithromycin [Zithromax] 500 mg PO QDAY #5 tablet 03/12/19 Unknown Rx Montelukast [Singulair] 10 mg PO QPM #14 tablet 03/12/19 Unknown Rx guaiFENesin/CODEINE [Robitussin AC] 5 ml PO Q6H PRN #120 ml 03/12/19 Unknown Rx predniSONE [Deltasone] 50 mg PO QDAY #5 tab 03/12/19 Unknown Rx ALBUTEROL Inhaler (OR & NICU) 2 puff IH Q4HR PRN #1 inhalation 03/27/19 Unknown Rx [ProAir HFA Inhaler] predniSONE [Deltasone] 40 mg PO QDAY 7 Days #14 tablet 03/27/19 Unknown Rx Prednisone [predniSONE 10 mg 10 mg PO .TAPER #1 tab.ds.pk 05/10/19 Unknown Rx (6-Day Pack, 21 Tabs)] levoFLOXacin [Levaquin TAB] 500 mg PO QDAY 7 Days #7 tablet 05/10/19 Unknown Rx ALBUTEROL Inhaler (OR & NICU) 2 puff IH Q4HR PRN #1 inhalation 05/24/19 Unknown Rx [ProAir HFA Inhaler] Albuterol Sulfate [Albuterol 0.63% 0.63 mg IH Q4HR PRN #30 ml 05/24/19 Unknown Rx NEBS] Azithromycin [Zithromax Z-ZECHARIAH] 250 mg PO DAILY #6 tablet 05/24/19 Unknown Rx Cetirizine HCl [Zyrtec 10mg tab] 10 mg PO DAILY #30 tablet 05/24/19 Unknown Rx Codeine Phosphate/Guaifenesin 180 ml PO Q12HR PRN #180 liquid 05/24/19 Unknown Rx [Guaifenesin-Codeine Syrup] Ibuprofen [Motrin] 800 mg PO Q8HR PRN #30 tablet 05/24/19 Unknown Rx predniSONE [Deltasone] 20 mg PO DAILY #15 tablet 05/24/19 Unknown Rx ALBUTEROL NEB's [Proventil 0.083% 2.5 mg IH TID PRN #1 box 06/26/19 Unknown Rx NEBS] predniSONE [Deltasone] 20 mg PO QDAY 5 Days #5 tab 06/26/19 Unknown Rx ALBUTEROL Inhaler (OR & NICU) 2 puff IH QID PRN #8.5 gram 07/18/19 Unknown Rx [ProAir HFA Inhaler] Naproxen 500 mg PO BID PRN #20 tablet 07/18/19 Unknown Rx Prednisone [predniSONE 10 mg 10 mg PO .TAPER #1 tab.ds.pk 07/18/19 Unknown Rx (6-Day Pack, 21 Tabs)] methOCARBAMOL [Robaxin TAB] 500 mg PO BID PRN #20 tablet 07/18/19 Unknown Rx ALBUTEROL Inhaler (OR & NICU) 2 puff IH QID PRN #8.5 gram 08/10/19 Unknown Rx [ProAir HFA Inhaler] Albuterol Sulfate [Albuterol 0.63% 0.63 mg IH TID PRN #90 ml 08/10/19 Unknown Rx NEBS] HYDROcodone/APAP 5-325 [[place] 1 - 2 each PO Q6HR PRN #14 tablet 08/10/19 Unknown Rx 5/325] Ibuprofen [Motrin 800 MG tab] 800 mg PO Q8HR PRN #20 tablet 08/10/19 Unknown Rx Prednisone [predniSONE 10 mg 10 mg PO .TAPER #1 tab.ds.pk 08/10/19 Unknown Rx (6-Day Pack, 21 Tabs)] ALBUTEROL Inhaler (OR & NICU) 2 puff IH QID PRN #1 inhalation 08/25/19 Unknown Rx [ProAir HFA Inhaler] Azithromycin [Zithromax] 500 mg PO QDAY #5 tablet 08/25/19 Unknown Rx guaiFENesin/CODEINE [Robitussin AC] 5 ml PO Q6H PRN #120 ml 08/25/19 Unknown Rx predniSONE [Deltasone] 50 mg PO QDAY #5 tab 08/25/19 Unknown Rx Allergies Allergy/AdvReac Type Severity Reaction Status Date / Time No Known Allergies Allergy Verified 09/26/18 17:17 ED Review of Systems ROS: Stated complaint: ASTHMA Other details as noted in HPI Comment: All other systems reviewed and negative ED Past Medical Hx - Past Medical History Previous Medical History?: Yes Hx Asthma: Yes Additional medical history: Chronic TMJ, pneumonia - Surgical History Past Surgical History?: Yes Additional Surgical History: Left TMJ surgery - Social History Smoking Status: Former Smoker Substance Use Type: None - Medications Home Medications: Home Medications Medication Instructions Recorded Confirmed Last Taken Type Fluticasone/Salmeterol [Advair 1 each IH BID #1 blst.w.dev 02/09/18 04/11/18 04/08/18 10:00 Rx 100-50 Diskus] predniSONE [Deltasone] 50 mg PO QDAY #5 tab 04/12/18 Unknown Rx Azithromycin [Zithromax TAB] 250 mg PO QDAY #4 tablet 09/26/18 Unknown Rx Benzonatate [Tessalon Perles] 100 mg PO Q8HR PRN #20 capsule 09/26/18 Unknown Rx Guaifenesin/Pseudoephedrne HCl 1 tab PO BID PRN #20 tab 09/26/18 Unknown Rx [Mucinex D ER 1,200-120 mg Tab] ALBUTEROL Inhaler (OR & NICU) 2 puff IH QID PRN #1 inhalation 03/12/19 Unknown Rx [ProAir HFA Inhaler] Azithromycin [Zithromax] 500 mg PO QDAY #5 tablet 03/12/19 Unknown Rx Montelukast [Singulair] 10 mg PO QPM #14 tablet 03/12/19 Unknown Rx guaiFENesin/CODEINE [Robitussin AC] 5 ml PO Q6H PRN #120 ml 03/12/19 Unknown Rx predniSONE [Deltasone] 50 mg PO QDAY #5 tab 03/12/19 Unknown Rx ALBUTEROL Inhaler (OR & NICU) 2 puff IH Q4HR PRN #1 inhalation 03/27/19 Unknown Rx [ProAir HFA Inhaler] predniSONE [Deltasone] 40 mg PO QDAY 7 Days #14 tablet 03/27/19 Unknown Rx Prednisone [predniSONE 10 mg 10 mg PO .TAPER #1 tab.ds.pk 05/10/19 Unknown Rx (6-Day Pack, 21 Tabs)] levoFLOXacin [Levaquin TAB] 500 mg PO QDAY 7 Days #7 tablet 05/10/19 Unknown Rx ALBUTEROL Inhaler (OR & NICU) 2 puff IH Q4HR PRN #1 inhalation 05/24/19 Unknown Rx [ProAir HFA Inhaler] Albuterol Sulfate [Albuterol 0.63% 0.63 mg IH Q4HR PRN #30 ml 05/24/19 Unknown Rx NEBS] Azithromycin [Zithromax Z-ZECHARIAH] 250 mg PO DAILY #6 tablet 05/24/19 Unknown Rx Cetirizine HCl [Zyrtec 10mg tab] 10 mg PO DAILY #30 tablet 05/24/19 Unknown Rx Codeine Phosphate/Guaifenesin 180 ml PO Q12HR PRN #180 liquid 05/24/19 Unknown Rx [Guaifenesin-Codeine Syrup] Ibuprofen [Motrin] 800 mg PO Q8HR PRN #30 tablet 05/24/19 Unknown Rx predniSONE [Deltasone] 20 mg PO DAILY #15 tablet 05/24/19 Unknown Rx ALBUTEROL NEB's [Proventil 0.083% 2.5 mg IH TID PRN #1 box 06/26/19 Unknown Rx NEBS] predniSONE [Deltasone] 20 mg PO QDAY 5 Days #5 tab 06/26/19 Unknown Rx ALBUTEROL Inhaler (OR & NICU) 2 puff IH QID PRN #8.5 gram 07/18/19 Unknown Rx [ProAir HFA Inhaler] Naproxen 500 mg PO BID PRN #20 tablet 07/18/19 Unknown Rx Prednisone [predniSONE 10 mg 10 mg PO .TAPER #1 tab.ds.pk 07/18/19 Unknown Rx (6-Day Pack, 21 Tabs)] methOCARBAMOL [Robaxin TAB] 500 mg PO BID PRN #20 tablet 07/18/19 Unknown Rx ALBUTEROL Inhaler (OR & NICU) 2 puff IH QID PRN #8.5 gram 08/10/19 Unknown Rx [ProAir HFA Inhaler] Albuterol Sulfate [Albuterol 0.63% 0.63 mg IH TID PRN #90 ml 08/10/19 Unknown Rx NEBS] HYDROcodone/APAP 5-325 [[place] 1 - 2 each PO Q6HR PRN #14 tablet 08/10/19 Unknown Rx 5/325] Ibuprofen [Motrin 800 MG tab] 800 mg PO Q8HR PRN #20 tablet 08/10/19 Unknown Rx Prednisone [predniSONE 10 mg 10 mg PO .TAPER #1 tab.ds.pk 08/10/19 Unknown Rx (6-Day Pack, 21 Tabs)] ALBUTEROL Inhaler (OR & NICU) 2 puff IH QID PRN #1 inhalation 08/25/19 Unknown Rx [ProAir HFA Inhaler] Azithromycin [Zithromax] 500 mg PO QDAY #5 tablet 08/25/19 Unknown Rx guaiFENesin/CODEINE [Robitussin AC] 5 ml PO Q6H PRN #120 ml 08/25/19 Unknown Rx predniSONE [Deltasone] 50 mg PO QDAY #5 tab 08/25/19 Unknown Rx ED Physical Exam - General Limitations: No Limitations General appearance: alert, in no apparent distress - Head Head exam: Present: atraumatic, normocephalic - Eye Eye exam: Present: normal appearance, PERRL, EOMI Pupils: Present: normal accommodation - ENT ENT exam: Present: mucous membranes moist - Neck Neck exam: Present: normal inspection - Respiratory Respiratory exam: Present: normal lung sounds bilaterally, wheezes. Absent: respiratory distress - Cardiovascular Cardiovascular Exam: Present: regular rate, normal rhythm. Absent: systolic murmur, diastolic murmur, rubs, gallop - GI/Abdominal GI/Abdominal exam: Present: soft, normal bowel sounds - Extremities Exam Extremities exam: Present: normal inspection - Back Exam Back exam: Present: normal inspection - Neurological Exam Neurological exam: Present: alert, oriented X3 - Psychiatric Psychiatric exam: Present: normal affect, normal mood - Skin Skin exam: Present: warm, dry, intact, normal color. Absent: rash ED Course Vital Signs 08/24/19 08/25/19 08/25/19 23:54 01:16 05:58 Temperature 98.9 F 98.4 F Pulse Rate 104 H 97 H Pulse Rate [ 85 Posterior] Respiratory 20 18 Rate Respiratory 20 Rate [Posterior ] Blood Pressure 138/75 [Left] O2 Sat by Pulse 100 96 Oximetry - Reevaluation(s) Reevaluation #1: 08/25/19 06:51 Respiratory status medications patient still stress and patient states she feels much much better. States she feels comfortable on home was very comfortable with this disease and says she is aware of when to return should she need to do so ED Medical Decision Making - Radiology Data Radiology results: report reviewed (normal cxr) - Medical Decision Making presents with cough and expiratory wheezing ML 2/2 asthma exacerbation. No AMS, silent respirations, belly-breathing, or other sign of impending ventilatory failure. Never intubated or admitted to the hospital for asthma exacerbation. Unlikely PNA, CHF, COPD (Nonsmoker), FBAO, GERD. Workup Defer labs and imaging given clinically in exacerbation of known asthma with similar exacerbation presentations per patient. Therapies: Prednisone 60 mg PO. Albuterol 2.5-5mg q20min x3 OR 15mg/hr Ipratropium 0.5mg x1 Magnesium IV was also added near the end of therapy for extra security Reassessment: Patient improved with albuterol and ipratropium in less than 3 hours. Exam was around emergency Department with lower sternal distress sinus maintaining about 97% Disposition: Discharge home with return precautions. Advised to follow up with primary care physician within next 24-48 ho Critical care attestation.: If time is entered above; I have spent that time in minutes in the direct care of this critically ill patient, excluding procedure time. ED Disposition Clinical Impression: Asthma exacerbation Disposition: - TO HOME OR SELFCARE Is pt being admited?: No Does the pt Need Aspirin: No Condition: Stable Instructions: Asthma (ED) Prescriptions: predniSONE [Deltasone] 50 mg PO QDAY #5 tab ALBUTEROL Inhaler (OR & NICU) [ProAir HFA Inhaler] 2 puff IH QID PRN #1 inhalation PRN Reason: Shortness Of Breath guaiFENesin/CODEINE [Robitussin AC] 5 ml PO Q6H PRN #120 ml PRN Reason: Cough Azithromycin [Zithromax] 500 mg PO QDAY #5 tablet Referrals: PRIMARY MD FRANCES [Primary Care Provider] - 3-5 Days BENJI STRINGER MD [Staff Physician] - 3-5 Days
== END 2019-08-25 07:06 | disposition home or self-care (01) ==
LOC: ED 23:10
DX: J45.901 Unspecified asthma with (acute) exacerbation (principal); Z87.891 Personal history of nicotine dependence; Z98.890 Other specified postprocedural states; Z79.899 Other long term (current) drug therapy
CPT/HCPCS: 71046; 94640; 96374; 96375; 99284; J1100; J1200; 94644

== ENCOUNTER 2019-09-03 10:55 | Emergency (ER) | payer SELFPAY ==
[2019-09-03] MEDS ORDERED: IPRATROPIUM 0.02% NEBU 2.5 ML IH ONE ×2 (11:08→12:21)
[2019-09-03] MEDS ORDERED: ALBUTEROL 2.5 MG/3 ML NEBU IH ONE ×2 (11:08→12:21)
[2019-09-03] MEDS ORDERED: dexAMETHasone 20 MG/5 ML VIAL IM ONE (11:09)
--- NOTE | 2019-09-03 11:10 | Event Note ---
ED Screening Note Date of service: 09/03/19 Time: 11:06 ED Screening Note: 34 y/o female comes in for asthma flare up that started this morning. Having cp from cough. Has tried her her neb machine and inhaler. Has had wheezing. Last treatment 7am took 7.5 mg. Patient wheezing with rhonhi. This initial assessment/diagnostic orders/clinical plan/treatment(s) is/are subject to change based on patients health status, clinical progression and re- assessment by fellow clinical providers in the ED. Further treatment and workup at subsequent clinical providers discretion. Patient/guardian urged not to elope from the ED as their condition may be serious if not clinically assessed and managed. Initial orders include:
--- NOTE | 2019-09-03 11:38 | Emergency Department Report ---
HPI - General Chief Complaint: Dyspnea/Respdistress Time Seen by Provider: 09/03/19 11:05 - HPI HPI: Room 43 The patient is a 34-year-old female presenting with a chief complaint of asthma exacerbation. Patient states his symptoms began last night with postnasal drip which led to a cough. The patient states that the cough some spasm she had a flareup of her asthma. Patient began wheezing and uses nebulizers at home but it did not help probably her to come to the emergency department Location: [See above] Duration: [See above] Quality: [See above] Severity: [See above] Timing: [See above] Context: [See above] Modifying factors: [See above] Associated signs and symptoms: [see above] ED Past Medical Hx - Past Medical History Hx Asthma: Yes Additional medical history: Chronic TMJ, pneumonia - Surgical History Additional Surgical History: Left TMJ surgery - Family History Family history: no significant - Social History Smoking Status: Former Smoker (none 1 month) Substance Use Type: None (denies illicit drug use) - Medications Home Medications: Home Medications Medication Instructions Recorded Confirmed Last Taken Type Fluticasone/Salmeterol [Advair 1 each IH BID #1 blst.w.dev 02/09/18 04/11/18 04/08/18 10:00 Rx 100-50 Diskus] predniSONE [Deltasone] 50 mg PO QDAY #5 tab 04/12/18 Unknown Rx Azithromycin [Zithromax TAB] 250 mg PO QDAY #4 tablet 09/26/18 Unknown Rx Benzonatate [Tessalon Perles] 100 mg PO Q8HR PRN #20 capsule 09/26/18 Unknown Rx Guaifenesin/Pseudoephedrne HCl 1 tab PO BID PRN #20 tab 09/26/18 Unknown Rx [Mucinex D ER 1,200-120 mg Tab] Albuterol INH(or & Nicu Only) 2 puff IH QID PRN #1 inhalation 03/12/19 Unknown Rx [ProAir HFA Inhaler] Azithromycin [Zithromax] 500 mg PO QDAY #5 tablet 03/12/19 Unknown Rx Montelukast [Singulair] 10 mg PO QPM #14 tablet 03/12/19 Unknown Rx guaiFENesin/CODEINE [Robitussin AC] 5 ml PO Q6H PRN #120 ml 03/12/19 Unknown Rx predniSONE [Deltasone] 50 mg PO QDAY #5 tab 03/12/19 Unknown Rx Albuterol INH(or & Nicu Only) 2 puff IH Q4HR PRN #1 inhalation 03/27/19 Unknown Rx [ProAir HFA Inhaler] predniSONE [Deltasone] 40 mg PO QDAY 7 Days #14 tablet 03/27/19 Unknown Rx Prednisone [predniSONE 10 mg 10 mg PO .TAPER #1 tab.ds.pk 05/10/19 Unknown Rx (6-Day Pack, 21 Tabs)] levoFLOXacin [Levaquin TAB] 500 mg PO QDAY 7 Days #7 tablet 05/10/19 Unknown Rx Albuterol INH(or & Nicu Only) 2 puff IH Q4HR PRN #1 inhalation 05/24/19 Unknown Rx [ProAir HFA Inhaler] Albuterol Sulfate [Albuterol 0.63% 0.63 mg IH Q4HR PRN #30 ml 05/24/19 Unknown Rx NEBS] Azithromycin [Zithromax Z-ZECHARIAH] 250 mg PO DAILY #6 tablet 05/24/19 Unknown Rx Cetirizine HCl [Zyrtec 10mg tab] 10 mg PO DAILY #30 tablet 05/24/19 Unknown Rx Codeine Phosphate/Guaifenesin 180 ml PO Q12HR PRN #180 liquid 05/24/19 Unknown Rx [Guaifenesin-Codeine Syrup] Ibuprofen [Motrin] 800 mg PO Q8HR PRN #30 tablet 05/24/19 Unknown Rx predniSONE [Deltasone] 20 mg PO DAILY #15 tablet 05/24/19 Unknown Rx ALBUTEROL NEB's [Proventil 0.083% 2.5 mg IH TID PRN #1 box 06/26/19 Unknown Rx NEBS] predniSONE [Deltasone] 20 mg PO QDAY 5 Days #5 tab 06/26/19 Unknown Rx Albuterol INH(or & Nicu Only) 2 puff IH QID PRN #8.5 gram 07/18/19 Unknown Rx [ProAir HFA Inhaler] Naproxen 500 mg PO BID PRN #20 tablet 07/18/19 Unknown Rx Prednisone [predniSONE 10 mg 10 mg PO .TAPER #1 tab.ds.pk 07/18/19 Unknown Rx (6-Day Pack, 21 Tabs)] methOCARBAMOL [Robaxin TAB] 500 mg PO BID PRN #20 tablet 07/18/19 Unknown Rx Albuterol INH(or & Nicu Only) 2 puff IH QID PRN #8.5 gram 08/10/19 Unknown Rx [ProAir HFA Inhaler] Albuterol Sulfate [Albuterol 0.63% 0.63 mg IH TID PRN #90 ml 08/10/19 Unknown Rx NEBS] HYDROcodone/APAP 5-325 [[place] 1 - 2 each PO Q6HR PRN #14 tablet 08/10/19 Unknown Rx 5/325] Ibuprofen [Motrin 800 MG tab] 800 mg PO Q8HR PRN #20 tablet 08/10/19 Unknown Rx Prednisone [predniSONE 10 mg 10 mg PO .TAPER #1 tab.ds.pk 08/10/19 Unknown Rx (6-Day Pack, 21 Tabs)] Albuterol INH(or & Nicu Only) 2 puff IH QID PRN #1 inhalation 08/25/19 Unknown Rx [ProAir HFA Inhaler] Azithromycin [Zithromax] 500 mg PO QDAY #5 tablet 08/25/19 Unknown Rx guaiFENesin/CODEINE [Robitussin AC] 5 ml PO Q6H PRN #120 ml 08/25/19 Unknown Rx predniSONE [Deltasone] 50 mg PO QDAY #5 tab 08/25/19 Unknown Rx Albuterol INH(or & Nicu Only) 2 puff IH QID PRN #8.5 gram 09/03/19 Unknown Rx [ProAir HFA Inhaler] Albuterol Sulfate [Albuterol 0.63% 0.63 mg IH TID PRN #90 ml 09/03/19 Unknown Rx NEBS] HYDROcodone/APAP 5-325 [[place] 1 - 2 each PO Q6HR PRN #10 tablet 09/03/19 Unknown Rx 5/325] Ibuprofen [Motrin 800 MG tab] 800 mg PO Q8HR PRN #20 tablet 09/03/19 Unknown Rx Prednisone [predniSONE 10 mg 10 mg PO .TAPER #1 tab.ds.pk 09/03/19 Unknown Rx (6-Day Pack, 21 Tabs)] ED Review of Systems ROS: Stated complaint: ASTHMA FLARE UP Other details as noted in HPI Constitutional: no symptoms reported ENT: other (postnasal drip) Respiratory: cough, wheezing Physical Exam - Physical Exam Vital Signs: Vital Signs 09/03/19 09/03/19 11:05 11:25 Temperature 99 F Pulse Rate 103 H Pulse Rate [ 103 H Anterior Bilateral Throughout] Respiratory 24 Rate Respiratory 19 Rate [Anterior Bilateral Throughout] Blood Pressure 124/66 O2 Sat by Pulse 95 Oximetry Physical Exam: GENERAL: The patient is well-developed well-nourished female sitting in chair receiving nebulizer not appearing to be in acute distress. [] HEENT: Normocephalic. Atraumatic. Extraocular motions are intact. Patient has moist mucous membranes. NECK: Supple. Trachea midline CHEST/LUNGS: Diffuse wheezing. HEART/CARDIOVASCULAR: Regular. There is no tachycardia. There is no gallop rub or murmur. ABDOMEN: Abdomen is soft, nontender. Patient has normal bowel sounds. There is no abdominal distention. SKIN: There is no rash. There is no diaphoresis. NEURO: The patient is awake, alert, and oriented. The patient is cooperative. The patient has normal speech MUSCULOSKELETAL:There is no evidence of acute injury. ED Course Vital Signs 09/03/19 09/03/19 11:05 11:25 Temperature 99 F Pulse Rate 103 H Pulse Rate [ 103 H Anterior Bilateral Throughout] Respiratory 24 Rate Respiratory 19 Rate [Anterior Bilateral Throughout] Blood Pressure 124/66 O2 Sat by Pulse 95 Oximetry - Reevaluation(s) Reevaluation #1: 09/03/19 12:23 Patient states she feels slightly improved. Patient still has wheezing. Second neb ordered 09/03/19 13:27 Patient states she feels improved and is comfortable going home ED Medical Decision Making - Differential Diagnosis acute asthma exacerbation Critical care attestation.: If time is entered above; I have spent that time in minutes in the direct care of this critically ill patient, excluding procedure time. ED Disposition Clinical Impression: Asthma exacerbation Disposition: [id number] TO HOME OR SELFCARE Is pt being admited?: No Does the pt Need Aspirin: No Condition: Stable Instructions: Asthma (ED) Additional Instructions: Return to the emergency department should you develop worsening symptoms, inability to tolerate food or liquids, high fever or any other concerns Prescriptions: Albuterol Sulfate [Albuterol 0.63% NEBS] 0.63 mg IH TID PRN #90 ml PRN Reason: Wheezing Ibuprofen [Motrin 800 MG tab] 800 mg PO Q8HR PRN #20 tablet PRN Reason: Pain, Moderate (4-6) HYDROcodone/APAP 5-325 [[place] 5/325] 1 - 2 each PO Q6HR PRN #10 tablet PRN Reason: Pain Prednisone [predniSONE 10 mg (6-Day Pack, 21 Tabs)] 10 mg PO .TAPER #1 tab.ds.pk Albuterol INH(or & Nicu Only) [ProAir HFA Inhaler] 2 puff IH QID PRN #8.5 gram PRN Reason: Shortness Of Breath Referrals: JASON SHELDON MD [Staff Physician] - 3-5 Days [facility] [Outside] - 3-5 Days Time of Disposition: 13:28
[2019-09-03 13:48] VITALS: BP 130/70
== END 2019-09-03 13:47 | disposition home or self-care (01) ==
LOC: ED 10:55
DX: J45.901 Unspecified asthma with (acute) exacerbation (principal); Z87.891 Personal history of nicotine dependence
CPT/HCPCS: 94640; 96372; 99283; J1100; 94644

== ENCOUNTER 2019-09-19 14:32 | Emergency (ER) | payer SELFPAY ==
[2019-09-19] MEDS ORDERED: IPRATROPIUM 0.02% NEBU 2.5 ML IH ONE (14:39)
[2019-09-19] MEDS ORDERED: predniSONE 20 MG TAB PO ONE (14:39)
[2019-09-19] MEDS ORDERED: ALBUTEROL 2.5 MG/3 ML NEBU IH ONE ×2 (14:39→17:50)
--- NOTE | 2019-09-19 14:39 | Emergency Department Report ---
Blank Doc - Documentation Documentation: 34-year-old female that presents with URI symptoms and wheezing. This initial assessment/diagnostic orders/clinical plan/treatment(s) is/are subject to change based on patient's health status, clinical progression and re- assessment by fellow clinical providers in the ED. Further treatment and workup at subsequent clinical providers discretion. Patient/guardians urged not to elope from the ED as their condition may be serious if not clinically assessed and managed. Initial orders include: 1- Patient sent to [facility] for further evaluation and treatment 2- CXR 3- breathing treatment/steroids
--- NOTE | 2019-09-19 15:15 | XRay Report ---
CHEST 2 VIEWS INDICATION / CLINICAL INFORMATION: cough/wheezing. COMPARISON: Chest x-ray 09/13/2019 FINDINGS: SUPPORT DEVICES: None. HEART / MEDIASTINUM: No significant abnormality. LUNGS / PLEURA: No significant pulmonary or pleural abnormality. No pneumothorax. ADDITIONAL FINDINGS: No significant additional findings. IMPRESSION: 1. No acute findings. Signer Name: Michael Murphy MD Signed: 09/19/2019 3:11 PM Workstation Name: [id number]
[2019-09-19] MEDS ORDERED: ACETAMINOPEN W/CODEINE 120-12MG ORAL LIQD 5 ML PO ONE (16:02)
--- NOTE | 2019-09-19 16:50 | Emergency Department Report ---
ED Asthma HPI - General Chief Complaint: Adult Asthma Stated Complaint: ASTHMA/CHEST PAIN Time Seen by Provider: 09/19/19 14:38 Source: patient Mode of arrival: Ambulatory Limitations: No Limitations - History of Present Illness Initial Comments: This is a 34-year-old female with a history of asthma presents to ED complaining of intermittent dry cough and which has now flared up her asthma attack. Patient states she sick. Home with no relief. Patient states that coughing is causing her to have some chest pain. She was fevers/chills/nausea vomiting/abdominal pain/shortness of breath MD Complaint: "asthma attack" Severity: moderate Associated Symptoms: dry cough Treatments Prior to Arrival: inhaled bronchodilator - Related Data Previous Rx's Medication Instructions Recorded Last Taken Type Fluticasone/Salmeterol [Advair 1 each IH BID #1 blst.w.dev 02/09/18 04/08/18 10:00 Rx 100-50 Diskus] predniSONE [Deltasone] 50 mg PO QDAY #5 tab 04/12/18 Unknown Rx Azithromycin [Zithromax TAB] 250 mg PO QDAY #4 tablet 09/26/18 Unknown Rx Guaifenesin/Pseudoephedrne HCl 1 tab PO BID PRN #20 tab 09/26/18 Unknown Rx [Mucinex D ER 1,200-120 mg Tab] Albuterol INH(or & Nicu Only) 2 puff IH QID PRN #1 inhalation 03/12/19 Unknown Rx [ProAir HFA Inhaler] Azithromycin [Zithromax] 500 mg PO QDAY #5 tablet 03/12/19 Unknown Rx guaiFENesin/CODEINE [Robitussin AC] 5 ml PO Q6H PRN #120 ml 03/12/19 Unknown Rx predniSONE [Deltasone] 50 mg PO QDAY #5 tab 03/12/19 Unknown Rx Albuterol INH(or & Nicu Only) 2 puff IH Q4HR PRN #1 inhalation 03/27/19 Unknown Rx [ProAir HFA Inhaler] predniSONE [Deltasone] 40 mg PO QDAY 7 Days #14 tablet 03/27/19 Unknown Rx Prednisone [predniSONE 10 mg 10 mg PO .TAPER #1 tab.ds.pk 05/10/19 Unknown Rx (6-Day Pack, 21 Tabs)] levoFLOXacin [Levaquin TAB] 500 mg PO QDAY 7 Days #7 tablet 05/10/19 Unknown Rx Albuterol INH(or & Nicu Only) 2 puff IH Q4HR PRN #1 inhalation 05/24/19 Unknown Rx [ProAir HFA Inhaler] Albuterol Sulfate [Albuterol 0.63% 0.63 mg IH Q4HR PRN #30 ml 05/24/19 Unknown Rx NEBS] Azithromycin [Zithromax Z-ZECHARIAH] 250 mg PO DAILY #6 tablet 05/24/19 Unknown Rx Cetirizine HCl [Zyrtec 10mg tab] 10 mg PO DAILY #30 tablet 05/24/19 Unknown Rx Codeine Phosphate/Guaifenesin 180 ml PO Q12HR PRN #180 liquid 05/24/19 Unknown Rx [Guaifenesin-Codeine Syrup] Ibuprofen [Motrin] 800 mg PO Q8HR PRN #30 tablet 05/24/19 Unknown Rx predniSONE [Deltasone] 20 mg PO DAILY #15 tablet 05/24/19 Unknown Rx ALBUTEROL NEB's [Proventil 0.083% 2.5 mg IH TID PRN #1 box 06/26/19 Unknown Rx NEBS] Albuterol INH(or & Nicu Only) 2 puff IH QID PRN #8.5 gram 07/18/19 Unknown Rx [ProAir HFA Inhaler] Naproxen 500 mg PO BID PRN #20 tablet 07/18/19 Unknown Rx Prednisone [predniSONE 10 mg 10 mg PO .TAPER #1 tab.ds.pk 07/18/19 Unknown Rx (6-Day Pack, 21 Tabs)] methOCARBAMOL [Robaxin TAB] 500 mg PO BID PRN #20 tablet 07/18/19 Unknown Rx Albuterol INH(or & Nicu Only) 2 puff IH QID PRN #8.5 gram 08/10/19 Unknown Rx [ProAir HFA Inhaler] Albuterol Sulfate [Albuterol 0.63% 0.63 mg IH TID PRN #90 ml 08/10/19 Unknown Rx NEBS] HYDROcodone/APAP 5-325 [[place] 1 - 2 each PO Q6HR PRN #14 tablet 08/10/19 Unknown Rx 5/325] Ibuprofen [Motrin 800 MG tab] 800 mg PO Q8HR PRN #20 tablet 08/10/19 Unknown Rx Prednisone [predniSONE 10 mg 10 mg PO .TAPER #1 tab.ds.pk 08/10/19 Unknown Rx (6-Day Pack, 21 Tabs)] Albuterol INH(or & Nicu Only) 2 puff IH QID PRN #1 inhalation 08/25/19 Unknown Rx [ProAir HFA Inhaler] Azithromycin [Zithromax] 500 mg PO QDAY #5 tablet 08/25/19 Unknown Rx predniSONE [Deltasone] 50 mg PO QDAY #5 tab 08/25/19 Unknown Rx Albuterol INH(or & Nicu Only) 2 puff IH QID PRN #8.5 gram 09/03/19 Unknown Rx [ProAir HFA Inhaler] Albuterol Sulfate [Albuterol 0.63% 0.63 mg IH TID PRN #90 ml 09/03/19 Unknown Rx NEBS] HYDROcodone/APAP 5-325 [[place] 1 - 2 each PO Q6HR PRN #10 tablet 09/03/19 Unknown Rx 5/325] Ibuprofen [Motrin 800 MG tab] 800 mg PO Q8HR PRN #20 tablet 09/03/19 Unknown Rx Prednisone [predniSONE 10 mg 10 mg PO .TAPER #1 tab.ds.pk 09/03/19 Unknown Rx (6-Day Pack, 21 Tabs)] Benzonatate [Tessalon Perles] 100 mg PO Q8HR PRN #20 capsule 09/19/19 Unknown Rx Montelukast [Singulair] 10 mg PO QPM #14 tablet 09/19/19 Unknown Rx guaiFENesin/CODEINE [Robitussin AC] 5 ml PO Q6H PRN #120 ml 09/19/19 Unknown Rx predniSONE [Deltasone] 20 mg PO QDAY 5 Days #5 tab 09/19/19 Unknown Rx Allergies Allergy/AdvReac Type Severity Reaction Status Date / Time No Known Allergies Allergy Verified 09/26/18 17:17 ED Review of Systems ROS: Stated complaint: ASTHMA/CHEST PAIN Other details as noted in HPI Comment: All other systems reviewed and negative ED Past Medical Hx - Past Medical History Previous Medical History?: Yes Hx Asthma: Yes Additional medical history: Chronic TMJ, pneumonia - Surgical History Past Surgical History?: Yes Additional Surgical History: Left TMJ surgery - Social History Smoking Status: Never Smoker Substance Use Type: None - Medications Home Medications: Home Medications Medication Instructions Recorded Confirmed Last Taken Type Fluticasone/Salmeterol [Advair 1 each IH BID #1 blst.w.dev 02/09/18 04/11/18 04/08/18 10:00 Rx 100-50 Diskus] predniSONE [Deltasone] 50 mg PO QDAY #5 tab 04/12/18 Unknown Rx Azithromycin [Zithromax TAB] 250 mg PO QDAY #4 tablet 09/26/18 Unknown Rx Guaifenesin/Pseudoephedrne HCl 1 tab PO BID PRN #20 tab 09/26/18 Unknown Rx [Mucinex D ER 1,200-120 mg Tab] Albuterol INH(or & Nicu Only) 2 puff IH QID PRN #1 inhalation 03/12/19 Unknown Rx [ProAir HFA Inhaler] Azithromycin [Zithromax] 500 mg PO QDAY #5 tablet 03/12/19 Unknown Rx guaiFENesin/CODEINE [Robitussin AC] 5 ml PO Q6H PRN #120 ml 03/12/19 Unknown Rx predniSONE [Deltasone] 50 mg PO QDAY #5 tab 03/12/19 Unknown Rx Albuterol INH(or & Nicu Only) 2 puff IH Q4HR PRN #1 inhalation 03/27/19 Unknown Rx [ProAir HFA Inhaler] predniSONE [Deltasone] 40 mg PO QDAY 7 Days #14 tablet 03/27/19 Unknown Rx Prednisone [predniSONE 10 mg 10 mg PO .TAPER #1 tab.ds.pk 05/10/19 Unknown Rx (6-Day Pack, 21 Tabs)] levoFLOXacin [Levaquin TAB] 500 mg PO QDAY 7 Days #7 tablet 05/10/19 Unknown Rx Albuterol INH(or & Nicu Only) 2 puff IH Q4HR PRN #1 inhalation 05/24/19 Unknown Rx [ProAir HFA Inhaler] Albuterol Sulfate [Albuterol 0.63% 0.63 mg IH Q4HR PRN #30 ml 05/24/19 Unknown Rx NEBS] Azithromycin [Zithromax Z-ZECHARIAH] 250 mg PO DAILY #6 tablet 05/24/19 Unknown Rx Cetirizine HCl [Zyrtec 10mg tab] 10 mg PO DAILY #30 tablet 05/24/19 Unknown Rx Codeine Phosphate/Guaifenesin 180 ml PO Q12HR PRN #180 liquid 05/24/19 Unknown Rx [Guaifenesin-Codeine Syrup] Ibuprofen [Motrin] 800 mg PO Q8HR PRN #30 tablet 05/24/19 Unknown Rx predniSONE [Deltasone] 20 mg PO DAILY #15 tablet 05/24/19 Unknown Rx ALBUTEROL NEB's [Proventil 0.083% 2.5 mg IH TID PRN #1 box 06/26/19 Unknown Rx NEBS] Albuterol INH(or & Nicu Only) 2 puff IH QID PRN #8.5 gram 07/18/19 Unknown Rx [ProAir HFA Inhaler] Naproxen 500 mg PO BID PRN #20 tablet 07/18/19 Unknown Rx Prednisone [predniSONE 10 mg 10 mg PO .TAPER #1 tab.ds.pk 07/18/19 Unknown Rx (6-Day Pack, 21 Tabs)] methOCARBAMOL [Robaxin TAB] 500 mg PO BID PRN #20 tablet 07/18/19 Unknown Rx Albuterol INH(or & Nicu Only) 2 puff IH QID PRN #8.5 gram 08/10/19 Unknown Rx [ProAir HFA Inhaler] Albuterol Sulfate [Albuterol 0.63% 0.63 mg IH TID PRN #90 ml 08/10/19 Unknown Rx NEBS] HYDROcodone/APAP 5-325 [[place] 1 - 2 each PO Q6HR PRN #14 tablet 08/10/19 Unknown Rx 5/325] Ibuprofen [Motrin 800 MG tab] 800 mg PO Q8HR PRN #20 tablet 08/10/19 Unknown Rx Prednisone [predniSONE 10 mg 10 mg PO .TAPER #1 tab.ds.pk 08/10/19 Unknown Rx (6-Day Pack, 21 Tabs)] Albuterol INH(or & Nicu Only) 2 puff IH QID PRN #1 inhalation 08/25/19 Unknown Rx [ProAir HFA Inhaler] Azithromycin [Zithromax] 500 mg PO QDAY #5 tablet 08/25/19 Unknown Rx predniSONE [Deltasone] 50 mg PO QDAY #5 tab 08/25/19 Unknown Rx Albuterol INH(or & Nicu Only) 2 puff IH QID PRN #8.5 gram 09/03/19 Unknown Rx [ProAir HFA Inhaler] Albuterol Sulfate [Albuterol 0.63% 0.63 mg IH TID PRN #90 ml 09/03/19 Unknown Rx NEBS] HYDROcodone/APAP 5-325 [[place] 1 - 2 each PO Q6HR PRN #10 tablet 09/03/19 Unknown Rx 5/325] Ibuprofen [Motrin 800 MG tab] 800 mg PO Q8HR PRN #20 tablet 09/03/19 Unknown Rx Prednisone [predniSONE 10 mg 10 mg PO .TAPER #1 tab.ds.pk 09/03/19 Unknown Rx (6-Day Pack, 21 Tabs)] Benzonatate [Tessalon Perles] 100 mg PO Q8HR PRN #20 capsule 09/19/19 Unknown Rx Montelukast [Singulair] 10 mg PO QPM #14 tablet 09/19/19 Unknown Rx guaiFENesin/CODEINE [Robitussin AC] 5 ml PO Q6H PRN #120 ml 09/19/19 Unknown Rx predniSONE [Deltasone] 20 mg PO QDAY 5 Days #5 tab 09/19/19 Unknown Rx ED Physical Exam - General Limitations: No Limitations General appearance: alert, in no apparent distress - Head Head exam: Present: atraumatic, normocephalic - Eye Eye exam: Present: normal appearance - ENT ENT exam: Present: mucous membranes moist - Neck Neck exam: Present: normal inspection - Respiratory Respiratory exam: Present: normal lung sounds bilaterally. Absent: respiratory distress - Cardiovascular Cardiovascular Exam: Present: regular rate, normal rhythm. Absent: systolic murmur, diastolic murmur, rubs, gallop - GI/Abdominal GI/Abdominal exam: Present: soft, normal bowel sounds - Extremities Exam Extremities exam: Present: normal inspection - Back Exam Back exam: Present: normal inspection - Neurological Exam Neurological exam: Present: alert, oriented X3 - Psychiatric Psychiatric exam: Present: normal affect, normal mood - Skin Skin exam: Present: warm, dry, intact, normal color. Absent: rash ED Course Vital Signs 09/19/19 14:41 Temperature 99.2 F Pulse Rate 103 H Respiratory 18 Rate Blood Pressure 147/88 O2 Sat by Pulse 95 Oximetry ED Medical Decision Making - Radiology Data Radiology results: report reviewed, image reviewed INDICATION / CLINICAL INFORMATION: cough/wheezing. COMPARISON: Chest x-ray 09/13/2019 FINDINGS: SUPPORT DEVICES: None. HEART / MEDIASTINUM: No significant abnormality. LUNGS / PLEURA: No significant pulmonary or pleural abnormality. No pneumothora x. ADDITIONAL FINDINGS: No significant additional findings. IMPRESSION: 1. No acute findings. Signer Name: Michael Murphy MD Signed: 09/19/2019 3:11 PM Workstation Name: [id number] Transcribed By: TL Dictated By: Michael Murphy MD Electronically Authenticated By: Michael Murphy MD Signed Date/Time: 09/19/19 1511 - Medical Decision Making 34-year-old female presents with asthma exacerbation (Mild) ED course: Patient received a breathing treatment, prednisone, cough suppressant in the ED. Chest x-ray ordered, chest x-ray shows no acute findings. Patient had no respiratory distress in the ED. Post treatment evaluation: No wheezing heard, no use of accessory muscles, I discussed with the patient to follow up with her primary care physician. I discussed with the patient will be going home on with albuterol inhaler as well as nebulizer Vital signs are normalized, patient is saturation at 99% on room air. I discussed with the patient is symptoms worsen to return to ED immediately. Critical care attestation.: If time is entered above; I have spent that time in minutes in the direct care of this critically ill patient, excluding procedure time. ED Disposition Clinical Impression: Asthma exacerbation Disposition: DC-01 TO HOME OR SELFCARE Is pt being admited?: No Does the pt Need Aspirin: No Condition: Stable Instructions: Asthma (ED) Additional Instructions: Make sure to follow up with the primary care physician as discussed. Take all your medications as you've been prescribed. If you have any worsening symptoms or develop new symptoms please return to ED immediately. Prescriptions: predniSONE [Deltasone] 20 mg PO QDAY 5 Days #5 tab guaiFENesin/CODEINE [Robitussin AC] 5 ml PO Q6H PRN #120 ml PRN Reason: Cough Montelukast [Singulair] 10 mg PO QPM #14 tablet Benzonatate [Tessalon Perles] 100 mg PO Q8HR PRN #20 capsule PRN Reason: Cough Referrals: PRIMARY CARE, [Primary Care Provider] - 3-5 Days [facility] [Outside] - 3-5 Days [facility] [Outside] - 3-5 Days Forms: Accompanied Note, Work/School Release Form(ED) Time of Disposition: 16:57
[2019-09-19 19:23] VITALS: BP 132/87
== END 2019-09-19 19:24 | disposition home or self-care (01) ==
LOC: ED 14:32
DX: J45.901 Unspecified asthma with (acute) exacerbation (principal); Z98.890 Other specified postprocedural states; Z79.899 Other long term (current) drug therapy
CPT/HCPCS: 71046; 94640; 99283; J7512

== ENCOUNTER 2019-10-17 15:56 | Emergency (ER) | payer SELFPAY ==
[2019-10-17] MEDS ORDERED: dexAMETHasone 20 MG/5 ML VIAL IV ONE (16:54)
[2019-10-17] MEDS ORDERED: ALBUTEROL 2.5 MG/3 ML NEBU IH ONE (16:54)
[2019-10-17] MEDS ORDERED: IPRATROPIUM 0.02% NEBU 2.5 ML IH ONE (16:54)
--- NOTE | 2019-10-17 16:54 | Event Note ---
ED Screening Note ED Screening Note: asthma exacerbation that began last night states she uses neb machine and albuterol inhaler no fever no productive cough dry cough no sick contacts no rhinorrhea no sore throat PMHx TMJ no allergies to meds LNMP 2 weeks ago This initial assessment/diagnostic orders/clinical plan/treatment(s) is/are subj ect to change based on patients health status, clinical progression and re- assessment by fellow clinical providers in the ED. Further treatment and workup at subsequent clinical providers discretion. Patient/guardian urged not to elope from the ED as their condition may be serious if not clinically assessed and managed. Initial orders include: neb tx, steroids
[2019-10-17 16:56] VITALS: BP 128/82
[2019-10-17] MEDS ORDERED: dexAMETHasone 20 MG/5 ML VIAL IM ONE (17:11)
--- NOTE | 2019-10-17 18:22 | Emergency Department Report ---
ED Asthma HPI - General Chief Complaint: Adult Asthma Stated Complaint: ASTHMA Time Seen by Provider: 10/17/19 16:52 Source: patient Mode of arrival: Ambulatory Limitations: No Limitations - History of Present Illness Initial Comments: This is a 34-year-old female nontoxic, well nourished in appearance, no acute signs of distress presents to the ED with c/o of acute on chronic asthma exacerbation. Patient denies any cough. Patient denies any sick contact. Patient denies any recent travels, long car, recent hospital stays. Patient denies any calf pain or calf tenderness. Patient denies any chest pain, short of breath, fever, chills, nausea, vomiting, hemoptysis, numbness, tingling, headache or stiff neck. Past medical history includes asthma. MD Complaint: shortness of breath, wheezing -: days(s) Severity: mild Context: none known Associated Symptoms: none - Related Data Previous Rx's Medication Instructions Recorded Last Taken Type Fluticasone/Salmeterol [Advair 1 each IH BID #1 blst.w.dev 02/09/18 04/08/18 10:00 Rx 100-50 Diskus] predniSONE [Deltasone] 50 mg PO QDAY #5 tab 04/12/18 Unknown Rx Azithromycin [Zithromax TAB] 250 mg PO QDAY #4 tablet 09/26/18 Unknown Rx Guaifenesin/Pseudoephedrne HCl 1 tab PO BID PRN #20 tab 09/26/18 Unknown Rx [Mucinex D ER 1,200-120 mg Tab] Albuterol INH(or & Nicu Only) 2 puff IH QID PRN #1 inhalation 03/12/19 Unknown Rx [ProAir HFA Inhaler] Azithromycin [Zithromax] 500 mg PO QDAY #5 tablet 03/12/19 Unknown Rx guaiFENesin/CODEINE [Robitussin AC] 5 ml PO Q6H PRN #120 ml 03/12/19 Unknown Rx predniSONE [Deltasone] 50 mg PO QDAY #5 tab 03/12/19 Unknown Rx Albuterol INH(or & Nicu Only) 2 puff IH Q4HR PRN #1 inhalation 03/27/19 Unknown Rx [ProAir HFA Inhaler] predniSONE [Deltasone] 40 mg PO QDAY 7 Days #14 tablet 03/27/19 Unknown Rx Prednisone [predniSONE 10 mg 10 mg PO .TAPER #1 tab.ds.pk 05/10/19 Unknown Rx (6-Day Pack, 21 Tabs)] levoFLOXacin [Levaquin TAB] 500 mg PO QDAY 7 Days #7 tablet 05/10/19 Unknown Rx Albuterol INH(or & Nicu Only) 2 puff IH Q4HR PRN #1 inhalation 05/24/19 Unknown Rx [ProAir HFA Inhaler] Albuterol Sulfate [Albuterol 0.63% 0.63 mg IH Q4HR PRN #30 ml 05/24/19 Unknown Rx NEBS] Azithromycin [Zithromax Z-ZECHARIAH] 250 mg PO DAILY #6 tablet 05/24/19 Unknown Rx Cetirizine HCl [Zyrtec 10mg tab] 10 mg PO DAILY #30 tablet 05/24/19 Unknown Rx Codeine Phosphate/Guaifenesin 180 ml PO Q12HR PRN #180 liquid 05/24/19 Unknown Rx [Guaifenesin-Codeine Syrup] Ibuprofen [Motrin] 800 mg PO Q8HR PRN #30 tablet 05/24/19 Unknown Rx predniSONE [Deltasone] 20 mg PO DAILY #15 tablet 05/24/19 Unknown Rx ALBUTEROL NEB's [Proventil 0.083% 2.5 mg IH TID PRN #1 box 06/26/19 Unknown Rx NEBS] Albuterol INH(or & Nicu Only) 2 puff IH QID PRN #8.5 gram 07/18/19 Unknown Rx [ProAir HFA Inhaler] Naproxen 500 mg PO BID PRN #20 tablet 07/18/19 Unknown Rx Prednisone [predniSONE 10 mg 10 mg PO .TAPER #1 tab.ds.pk 07/18/19 Unknown Rx (6-Day Pack, 21 Tabs)] methOCARBAMOL [Robaxin TAB] 500 mg PO BID PRN #20 tablet 07/18/19 Unknown Rx Albuterol INH(or & Nicu Only) 2 puff IH QID PRN #8.5 gram 08/10/19 Unknown Rx [ProAir HFA Inhaler] Albuterol Sulfate [Albuterol 0.63% 0.63 mg IH TID PRN #90 ml 08/10/19 Unknown Rx NEBS] HYDROcodone/APAP 5-325 [Baxley 1 - 2 each PO Q6HR PRN #14 tablet 08/10/19 Unknown Rx 5/325] Ibuprofen [Motrin 800 MG tab] 800 mg PO Q8HR PRN #20 tablet 08/10/19 Unknown Rx Prednisone [predniSONE 10 mg 10 mg PO .TAPER #1 tab.ds.pk 08/10/19 Unknown Rx (6-Day Pack, 21 Tabs)] Albuterol INH(or & Nicu Only) 2 puff IH QID PRN #1 inhalation 08/25/19 Unknown Rx [ProAir HFA Inhaler] Azithromycin [Zithromax] 500 mg PO QDAY #5 tablet 08/25/19 Unknown Rx predniSONE [Deltasone] 50 mg PO QDAY #5 tab 08/25/19 Unknown Rx Albuterol INH(or & Nicu Only) 2 puff IH QID PRN #8.5 gram 09/03/19 Unknown Rx [ProAir HFA Inhaler] Albuterol Sulfate [Albuterol 0.63% 0.63 mg IH TID PRN #90 ml 09/03/19 Unknown Rx NEBS] HYDROcodone/APAP 5-325 [Baxley 1 - 2 each PO Q6HR PRN #10 tablet 09/03/19 Unknown Rx 5/325] Ibuprofen [Motrin 800 MG tab] 800 mg PO Q8HR PRN #20 tablet 09/03/19 Unknown Rx Prednisone [predniSONE 10 mg 10 mg PO .TAPER #1 tab.ds.pk 09/03/19 Unknown Rx (6-Day Pack, 21 Tabs)] Benzonatate [Tessalon Perles] 100 mg PO Q8HR PRN #20 capsule 09/19/19 Unknown Rx Montelukast [Singulair] 10 mg PO QPM #14 tablet 09/19/19 Unknown Rx guaiFENesin/CODEINE [Robitussin AC] 5 ml PO Q6H PRN #120 ml 09/19/19 Unknown Rx predniSONE [Deltasone] 20 mg PO QDAY 5 Days #5 tab 09/19/19 Unknown Rx ALBUTEROL NEB's [Proventil 0.083% 2.5 mg IH TID PRN #1 box 10/17/19 Unknown Rx NEBS] Albuterol INH(or & Nicu Only) 2 puff IH QID PRN #8.5 gram 10/17/19 Unknown Rx [ProAir HFA Inhaler] Prednisone [predniSONE 10 mg 10 mg PO .TAPER #1 tab.ds.pk 10/17/19 Unknown Rx (6-Day Pack, 21 Tabs)] Allergies Allergy/AdvReac Type Severity Reaction Status Date / Time No Known Allergies Allergy Verified 09/26/18 17:17 ED Review of Systems ROS: Stated complaint: ASTHMA Other details as noted in HPI Constitutional: denies: chills, fever Eyes: denies: eye pain, eye discharge, vision change ENT: denies: ear pain, throat pain Respiratory: shortness of breath, wheezing. denies: cough Cardiovascular: denies: chest pain, palpitations Endocrine: no symptoms reported Gastrointestinal: denies: abdominal pain, nausea, diarrhea Genitourinary: denies: urgency, dysuria, discharge Musculoskeletal: denies: back pain, joint swelling, arthralgia Skin: denies: rash, lesions Neurological: denies: headache, weakness, paresthesias Psychiatric: denies: anxiety, depression Hematological/Lymphatic: denies: easy bleeding, easy bruising ED Past Medical Hx - Past Medical History Previous Medical History?: Yes Hx Asthma: Yes Additional medical history: Chronic TMJ, pneumonia - Surgical History Past Surgical History?: Yes Additional Surgical History: Left TMJ surgery - Social History Smoking Status: Never Smoker Substance Use Type: None - Medications Home Medications: Home Medications Medication Instructions Recorded Confirmed Last Taken Type Fluticasone/Salmeterol [Advair 1 each IH BID #1 blst.w.dev 02/09/18 04/11/18 04/08/18 10:00 Rx 100-50 Diskus] predniSONE [Deltasone] 50 mg PO QDAY #5 tab 04/12/18 Unknown Rx Azithromycin [Zithromax TAB] 250 mg PO QDAY #4 tablet 09/26/18 Unknown Rx Guaifenesin/Pseudoephedrne HCl 1 tab PO BID PRN #20 tab 09/26/18 Unknown Rx [Mucinex D ER 1,200-120 mg Tab] Albuterol INH(or & Nicu Only) 2 puff IH QID PRN #1 inhalation 03/12/19 Unknown Rx [ProAir HFA Inhaler] Azithromycin [Zithromax] 500 mg PO QDAY #5 tablet 03/12/19 Unknown Rx guaiFENesin/CODEINE [Robitussin AC] 5 ml PO Q6H PRN #120 ml 03/12/19 Unknown Rx predniSONE [Deltasone] 50 mg PO QDAY #5 tab 03/12/19 Unknown Rx Albuterol INH(or & Nicu Only) 2 puff IH Q4HR PRN #1 inhalation 03/27/19 Unknown Rx [ProAir HFA Inhaler] predniSONE [Deltasone] 40 mg PO QDAY 7 Days #14 tablet 03/27/19 Unknown Rx Prednisone [predniSONE 10 mg 10 mg PO .TAPER #1 tab.ds.pk 05/10/19 Unknown Rx (6-Day Pack, 21 Tabs)] levoFLOXacin [Levaquin TAB] 500 mg PO QDAY 7 Days #7 tablet 05/10/19 Unknown Rx Albuterol INH(or & Nicu Only) 2 puff IH Q4HR PRN #1 inhalation 05/24/19 Unknown Rx [ProAir HFA Inhaler] Albuterol Sulfate [Albuterol 0.63% 0.63 mg IH Q4HR PRN #30 ml 05/24/19 Unknown Rx NEBS] Azithromycin [Zithromax Z-ZECHARIAH] 250 mg PO DAILY #6 tablet 05/24/19 Unknown Rx Cetirizine HCl [Zyrtec 10mg tab] 10 mg PO DAILY #30 tablet 05/24/19 Unknown Rx Codeine Phosphate/Guaifenesin 180 ml PO Q12HR PRN #180 liquid 05/24/19 Unknown Rx [Guaifenesin-Codeine Syrup] Ibuprofen [Motrin] 800 mg PO Q8HR PRN #30 tablet 05/24/19 Unknown Rx predniSONE [Deltasone] 20 mg PO DAILY #15 tablet 05/24/19 Unknown Rx ALBUTEROL NEB's [Proventil 0.083% 2.5 mg IH TID PRN #1 box 06/26/19 Unknown Rx NEBS] Albuterol INH(or & Nicu Only) 2 puff IH QID PRN #8.5 gram 07/18/19 Unknown Rx [ProAir HFA Inhaler] Naproxen 500 mg PO BID PRN #20 tablet 07/18/19 Unknown Rx Prednisone [predniSONE 10 mg 10 mg PO .TAPER #1 tab.ds.pk 07/18/19 Unknown Rx (6-Day Pack, 21 Tabs)] methOCARBAMOL [Robaxin TAB] 500 mg PO BID PRN #20 tablet 07/18/19 Unknown Rx Albuterol INH(or & Nicu Only) 2 puff IH QID PRN #8.5 gram 08/10/19 Unknown Rx [ProAir HFA Inhaler] Albuterol Sulfate [Albuterol 0.63% 0.63 mg IH TID PRN #90 ml 08/10/19 Unknown Rx NEBS] HYDROcodone/APAP 5-325 [Baxley 1 - 2 each PO Q6HR PRN #14 tablet 08/10/19 Unknown Rx 5/325] Ibuprofen [Motrin 800 MG tab] 800 mg PO Q8HR PRN #20 tablet 08/10/19 Unknown Rx Prednisone [predniSONE 10 mg 10 mg PO .TAPER #1 tab.ds.pk 08/10/19 Unknown Rx (6-Day Pack, 21 Tabs)] Albuterol INH(or & Nicu Only) 2 puff IH QID PRN #1 inhalation 08/25/19 Unknown Rx [ProAir HFA Inhaler] Azithromycin [Zithromax] 500 mg PO QDAY #5 tablet 08/25/19 Unknown Rx predniSONE [Deltasone] 50 mg PO QDAY #5 tab 08/25/19 Unknown Rx Albuterol INH(or & Nicu Only) 2 puff IH QID PRN #8.5 gram 09/03/19 Unknown Rx [ProAir HFA Inhaler] Albuterol Sulfate [Albuterol 0.63% 0.63 mg IH TID PRN #90 ml 09/03/19 Unknown Rx NEBS] HYDROcodone/APAP 5-325 [Baxley 1 - 2 each PO Q6HR PRN #10 tablet 09/03/19 Unknown Rx 5/325] Ibuprofen [Motrin 800 MG tab] 800 mg PO Q8HR PRN #20 tablet 09/03/19 Unknown Rx Prednisone [predniSONE 10 mg 10 mg PO .TAPER #1 tab.ds.pk 09/03/19 Unknown Rx (6-Day Pack, 21 Tabs)] Benzonatate [Tessalon Perles] 100 mg PO Q8HR PRN #20 capsule 09/19/19 Unknown Rx Montelukast [Singulair] 10 mg PO QPM #14 tablet 09/19/19 Unknown Rx guaiFENesin/CODEINE [Robitussin AC] 5 ml PO Q6H PRN #120 ml 09/19/19 Unknown Rx predniSONE [Deltasone] 20 mg PO QDAY 5 Days #5 tab 09/19/19 Unknown Rx ALBUTEROL NEB's [Proventil 0.083% 2.5 mg IH TID PRN #1 box 10/17/19 Unknown Rx NEBS] Albuterol INH(or & Nicu Only) 2 puff IH QID PRN #8.5 gram 10/17/19 Unknown Rx [ProAir HFA Inhaler] Prednisone [predniSONE 10 mg 10 mg PO .TAPER #1 tab.ds.pk 10/17/19 Unknown Rx (6-Day Pack, 21 Tabs)] ED Physical Exam - General Limitations: No Limitations General appearance: alert, in no apparent distress - Head Head exam: Present: atraumatic, normocephalic - Eye Eye exam: Present: normal appearance - Neck Neck exam: Present: normal inspection, full ROM. Absent: tenderness, meningismus, lymphadenopathy - Respiratory Respiratory exam: Present: wheezes. Absent: respiratory distress, rales, rhonchi, stridor, chest wall tenderness, accessory muscle use, decreased breath sounds, prolonged expiratory - Cardiovascular Cardiovascular Exam: Present: regular rate, normal rhythm, normal heart sounds. Absent: irregular rhythm, systolic murmur, diastolic murmur, rubs, gallop - Extremities Exam Extremities exam: Present: normal inspection, full ROM - Back Exam Back exam: Present: normal inspection, full ROM. Absent: tenderness, CVA tenderness (R), CVA tenderness (L), muscle spasm, paraspinal tenderness, vertebral tenderness, rash noted - Neurological Exam Neurological exam: Present: alert, oriented X3, normal gait - Psychiatric Psychiatric exam: Present: normal affect, normal mood - Skin Skin exam: Present: warm, dry, intact, normal color. Absent: rash ED Course Vital Signs 10/17/19 16:54 Temperature 98.7 F Pulse Rate 98 H Respiratory 18 Rate Blood Pressure 128/82 O2 Sat by Pulse 98 Oximetry - Reevaluation(s) Reevaluation #1: 10/17/19 18:22 Patient is speaking in full sentences with no signs of distress noted. ED Medical Decision Making - Medical Decision Making This is a 34-year-old female that presents with asthma exacerbation. Patient is stable and was examined by me. Chest x-ray has been obtained and dictated by the radiologist within normal limits. Patient is notified of the x-ray report with no questions noted by the patient. Patient did receive breathing treatment and steroids in the ED which patient the symptoms has resolved and subsided. Posttreatment and there is no wheezing upon auscultation. Patient is discharged with albuterol and prednisone. Patient was referred to Follow-up with a primary care doctor in 3-5 days or if symptoms worsen and continue return to emergency room as soon as possible. At time of discharge, the patient does not seem toxic or ill in appearance. No acute signs of distress noted. Patient agrees to discharge treatment plan of care. No further questions noted by the patient. This chart is dictated with using [employer] Critical care attestation.: If time is entered above; I have spent that time in minutes in the direct care of this critically ill patient, excluding procedure time. ED Disposition Clinical Impression: Asthma exacerbation Qualifiers: Asthma severity: mild Asthma persistence: intermittent Qualified Code(s): J45.21 - Mild intermittent asthma with (acute) exacerbation Disposition: - TO HOME OR SELFCARE Is pt being admited?: No Does the pt Need Aspirin: No Condition: Stable Instructions: Asthma (ED) Additional Instructions: Follow-up with a primary care doctor in 3-5 days or if symptoms worsen and continue return to emergency room as soon as possible. Prescriptions: Prednisone [predniSONE 10 mg (6-Day Pack, 21 Tabs)] 10 mg PO .TAPER #1 tab.ds.pk Albuterol INH(or & Nicu Only) [ProAir HFA Inhaler] 2 puff IH QID PRN #8.5 gram PRN Reason: Shortness Of Breath ALBUTEROL NEB's [Proventil 0.083% NEBS] 2.5 mg IH TID PRN #1 box PRN Reason: Wheezing Referrals: PRIMARY CAREMD [Primary Care Provider] - 3-5 Days BENJI STRINGER MD [Staff Physician] - 3-5 Days [facility] [Outside] - 3-5 Days Forms: Work/School Release Form(ED)
== END 2019-10-17 19:19 | disposition home or self-care (01) ==
LOC: ED 15:56
DX: J45.901 Unspecified asthma with (acute) exacerbation (principal); Z98.890 Other specified postprocedural states; Z79.899 Other long term (current) drug therapy
CPT/HCPCS: 94640; 96372; 99282; J1100